=== PATIENT | male | born 1985 | race Caucasian/White ===

== ENCOUNTER 2016-07-10 13:33 | Emergency (ER) | payer MEDICARE, OTHER ==
[2016-07-10 13:33] VITALS: BMI 26.5
[2016-07-10] MEDS ORDERED: Sodium Chloride 0.9% 1,000 ML IV STA (14:10)
--- NOTE | 2016-07-10 14:10 | C.PDOC ---
History Of Present Illness Patient is a 31 y/o male, whose PMHx includes rheumatoid arthritis, psoriasis, HTN, and diabetes, brought to the ED by parents for evaluation of loss of appetite for the last 2 days. As per father, pt has been refusing to eat or drink anything for the last 2-3 days, notes eating less than usual. Father also states he noticed change in pt's urine color. HPI limited due to patient's non- verbal condition. Time Seen by Provider: 07/10/16 13:36 Chief Complaint (Nursing): GI Problem History Per: Family (father) History/Exam Limitations: no limitations Onset/Duration Of Symptoms: Days (3) Current Symptoms Are (Timing): Still Present Recent travel outside of the [place]: No Additional History Per: Family Past Medical History Reviewed: Historical Data, Nursing Documentation, Vital Signs Vital Signs: Last Vital Signs Temp 98.8 F 07/10/16 13:57 Pulse 118 H 07/10/16 13:57 Resp 18 07/10/16 13:57 BP 111/85 07/10/16 13:57 Pulse Ox 97 07/10/16 14:31 - Medical History PMH: Anemia, Anxiety, Arthritis, Asthma, Diabetes, Graves' Disease, HTN, Hypercholesterolemia, Kidney Stones, Chronic Kidney Disease, Rheumatoid Arthritis - [facility] Procedures CIRCUMCISION (04/23/14) DX ULTRASOUND-HEART (03/25/14) INFLUENZA VACCINATION (02/12/14) VACCINATION NEC (02/12/14) VENOUS CATHETERIZATION NEC (04/23/14) Family History: States: No Known Family Hx - Social History Hx Tobacco Use: No Hx Alcohol Use: No Hx Substance Use: No - Immunization History Hx Tetanus Toxoid Vaccination: Yes Hx Influenza Vaccination: Yes Hx Pneumococcal Vaccination: (unk) Review Of Systems Review Of Systems: ROS cannot be obtained secondary to pt's inabilty to answer questions. Physical Exam - Physical Exam Additional Physical Exam Comments: Constitutional: No acute distress. Head: Atraumatic. Eyes: PERRL. ENT: Moist mucous membranes. No pharyngeal erythema. Neck: Supple. Cardiovascular: Regular rate. Radial pulse 2+ bilaterally. Chest: No tenderness. Respiratory: Clear to auscultation bilaterally. GI: Soft. Nontender. Nondistended. Back: No CVA tenderness. Musculoskeletal: No tenderness or swelling of extremities. Skin: Scattered erythematous plaques with dry flaky skin in the torso and extremities. Neurologic: Alert, no focal deficit. ED Course And Treatment - Laboratory Results Result Diagrams: 07/10/16 14:36 07/10/16 14:36 O2 Sat by Pulse Oximetry: 97 Medical Decision Making Medical Decision Making: Progress note: Labs, CXR ordered and reviewed. Patient was given IV fluids. CXR: no acute changes compared to previous. UA shows UTI. Culture sent. Labs and HR at baseline, no evidence of dehydration. Will prescribe Macrobid for UTI with tapering steroid dose as parents states patient always has reaction to any antibiotic given. Instructed to f/u with PMD, continue PO hydration, and to return to ER for lethargy, vomiting, fever, or any worsening problem. Disposition - Disposition Disposition: HOME/ ROUTINE Disposition Time: 15:22 Condition: STABLE Prescriptions: Nitrofurantoin Macrocrystals [Macrobid] 100 mg PO BID #20 cap predniSONE [Prednisone] 4 tab PO DAILY #28 tab Instructions: Urinary Tract Infection in Men (ED) - Clinical Impression Clinical Impression: Urinary tract infection - Scribe Statement The provider has reviewed the documentation as recorded by the Kyleibaminah Landis Provider Attestation: All medical record entries made by the Chelsea were at my direction and personally dictated by me. I have reviewed the chart and agree that the record accurately reflects my personal performance of the history, physical exam, medical decision making, and the department course for this patient. I have also personally directed, reviewed, and agree with the discharge instructions and disposition.
[2016-07-10] MEDS ORDERED: Sodium Chloride 0.9% 1,000 ML ONE (14:25)
[2016-07-10 14:39] LABS: BASO # 0.2 K/uL (0.0-0.2); EOS # 0.2 K/uL (0.0-0.7); MONO # 1.3 K/uL (0.0-0.8); NRBC % 0.1 % (0.0-2.0)
[2016-07-10 14:45] LABS: RBC URINE 2 /hpf (0-3); URINE BILIRUBIN NEGATIVE (NEGATIVE); URINE BLOOD NEGATIVE (NEGATIVE); URINE COLOR Yellow (YELLOW); URINE GLUCOSE (UA) NORMAL (Normal); URINE KETONE NEGATIVE (NEGATIVE); URINE LEUKOCYTE ESTERASE 1+ Leu/uL (Negative); URINE PROTEIN 1+ mg/dL (NEGATIVE); URINE UROBILINOGEN NORMAL mg/dL (0.2-1.0); WBC URINE 27 /hpf (0-5)
[2016-07-10 14:52] LABS: BASO % 0.9 % (0.0-2.0); EOS % 0.9 % (0.0-4.0); HEMATOCRIT 37.4 % (35.0-51.0); LYMPH # 2.5 K/uL (1.0-4.3); LYMPH % 12.3 % (20.0-40.0); MEAN CELL VOLUME 72.7 fL (80.0-94.0); MEAN CORPUSCULAR HEMOGLOBIN 21.9 pg (27.0-31.0); MEAN CORPUSCULAR HGB CONC 30.1 g/dL (33.0-37.0); MEAN PLATELET VOLUME 6.4 fL (7.2-11.7); MONO % 6.5 % (0.0-10.0); RED CELL DISTRIBUTION WIDTH 19.4 % (11.5-14.5)
[2016-07-10 14:55] LABS: CHLORIDE 94 mmol/L (98-107); SODIUM 136 mmol/L (132-148)
[2016-07-10 14:57] LABS: GFR AFRICAN-AMERICAN > 60
[2016-07-10 14:58] LABS: ALB/GLOB RATIO 0.8 (1.0-2.1); ALKALINE PHOSPHATASE 136 U/L (38-126); ALT/SGPT 9 U/L (21-72); AST/SGOT 12 U/L (17-59); BILIRUBIN,TOTAL 0.5 mg/dL (0.2-1.3); BLOOD UREA NITROGEN 7 mg/dL (9-20); CALCIUM 9.4 mg/dl (8.6-10.4); CARBON DIOXIDE 27 mmol/L (22-30); GLUCOSE,RANDOM 128 mg/dL (75-110); TOTAL PROTEIN 8.6 g/dL (6.3-8.3)
--- NOTE | 2016-07-10 16:03 | RAD ---
HISTORY: decreased appetite COMPARISON: No prior. FINDINGS: LUNGS: Diffuse increased interstitial lung markings which may represent mild venous congestion. Upper lobe granulomatous changes. Upper lobe atelectatic changes. PLEURA: As above. CARDIOVASCULAR: Cardiomegaly which may be exaggerated by portable technique. Correlation with dedicated PA and lateral view may be helpful. Right paratracheal prominence may represent prominent vasculature. OSSEOUS STRUCTURES: No significant abnormalities. VISUALIZED UPPER ABDOMEN: Normal. OTHER FINDINGS: None. IMPRESSION: Diffuse increased interstitial lung markings which may represent mild venous congestion. Upper lobe granulomatous changes. Upper lobe atelectatic changes. Cardiomegaly which may be exaggerated by portable technique. Correlation with dedicated PA and lateral view may be helpful. Right paratracheal prominence may represent prominent vasculature.
[2016-07-10 16:18] VITALS: BP 121/78; PULSE 120; RESP 20; TEMP 99.8; O2SAT 98
== END 2016-07-10 16:19 | disposition home or self-care (01) ==
LOC: C.ER 13:33
DX: N39.0 Urinary tract infection, site not specified (principal)
CPT/HCPCS: 71010; 80053; 81001; 83690; 83735; 84100; 85025; 87040; 87086; 96360; 99285; J7040

== ENCOUNTER 2017-02-20 11:09 | Inpatient (IN) | payer MEDICARE, OTHER ==
[2017-02-20 11:25] VITALS: BMI 25.7
[2017-02-20] MEDS ORDERED: Lactated Ringer's 1,000 ML IV ONE (11:58)
--- NOTE | 2017-02-20 12:18 | C.PDOC ---
History Of Present Illness 32 y/o male with PMH of Autism, HTN, recurrent UTI, psoriasis and Rheumatoid Arthritis brought to ED by parents with complaints of worsening redness and swelling to left leg for 2 weeks and Dark yellow urine. Patient was seen by PMD 2 weeks ago and given steroids with no relief as per parents. Patient is non verbal and history obtained from parents. Parents deny patient having fever, chills, nausea, vomiting or any other complaints at this time. Time Seen by Provider: 02/20/17 11:42 Chief Complaint (Nursing): Lower Extremity Problem/Injury History Per: Family History/Exam Limitations: physical impairment (Non verbal) Onset/Duration Of Symptoms: Days Current Symptoms Are (Timing): Still Present Past Medical History Reviewed: Historical Data, Nursing Documentation, Vital Signs Vital Signs: Last Vital Signs Temp 98.4 F 02/20/17 11:25 Pulse 100 H 02/20/17 14:00 Resp 18 02/20/17 14:00 BP 126/78 02/20/17 14:00 Pulse Ox 98 02/20/17 15:54 - Medical History PMH: Anemia, Anxiety, Arthritis, Asthma, Diabetes, Graves' Disease, HTN, Hypercholesterolemia, Kidney Stones, Chronic Kidney Disease, Rheumatoid Arthritis Surgical History: No Surg Hx - [facility] Procedures CIRCUMCISION (04/23/14) DX ULTRASOUND-HEART (03/25/14) INFLUENZA VACCINATION (02/12/14) VACCINATION NEC (02/12/14) VENOUS CATHETERIZATION NEC (04/23/14) Family History: States: No Known Family Hx - Social History Hx Tobacco Use: No Hx Alcohol Use: No Hx Substance Use: No - Immunization History Hx Tetanus Toxoid Vaccination: Yes Hx Influenza Vaccination: Yes Hx Pneumococcal Vaccination: Yes Review Of Systems Review Of Systems: ROS cannot be obtained secondary to pt's inabilty to answer questions. (Patient is non verbal) Physical Exam - Physical Exam Appears: Chronically Ill, Other (muscle atrophy, non verbal) Skin: Warm, Dry, Rash (Diffuse plaque psoriasis to scalp, torso and extremities) Head: Atraumatic, Normacephalic Eye(s): bilateral: Normal Inspection Oral Mucosa: Moist Neck: Normal ROM Chest: Symmetrical Cardiovascular: Rhythm Regular Respiratory: Normal Breath Sounds, No Rales, No Rhonchi, No Wheezing Gastrointestinal/Abdominal: Soft, No Tenderness, No Guarding, No Rebound Extremity: No Normal ROM (Left leg is in flexed position, unable to extend and is baseline), No Calf Tenderness, Other (swelling and tenderness to left foot with bright erthema, pulse is weak but palpable. ) Pulses: Left Dorsalis Pedis: Decreased (+1 palpable pulse), Right Dorsalis Pedis : Decreased (+1 palpable pulse) Pain Response: Withdraws With Pain Disoriented To: Place, Time, Situation Gait: Unable To Assess ED Course And Treatment - Laboratory Results Result Diagrams: 02/20/17 12:41 02/20/17 12:41 O2 Sat by Pulse Oximetry: 98 (RA) Pulse Ox Interpretation: Normal Medical Decision Making Medical Decision Making: Case was discussed with attending Dr Soto, who also examined patient at bedside, recommends Xray of foot All labs reviewed, leukocytosis without bands. Glucose 134. Lactate 1.4. Urine shows UTI. Patient has multiple sensitivities of antibiotics. During last admission patient treated with Tigecycline and will place order. 1354 Discussed case with hospitalist who admits for Dr Hsu. Patient accepted to hospitalist service. Parents are requesting to stay with patient on floor as he is Autistic with special needs. 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 - Scribe Statement The provider has reviewed the documentation as recorded by the Kyleibaminah Field All medical record entries made by the Kyleibaminah were at my direction and personally dictated by me. I have reviewed the chart and agree that the record accurately reflects my personal performance of the history, physical exam, medical decision making, and the department course for this patient. I have also personally directed, reviewed, and agree with the discharge instructions and disposition. Decision To Admit - Pt Status Changed To: Hospital Disposition Of: Inpatient - Admit Certification Admit to Inpatient:: After my assessment, the patient will require hospitalization for at least two midnights. This is because of the severity of symptoms shown, intensity of services needed, and/or the medical risk in this patient being treated as an outpatient. - InPatient: Physician Admission Certification: I certify that this patient requires 2 or more midnights of care for the following reason:: Patient with PMH Autism has acute UTI, which are recurrent. Patient has multiple sensitivities of antibiotics, will need ID consult. Patient with special needs and will benefit from inpatient treatment of UTI with IV antibiotics. - . Bed Request Type: Regular Admitting Physician: Doc Springer Patient Diagnosis: Urinary tract infection, Foot swelling, Rheumatoid arthritis
[2017-02-20 12:37] LABS: RBC URINE 128 /hpf (0-3); URINE BILIRUBIN NEGATIVE (NEGATIVE); URINE BLOOD 3+ (NEGATIVE); URINE COLOR Yellow (YELLOW); URINE GLUCOSE (UA) NORMAL (Normal); URINE KETONE NEGATIVE (NEGATIVE); URINE LEUKOCYTE ESTERASE 2+ Leu/uL (Negative); URINE PROTEIN 2+ mg/dL (NEGATIVE); WBC URINE 24 /hpf (0-5)
[2017-02-20 12:46] LABS: BASO # 0.1 K/uL (0.0-0.2); BASO % 0.7 % (0.0-2.0); EOS # 0.1 K/uL (0.0-0.7); EOS % 0.5 % (0.0-4.0); HEMATOCRIT 35.9 % (35.0-51.0); LYMPH # 2.7 K/uL (1.0-4.3); LYMPH % 13.5 % (20.0-40.0); MEAN CORPUSCULAR HEMOGLOBIN 24.1 pg (27.0-31.0); MEAN CORPUSCULAR HGB CONC 31.2 g/dL (33.0-37.0); MEAN PLATELET VOLUME 6.5 fL (7.2-11.7); MONO # 1.5 K/uL (0.0-0.8); MONO % 7.4 % (0.0-10.0); WHITE BLOOD COUNT 20.2 K/uL (4.8-10.8)
[2017-02-20 12:50] LABS: MEAN CELL VOLUME 77.1 fL (80.0-94.0)
[2017-02-20 13:00] LABS: ALKALINE PHOSPHATASE 133 U/L (38-126); ALT/SGPT 31 U/L (21-72); AST/SGOT 14 U/L (17-59); BILIRUBIN,TOTAL 0.6 mg/dL (0.2-1.3); BLOOD UREA NITROGEN 9 mg/dL (9-20); CALCIUM 8.6 mg/dl (8.6-10.4); CARBON DIOXIDE 27 mmol/L (22-30); CHLORIDE 98 mmol/L (98-107); GFR AFRICAN-AMERICAN > 60; GLUCOSE,RANDOM 134 mg/dL (75-110); POTASSIUM 3.5 mmol/L (3.6-5.2); SODIUM 134 mmol/L (132-148); TOTAL PROTEIN 7.4 g/dL (6.3-8.3)
--- NOTE | 2017-02-20 13:27 | RAD ---
PROCEDURE: Left Foot Radiographs. HISTORY: swelling to foot, h.o RA COMPARISON: None. FINDINGS: BONES: Normal. No fracture. JOINTS: There is joint space narrowing of the MTP and PIP joints. There is no obvious bony erosive change. There is osteopenia SOFT TISSUES: Normal. OTHER FINDINGS: None. IMPRESSION: There is joint space narrowing of the MTP and PIP joints. There is no obvious bony erosive change. There is osteopenia
--- NOTE | 2017-02-20 16:18 | CP.PCM.HP ---
<ToniEphraim bañuelosri NenoJames - Last Filed: 02/20/17 16:20> History of Present Illness - History of Present Illness History of Present Illness: CC: UTI, lower extremity edema HPI: Patient is a 32 year old male who is nonverbal with a history of autism, asthma, HTN, DM, chronic UTI, nephrolithiasis, psoriasis, and RA, presents to the ED with his parents (Darrell- Mother, Gerardo- Father) with the complaint of worsening redness and swelling of his left leg as well as dark yellow urine. The leg swelling began three weeks ago and has been intermittent, but has recently gotten worse. Patient saw PMD, Dr. Verdin) who prescribed 20 mg for five days (stopped two weeks ago) with no relief. Patient has been bed bound for the past two years due to worsening RA and psoriasis. As per the parents, the patient keeps his left leg bent at 90 degrees and cannot extend due to the pain. The patient also becomes very upset if the leg lower extremity is touched. As per the parents, the patient has also had 2-3 days of uncontrolled bowel movements, described as green and foul smelling; Patient's parents denies diarrhea, vomiting, and fevers. PMD: Dr. Verdin PMHx: autism, asthma, HTN, DM, chronic UTI, nephrolithiasis, psoriasis, and RA SurgHx: circumcision 2014 (for chronic UTI) FamHx: Aunt- breast cancer; grandparents- DM, HTN, [place] SocHx: denies tobacco, alcohol, and drug use; Lives with parents at home (Kristahia - Mother, Gerardo- Father) Allergies: multiple, please see EMR Medications: multiple, please see EMR Present on Admission - Present on Admission Any Indicators Present on Admission: No Review of Systems - Review of Systems Systems not reviewed;Unavailable: Other (Patient is nonverbal.) Past Patient History - Infectious Disease Hx of Infectious Diseases: None - Past Medical History & Family History Past Medical History?: Yes - Past Social History Smoking Status: Never Smoked - CARDIAC Hx Hypercholesterolemia: Yes Hx Hypertension: Yes - PULMONARY Hx Asthma: Yes - NEUROLOGICAL Hx Neurological Disorder: Yes Other/Comment: autism - HEENT Hx HEENT Problems: No - RENAL Hx Chronic Kidney Disease: Yes Hx Kidney Stones: Yes - ENDOCRINE/METABOLIC Hx Endocrine Disorders: Yes Hx Diabetes Mellitus Type 1: Yes Hx Diabetes Mellitus Type 2: Yes - HEMATOLOGICAL/ONCOLOGICAL Hx Anemia: Yes - INTEGUMENTARY Hx Dermatological Problems: Yes Hx Psoriasis: Yes - MUSCULOSKELETAL/RHEUMATOLOGICAL Hx Arthritis: Yes Hx Rheumatoid Arthritis: Yes - GASTROINTESTINAL Hx Gastrointestinal Disorders: Yes Hx Gastroesophageal Reflux: Yes - GENITOURINARY/GYNECOLOGICAL Hx Genitourinary Disorders: Yes Hx Urinary Tract Infection: Yes - PSYCHIATRIC Hx Anxiety: Yes Hx Substance Use: No - SURGICAL HISTORY Hx Surgeries: Yes Other/Comment: H/O Venous catheterization,Circumcision last Apr 2014 - ANESTHESIA Hx Anesthesia: Yes Hx Anesthesia Reactions: No Hx Malignant Hyperthermia: No Meds Allergies/Adverse Reactions: Allergies Allergy/AdvReac Type Severity Reaction Status Date / Time ciprofloxacin [From Cipro] Allergy Severe URTICARIA Verified 07/10/16 13:53 ciprofloxacin HCl Allergy Severe URTICARIA Verified 07/10/16 13:53 [From Cipro] piperacillin sodium Allergy Severe URTICARIA Verified 07/10/16 13:53 [From Zosyn] sulfamethoxazole Allergy Severe URTICARIA Verified 07/10/16 13:53 [From Bactrim] tazobactam sodium Allergy Severe URTICARIA Verified 07/10/16 13:53 [From Zosyn] tetracycline Allergy Severe URTICARIA Verified 07/10/16 13:53 trimethoprim [From Bactrim] Allergy Severe URTICARIA Verified 07/10/16 13:53 Penicillins Allergy URTICARIA Verified 07/10/16 13:53 Physical Exam - Head Exam Head Exam: NORMOCEPHALIC Additional comments: Psoriatic lesions/plaques on scalp - Eye Exam Eye Exam: EOMI, Normal appearance - ENT Exam ENT Exam: Mucous Membranes Moist - Respiratory Exam Respiratory Exam: Decreased Breath Sounds (patient not cooperative with exam), Clear to Auscultation Bilateral, NORMAL BREATHING PATTERN. absent: Rhonchi, Wheezes, Respiratory Distress - Cardiovascular Exam Cardiovascular Exam: REGULAR RHYTHM, +S1, +S2 - GI/Abdominal Exam GI & Abdominal Exam: Normal Bowel Sounds, Soft. absent: Distended, Firm, Guarding, Mass - Extremities Exam Extremities exam: Positive for: joint swelling (Left knee, ankle foot- swelling , erythematous, tender to palpation, decreased ROM (pt keeps leg flexed at 90deg and cannot extend 2/2 pain)), pedal edema. Negative for: normal inspection - Neurological Exam Neurological exam: Alert, Altered - Psychiatric Exam Additional comments: Patient has history of autism. - Skin Additional comments: Psoriatic lesions/plaques throughout entire body. Results - Vital Signs Recent Vital Signs: Last Vital Signs Temp 98.4 F 02/20/17 11:25 Pulse 100 H 02/20/17 14:00 Resp 18 02/20/17 14:00 BP 126/78 02/20/17 14:00 Pulse Ox 98 02/20/17 15:56 - Labs Result Diagrams: 02/20/17 12:41 02/20/17 12:41 Labs: Laboratory Results - last 24 hr 02/20/17 02/20/17 02/20/17 12:12 12:41 12:41 WBC 20.2 H RBC 4.66 Hgb 11.2 L Hct 35.9 MCV 77.1 L D MCH 24.1 L MCHC 31.2 L RDW 20.0 H Plt Count 662 H D MPV 6.5 L Neut % (Auto) 77.9 H Lymph % (Auto) 13.5 L [place] % (Auto) 7.4 Eos % (Auto) 0.5 Baso % (Auto) 0.7 Neut # 15.8 H Lymph # 2.7 [place] # 1.5 H Eos # 0.1 Baso # 0.1 Sodium 134 Potassium 3.5 L Chloride 98 Carbon Dioxide 27 Anion Gap 13 BUN 9 Creatinine 0.3 L Est GFR ( Amer) > 60 Est GFR (Non-Af Amer) > 60 Random Glucose 134 H Lactic Acid Calcium 8.6 Total Bilirubin 0.6 AST 14 L ALT 31 Alkaline Phosphatase 133 H Total Protein 7.4 Albumin 3.8 Globulin 3.6 Albumin/Globulin Ratio 1.0 Urine Color Yellow Urine Clarity Hazy Urine pH 6.0 Ur Specific Randall 1.016 Urine Protein 2+ H Urine Glucose (UA) Normal Urine Ketones Negative Urine Blood 3+ H Urine Nitrate Negative Urine Bilirubin Negative Urine Urobilinogen 2.0 Ur Leukocyte Esterase 2+ H Urine WBC (Auto) 24 H Urine RBC (Auto) 128 H Ur Squamous Epith Cells 1 Hyaline Casts 3-5 H 02/20/17 12:41 WBC RBC Hgb Hct MCV MCH MCHC RDW Plt Count MPV Neut % (Auto) Lymph % (Auto) [place] % (Auto) Eos % (Auto) Baso % (Auto) Neut # Lymph # [place] # Eos # Baso # Sodium Potassium Chloride Carbon Dioxide Anion Gap BUN Creatinine Est GFR ( Amer) Est GFR (Non-Af Amer) Random Glucose Lactic Acid 1.5 Calcium Total Bilirubin AST ALT Alkaline Phosphatase Total Protein Albumin Globulin Albumin/Globulin Ratio Urine Color Urine Clarity Urine pH Ur Specific Randall Urine Protein Urine Glucose (UA) Urine Ketones Urine Blood Urine Nitrate Urine Bilirubin Urine Urobilinogen Ur Leukocyte Esterase Urine WBC (Auto) Urine RBC (Auto) Ur Squamous Epith Cells Hyaline Casts Assessment & Plan (1) Swelling of left lower extremity Assessment and Plan: Foot xray: joint space narrowing of MTP & PIP joints; no bony or erosive changes ; there is osteopenia. Possibly secondary to infection, psoriasis, or RA. ID consulted, Dr. Cazares, help appreciated. Status: Acute (2) Urinary tract infection Assessment and Plan: Patient has a history of chronic UTIs; Patient has a circumcision in 2014 for chronic UTIs. Leukocytosis likely secondary to UTI. UA: 2+ protein, 3+ blood, 2+ LE, 24WBC, 128 RBCs, 3-5 hyaline casts. Urine cx: f/u results In ED, patient was given one dose of Tigecycline. Patient has multiple drug allergies, and a history of multiresistant UTIs. ID consulted, Dr. Cazares, help appreciated. Antibiotics will be started as per ID. Status: Acute (3) Leukocytosis Assessment and Plan: Likely secondary to UTI WBC 20.2 at admission Afebrile Patient received one dose of Tigecycline in ED. ID consulted, Dr. Cazares, help appreciated Antibiotics will be started as per ID. Blood cx: f/u results Urine cx: f/u results Status: Acute (4) HTN (hypertension) Assessment and Plan: Continue home medications. Monitor vitals. Status: Acute (5) Abnormal bowel movement Assessment and Plan: C.Diff: f/u results Stool cx: f/u results Ova&parasites: f/u results Stool leukocytes: f/u results Status: Acute (6) Rheumatoid arthritis Assessment and Plan: Left LE swelling and erythema, possibly secondary to rheumatoid arthritis Status: Chronic (7) Autism disorder Assessment and Plan: Parents, Darrell and Gerardo, have requested patient has private room. Parents report they will be with patient 24/10, as patient needs constant assistance. Status: Chronic Priority: Low (8) Psoriasis Assessment and Plan: Left LE swelling and erythema, possibly secondary to psorasis vs infection secondary to psoriatic lesions Status: Chronic (9) Diabetes mellitus Assessment and Plan: Home medication, Metformin, held. ISS Accuchecks Monitor daily blood glucose A1c: f/u results Status: Chronic Priority: Medium (10) Prophylactic measure Assessment and Plan: C/I SCDs 2/2 LE swelling and pain Pepcid 20mg PO BID Heparin 5,000 SC Q8h Consistent low carb heart healthy diet Status: Acute <Doc Springer - Last Filed: 02/20/17 19:10> Results - Vital Signs Recent Vital Signs: Last Vital Signs Temp 98.4 F 02/20/17 11:25 Pulse 100 H 02/20/17 14:00 Resp 18 02/20/17 14:00 BP 126/78 02/20/17 14:00 Pulse Ox 98 02/20/17 15:56 - Labs Result Diagrams: 02/20/17 12:41 02/20/17 12:41 Labs: Laboratory Results - last 24 hr 02/20/17 02/20/17 02/20/17 12:12 12:41 12:41 WBC 20.2 H RBC 4.66 Hgb 11.2 L Hct 35.9 MCV 77.1 L D MCH 24.1 L MCHC 31.2 L RDW 20.0 H Plt Count 662 H D MPV 6.5 L Neut % (Auto) 77.9 H Lymph % (Auto) 13.5 L [place] % (Auto) 7.4 Eos % (Auto) 0.5 Baso % (Auto) 0.7 Neut # 15.8 H Lymph # 2.7 [place] # 1.5 H Eos # 0.1 Baso # 0.1 Sodium 134 Potassium 3.5 L Chloride 98 Carbon Dioxide 27 Anion Gap 13 BUN 9 Creatinine 0.3 L Est GFR ( Amer) > 60 Est GFR (Non-Af Amer) > 60 POC Glucose (mg/dL) Random Glucose 134 H Lactic Acid Calcium 8.6 Total Bilirubin 0.6 AST 14 L ALT 31 Alkaline Phosphatase 133 H Total Protein 7.4 Albumin 3.8 Globulin 3.6 Albumin/Globulin Ratio 1.0 Urine Color Yellow Urine Clarity Hazy Urine pH 6.0 Ur Specific Randall 1.016 Urine Protein 2+ H Urine Glucose (UA) Normal Urine Ketones Negative Urine Blood 3+ H Urine Nitrate Negative Urine Bilirubin Negative Urine Urobilinogen 2.0 Ur Leukocyte Esterase 2+ H Urine WBC (Auto) 24 H Urine RBC (Auto) 128 H Ur Squamous Epith Cells 1 Hyaline Casts 3-5 H 02/20/17 02/20/17 12:41 17:18 WBC RBC Hgb Hct MCV MCH MCHC RDW Plt Count MPV Neut % (Auto) Lymph % (Auto) [place] % (Auto) Eos % (Auto) Baso % (Auto) Neut # Lymph # [place] # Eos # Baso # Sodium Potassium Chloride Carbon Dioxide Anion Gap BUN Creatinine Est GFR ( Amer) Est GFR (Non-Af Amer) POC Glucose (mg/dL) 187 H Random Glucose Lactic Acid 1.5 Calcium Total Bilirubin AST ALT Alkaline Phosphatase Total Protein Albumin Globulin Albumin/Globulin Ratio Urine Color Urine Clarity Urine pH Ur Specific Randall Urine Protein Urine Glucose (UA) Urine Ketones Urine Blood Urine Nitrate Urine Bilirubin Urine Urobilinogen Ur Leukocyte Esterase Urine WBC (Auto) Urine RBC (Auto) Ur Squamous Epith Cells Hyaline Casts Attending/Attestation - Attestation I have personally seen and examined this patient.: Yes I have fully participated in the care of the patient.: Yes I have reviewed all pertinent clinical information: Yes Notes (Text): Patient is a 32 year old male who is nonverbal with a history of autism, asthma , HTN, DM, chronic UTI, nephrolithiasis, psoriasis, and RA, presents to the ED with his parents (Darrell- Mother, Gerardo- Father) with the complaint of worsening redness and swelling of his left leg as well as dark yellow urine. Patient was seen and examined.Discussed with his parents at bedside.Patient has psoriasis rash,severe on his scalp and extremities.Has feet edema with cellulites. Has leukocytosis with UA positive for UTI.No fever,no cough,no abdominal pain. He has multiple drug allergy.He was on levaquin at home for UTI.He is bed bound He was given Tigecycline at ER Discussed with the resident I agree with the documentation of the assessment and the plan
[2017-02-20] MEDS: (Novolin R) Insulin Human Regular 100 units/ml vial SC SCH ×2 (16:30→22:09)
[2017-02-20] MEDS ORDERED: LEVOFLOXACIN 500 MG PO SCH (17:30)
[2017-02-20] MEDS: Sodium Chloride 0.9% 1,000 ML IV SCH (18:02)
[2017-02-20] MEDS ORDERED: Meropenem 1 GM in Sodium Chloride 0.9% 100 ML IVPB SCH (22:00)
[2017-02-21] MEDS: Sodium Chloride 0.9% 1,000 ML IV SCH ×2 (02:15→05:32)
[2017-02-21 07:43] LABS: BASO % 0.1 % (0.0-2.0); HEMATOCRIT 37.2 % (35.0-51.0); LYMPH # 0.4 K/uL (1.0-4.3); LYMPH % 2.5 % (20.0-40.0); MEAN CELL VOLUME 78.4 fL (80.0-94.0); MEAN CORPUSCULAR HEMOGLOBIN 24.7 pg (27.0-31.0); MEAN CORPUSCULAR HGB CONC 31.5 g/dL (33.0-37.0); MEAN PLATELET VOLUME 7.3 fL (7.2-11.7); MONO # 0.1 K/uL (0.0-0.8); MONO % 0.6 % (0.0-10.0); PLATELET COUNT 623 K/uL (130-400); RED CELL DISTRIBUTION WIDTH 20.1 % (11.5-14.5); WHITE BLOOD COUNT 17.7 K/uL (4.8-10.8)
[2017-02-21] MEDS: Albuterol HFA 90 mcg/actuation (8 g) IH SCH (07:48)
[2017-02-21] MEDS: (Novolin R) Insulin Human Regular 100 units/ml vial SC SCH ×4 (08:22→22:50)
[2017-02-21 08:23] LABS: ALB/GLOB RATIO 1.1 (1.0-2.1); ALKALINE PHOSPHATASE 147 U/L (38-126); ALT/SGPT 26 U/L (21-72); AST/SGOT 18 U/L (17-59); BILIRUBIN,TOTAL 0.6 mg/dL (0.2-1.3); BLOOD UREA NITROGEN 9 mg/dL (9-20); CALCIUM 8.5 mg/dl (8.6-10.4); CARBON DIOXIDE 23 mmol/L (22-30); CHLORIDE 98 mmol/L (98-107); GFR AFRICAN-AMERICAN > 60; GLUCOSE,RANDOM 249 mg/dL (75-110); POTASSIUM 3.7 mmol/L (3.6-5.2); SODIUM 134 mmol/L (132-148); TOTAL PROTEIN 7.2 g/dL (6.3-8.3)
[2017-02-21 08:50] LABS: TOTAL CELLS COUNTED 100
[2017-02-21 08:51] LABS: LARGE PLATELETS PRESENT; NEUTROPHIL 98 % (50-75)
--- NOTE | 2017-02-21 10:04 | CP.PCM.PN ---
<Stephani Alcaraz - Last Filed: 02/21/17 15:53> Subjective - Date & Time of Evaluation Date of Evaluation: 02/21/17 Time of Evaluation: 10:01 - Subjective Subjective: Patient was seen and examined at bedside with mother in room. As per the mother , patient was itchy yesterday afternoon, but that resolved overnight and patient had no other events. Mother reports the patient has developed a cough this morning, but is unsure if its productive as the patient cannot bring up any mucus. ROS not obtained as patient is nonverbal. Objective - Vital Signs/Intake and Output Vital Signs (last 24 hours): Temp Pulse Resp BP Pulse Ox 97.9 F 123 H 20 153/85 H 98 02/21/17 09:00 02/21/17 09:00 02/21/17 09:00 02/21/17 09:00 02/21/17 09:00 Intake and Output: 02/21/17 02/21/17 06:59 18:59 Intake Total 850 1320 Output Total 650 Balance 850 670 - Medications Medications: Current Medications Albuterol (Ventolin Hfa 90 Mcg/Actuation (8 G)) 1 puff IH RBID [facility] Last Admin: 02/21/17 07:48 Dose: Not Given Amlodipine Besylate (Norvasc) 5 mg PO BID [facility] Last Admin: 02/20/17 18:05 Dose: 5 mg Dicyclomine HCl (Bentyl) 20 mg PO BID [facility] Last Admin: 02/20/17 22:08 Dose: 20 mg Diphenhydramine HCl (Benadryl) 25 mg PO Q8 PRN PRN Reason: Itching,IF NO RELIEF W/ CREAM Last Admin: 02/21/17 05:18 Dose: 25 mg Famotidine (Pepcid) 20 mg PO BID [facility] Last Admin: 02/20/17 18:05 Dose: 20 mg Ferrous Sulfate (Feosol) 325 mg PO BID [facility] Last Admin: 02/20/17 19:29 Dose: 325 mg Heparin Sodium (Porcine) (Heparin) 5,000 units SC Q8 [facility] Last Admin: 02/21/17 05:19 Dose: 5,000 units Hydrocortisone (Cortizone 1% Cream) 1 gm TOP BID PRN PRN Reason: Itching / Pruritus Sodium Chloride (Sodium Chloride 0.9%) 1,000 mls @ 100 mls/hr IV .Q10H [facility] Last Admin: 02/21/17 05:32 Dose: 100 mls/hr Meropenem 1 gm/ Sodium (Chloride) 50 mls @ 100 mls/hr IVPB Q8 [facility] Last Admin: 02/21/17 05:19 Dose: 100 mls/hr Insulin Human Regular (Novolin R) 0 unit SC ACHS [facility] PRN Reason: Protocol Last Admin: 02/21/17 08:22 Dose: 3 unit Losartan Potassium (Cozaar) 100 mg PO DAILY [facility] Montelukast Sodium (Singulair) 10 mg PO HS [facility] Last Admin: 02/20/17 22:23 Dose: 10 mg - Labs Labs: 02/21/17 07:29 02/21/17 07:29 - Additional Findings Additional findings: - Head Exam Head Exam: NORMOCEPHALIC Additional comments: Psoriatic lesions/plaques on scalp - Eye Exam Eye Exam: EOMI, Normal appearance - ENT Exam ENT Exam: Mucous Membranes Moist - Respiratory Exam Respiratory Exam: Decreased Breath Sounds (patient not cooperative with exam), Clear to Auscultation Bilateral, NORMAL BREATHING PATTERN. absent: Rhonchi, Wheezes, Respiratory Distress - Cardiovascular Exam Cardiovascular Exam: REGULAR RHYTHM, +S1, +S2 - GI/Abdominal Exam GI & Abdominal Exam: Normal Bowel Sounds, Soft. absent: Distended, Firm, Guarding, Mass - Extremities Exam Extremities exam: Positive for: joint swelling (Left knee, ankle foot- swelling , erythematous, tender to palpation, decreased ROM (pt keeps leg flexed at 90deg and cannot extend 2/2 pain)), pedal edema. Negative for: normal inspection - Neurological Exam Neurological exam: Alert, Altered - Psychiatric Exam Additional comments: Patient has history of autism. - Skin Additional comments: Left foot/ankle- erythematous, swelling noted; tender to palpation Psoriatic lesions/plaques throughout entire body. Assessment and Plan (1) Cellulitis of left leg Status: Acute (2) Urinary tract infection Status: Acute (3) Leukocytosis Status: Acute (4) HTN (hypertension) Status: Acute (5) Abnormal bowel movement Status: Acute (6) Rheumatoid arthritis Status: Chronic (7) Autism disorder Status: Chronic (8) Psoriasis Status: Chronic (9) Diabetes mellitus Status: Chronic (10) Prophylactic measure Status: Acute - Assessment and Plan (Free Text) Plan: Assessment & Plan (1) Cellulitis of left leg Assessment and Plan: Foot xray: joint space narrowing of MTP & PIP joints; no bony or erosive changes ; there is osteopenia. Possibly secondary to infection, psoriasis, or RA. ID consulted, Dr. Cazares, help appreciated. Podiatry consulted for nail clipping Status: Acute (2) Urinary tract infection Assessment and Plan: Patient has a history of chronic UTIs; Patient has a circumcision in 2014 for chronic UTIs. Leukocytosis likely secondary to UTI. UA: 2+ protein, 3+ blood, 2+ LE, 24WBC, 128 RBCs, 3-5 hyaline casts. Urine cx: no growth In ED, patient was given one dose of Tigecycline. Patient has multiple drug allergies, and a history of multiresistant UTIs. ID consulted, Dr. Cazares, help appreciated. Antibiotics will be started as per ID. * Started Meropenem 1gm IVPB Q8h 02/20 Status: Acute (3) Leukocytosis Assessment and Plan: Likely secondary to UTI WBC 20.2 at admission Improving, trending down 02/21: 17.7 Afebrile Patient received one dose of Tigecycline in ED. ID consulted, Dr. Cazares, help appreciated Antibiotics will be started as per ID. * Started Meropenem 1gm IVPB Q8h 02/20 Blood cx: f/u results Urine cx: no growth Status: Acute (4) HTN (hypertension) Assessment and Plan: Continue home medications. Monitor vitals. Status: Acute (5) Abnormal bowel movement Assessment and Plan: C.Diff: f/u results Stool cx: f/u results Ova&parasites: f/u results Stool leukocytes: f/u results Status: Acute (6) Rheumatoid arthritis Assessment and Plan: Left LE swelling and erythema, possibly secondary to rheumatoid arthritis Status: Chronic (7) Autism disorder Assessment and Plan: Parents, Darrell and Gerardo, have requested patient has private room. Parents report they will be with patient 24/10, as patient needs constant assistance. Status: Chronic (8) Psoriasis Assessment and Plan: Left LE swelling and erythema, likley secondary to cellulitis, but may be secondary to psorasis Hydrocortisone 1% topically as needed Status: Chronic (9) Diabetes mellitus Assessment and Plan: Home medication, Metformin, held. ISS Accuchecks Monitor daily blood glucose A1c: 6.9 Status: Chronic (10) Cough Assessment and Plan: Chest xray: mild venous congestion; right hilar prominence; biapical thickening with upper lobe granulomatous changes; cardiomegaly. (11) Prophylactic measure Assessment and Plan: C/I SCDs 2/2 LE swelling and pain Pepcid 20mg PO BID Heparin 5,000 SC Q8h Consistent low carb heart healthy diet Status: Acute <Doc Springer - Last Filed: 02/24/17 18:02> Objective - Vital Signs/Intake and Output Vital Signs (last 24 hours): Temp Pulse Resp BP Pulse Ox 97.3 F L 117 H 19 127/78 97 02/24/17 16:29 02/24/17 16:29 02/24/17 16:29 02/24/17 16:29 02/24/17 16:29 Intake and Output: 02/24/17 02/24/17 06:59 18:59 Intake Total 980 Balance 980 - Medications Medications: Current Medications Albuterol (Ventolin Hfa 90 Mcg/Actuation (8 G)) 1 puff IH RBID [facility] Last Admin: 02/24/17 07:51 Dose: Not Given Amlodipine Besylate (Norvasc) 5 mg PO BID [facility] Last Admin: 02/24/17 17:23 Dose: 5 mg Clobetasol Propionate (Temovate 0.05% Ointment) 1 applic TOP BID [facility] Last Admin: 02/24/17 17:25 Dose: 1 applic Clotrimazole (Lotrimin 1%) 0 gm TOP BID [facility] Last Admin: 02/24/17 17:24 Dose: 1 applic Dicyclomine HCl (Bentyl) 20 mg PO BID [facility] Last Admin: 02/24/17 17:23 Dose: 20 mg Diphenhydramine HCl (Benadryl) 25 mg PO Q6H PRN PRN Reason: Itching,IF NO RELIEF W/ CREAM Last Admin: 02/23/17 10:04 Dose: 25 mg Famotidine (Pepcid) 20 mg PO BID [facility] Last Admin: 02/24/17 17:23 Dose: 20 mg Ferrous Sulfate (Feosol) 325 mg PO BID [facility] Last Admin: 02/24/17 17:23 Dose: 325 mg Heparin Sodium (Porcine) (Heparin) 5,000 units SC Q8 [facility] Last Admin: 02/24/17 13:09 Dose: 5,000 units Hydrocortisone (Cortizone 1% Cream) 1 gm TOP BID PRN PRN Reason: Itching / Pruritus Last Admin: 02/24/17 17:24 Dose: 1 applic Sodium Chloride (Sodium Chloride 0.45%) 1,000 mls @ 100 mls/hr IV .Q10H [facility] Last Admin: 02/24/17 14:24 Dose: 100 mls/hr Insulin Human Regular (Novolin R) 0 unit SC ACHS [facility] PRN Reason: Protocol Last Admin: 02/24/17 16:44 Dose: Not Given Losartan Potassium (Cozaar) 100 mg PO DAILY [facility] Last Admin: 02/24/17 09:53 Dose: 100 mg Montelukast Sodium (Singulair) 10 mg PO HS [facility] Last Admin: 02/23/17 22:08 Dose: 10 mg Saccharomyces Boulardii (Florastor) 250 mg PO DAILY [facility] Last Admin: 02/24/17 09:52 Dose: 250 mg - Labs Labs: 02/24/17 07:59 02/24/17 07:59 Attending/Attestation - Attestation I have personally seen and examined this patient.: Yes I have fully participated in the care of the patient.: Yes I have reviewed all pertinent clinical information, including history, physical exam and plan: Yes Notes (Text): patient was seen and examined d/w parent and the resident I agree with the residents documentation,assessment and the plan
--- NOTE | 2017-02-21 11:02 | RAD ---
Chest x-ray single frontal view History: Chest infection. Comparison: 07/10/2016 Findings: Mild diffuse increased interstitial lung markings suggestive for mild venous congestion. Right hilar prominence. Biapical pleural thickening with upper lobe granulomatous changes. Cardiomegaly. Degenerative changes in the spine and shoulders. Impression: Mild diffuse increased interstitial lung markings suggestive for mild venous congestion. Right hilar prominence. Biapical pleural thickening with upper lobe granulomatous changes. Cardiomegaly.
[2017-02-21] MEDS: Hydrocortisone 1% Cream (30 GM) TOP PRN (13:19)
--- NOTE | 2017-02-21 14:24 | CP.PCM.CON ---
History of Present Illness - History of Present Illness History of Present Illness: dictated Past Patient History - Infectious Disease Hx of Infectious Diseases: None - Past Medical History & Family History Past Medical History?: Yes - Past Social History Smoking Status: Never Smoked - CARDIAC Hx Hypercholesterolemia: Yes Hx Hypertension: Yes - PULMONARY Hx Asthma: Yes - NEUROLOGICAL Hx Neurological Disorder: Yes Other/Comment: autism - HEENT Hx HEENT Problems: No - RENAL Hx Chronic Kidney Disease: Yes Hx Kidney Stones: Yes - ENDOCRINE/METABOLIC Hx Endocrine Disorders: Yes Hx Diabetes Mellitus Type 1: Yes Hx Diabetes Mellitus Type 2: Yes - HEMATOLOGICAL/ONCOLOGICAL Hx Anemia: Yes - INTEGUMENTARY Hx Dermatological Problems: Yes Hx Psoriasis: Yes - MUSCULOSKELETAL/RHEUMATOLOGICAL Hx Arthritis: Yes Hx Falls: No Hx Rheumatoid Arthritis: Yes - GASTROINTESTINAL Hx Gastrointestinal Disorders: Yes Hx Gastroesophageal Reflux: Yes - GENITOURINARY/GYNECOLOGICAL Hx Genitourinary Disorders: Yes Hx Urinary Tract Infection: Yes - PSYCHIATRIC Hx Anxiety: Yes Hx Substance Use: No - SURGICAL HISTORY Hx Surgeries: Yes Other/Comment: H/O Venous catheterization,Circumcision last Apr 2014 - ANESTHESIA Hx Anesthesia: Yes Hx Anesthesia Reactions: No Hx Malignant Hyperthermia: No Meds Allergies/Adverse Reactions: Allergies Allergy/AdvReac Type Severity Reaction Status Date / Time ciprofloxacin [From Cipro] Allergy Severe URTICARIA Verified 07/10/16 13:53 ciprofloxacin HCl Allergy Severe URTICARIA Verified 07/10/16 13:53 [From Cipro] piperacillin sodium Allergy Severe URTICARIA Verified 07/10/16 13:53 [From Zosyn] sulfamethoxazole Allergy Severe URTICARIA Verified 07/10/16 13:53 [From Bactrim] tazobactam sodium Allergy Severe URTICARIA Verified 07/10/16 13:53 [From Zosyn] tetracycline Allergy Severe URTICARIA Verified 07/10/16 13:53 trimethoprim [From Bactrim] Allergy Severe URTICARIA Verified 07/10/16 13:53 Penicillins Allergy URTICARIA Verified 07/10/16 13:53 - Medications Medications: Current Medications Albuterol (Ventolin Hfa 90 Mcg/Actuation (8 G)) 1 puff IH RBID [facility] Last Admin: 02/21/17 07:48 Dose: Not Given Amlodipine Besylate (Norvasc) 5 mg PO BID [facility] Last Admin: 02/21/17 11:38 Dose: 5 mg Dicyclomine HCl (Bentyl) 20 mg PO BID [facility] Last Admin: 02/21/17 11:38 Dose: 20 mg Diphenhydramine HCl (Benadryl) 25 mg PO Q8 PRN PRN Reason: Itching,IF NO RELIEF W/ CREAM Last Admin: 02/21/17 13:19 Dose: 25 mg Famotidine (Pepcid) 20 mg PO BID [facility] Last Admin: 02/21/17 11:38 Dose: 20 mg Ferrous Sulfate (Feosol) 325 mg PO BID [facility] Last Admin: 02/21/17 11:38 Dose: 325 mg Heparin Sodium (Porcine) (Heparin) 5,000 units SC Q8 [facility] Last Admin: 02/21/17 13:20 Dose: 5,000 units Hydrocortisone (Cortizone 1% Cream) 1 gm TOP BID PRN PRN Reason: Itching / Pruritus Last Admin: 02/21/17 13:19 Dose: 1 applic Sodium Chloride (Sodium Chloride 0.9%) 1,000 mls @ 100 mls/hr IV .Q10H [facility] Last Admin: 02/21/17 05:32 Dose: 100 mls/hr Meropenem 1 gm/ Sodium (Chloride) 50 mls @ 100 mls/hr IVPB Q8 [facility] Last Admin: 02/21/17 13:21 Dose: 100 mls/hr Insulin Human Regular (Novolin R) 0 unit SC ACHS [facility] PRN Reason: Protocol Last Admin: 02/21/17 12:35 Dose: 3 unit Losartan Potassium (Cozaar) 100 mg PO DAILY [facility] Last Admin: 02/21/17 11:38 Dose: 100 mg Montelukast Sodium (Singulair) 10 mg PO HS [facility] Last Admin: 02/20/17 22:23 Dose: 10 mg Results - Vital Signs Recent Vital Signs: Last Vital Signs Temp 97.9 F 02/21/17 09:00 Pulse 123 H 02/21/17 09:00 Resp 20 02/21/17 09:00 BP 153/85 H 02/21/17 09:00 Pulse Ox 98 02/21/17 09:00 - Labs Result Diagrams: 02/21/17 07:29 02/21/17 07:29 Labs: Laboratory Results - last 24 hr 02/20/17 02/20/17 02/21/17 17:18 21:34 07:29 WBC 17.7 H RBC 4.75 Hgb 11.7 L Hct 37.2 MCV 78.4 L MCH 24.7 L MCHC 31.5 L RDW 20.1 H Plt Count 623 H MPV 7.3 Neut % (Auto) 96.8 H Lymph % (Auto) 2.5 L Gaston % (Auto) 0.6 Eos % (Auto) 0.0 Baso % (Auto) 0.1 Neut # 17.2 H Lymph # 0.4 L Gaston # 0.1 Eos # 0.0 Baso # 0.0 Neutrophils % (Manual) 98 H Lymphocytes % (Manual) 2 L Monocytes % (Manual) TEST NOT PERFORMED Platelet Estimate Increased H Large Platelets Present Sodium Potassium Chloride Carbon Dioxide Anion Gap BUN Creatinine Est GFR ( Amer) Est GFR (Non-Af Amer) POC Glucose (mg/dL) 187 H 93 Random Glucose Hemoglobin A1c Calcium Total Bilirubin AST ALT Alkaline Phosphatase Total Protein Albumin Globulin Albumin/Globulin Ratio 02/21/17 02/21/17 02/21/17 07:29 07:29 08:19 WBC RBC Hgb Hct MCV MCH MCHC RDW Plt Count MPV Neut % (Auto) Lymph % (Auto) Gaston % (Auto) Eos % (Auto) Baso % (Auto) Neut # Lymph # Gaston # Eos # Baso # Neutrophils % (Manual) Lymphocytes % (Manual) Monocytes % (Manual) Platelet Estimate Large Platelets Sodium 134 Potassium 3.7 Chloride 98 Carbon Dioxide 23 Anion Gap 16 BUN 9 Creatinine 0.3 L Est GFR ( Amer) > 60 Est GFR (Non-Af Amer) > 60 POC Glucose (mg/dL) 297 H Random Glucose 249 H Hemoglobin A1c 6.9 H Calcium 8.5 L Total Bilirubin 0.6 AST 18 ALT 26 Alkaline Phosphatase 147 H Total Protein 7.2 Albumin 3.7 Globulin 3.5 Albumin/Globulin Ratio 1.1 02/21/17 11:16 WBC RBC Hgb Hct MCV MCH MCHC RDW Plt Count MPV Neut % (Auto) Lymph % (Auto) Gaston % (Auto) Eos % (Auto) Baso % (Auto) Neut # Lymph # Gaston # Eos # Baso # Neutrophils % (Manual) Lymphocytes % (Manual) Monocytes % (Manual) Platelet Estimate Large Platelets Sodium Potassium Chloride Carbon Dioxide Anion Gap BUN Creatinine Est GFR ( Amer) Est GFR (Non-Af Amer) POC Glucose (mg/dL) 284 H Random Glucose Hemoglobin A1c Calcium Total Bilirubin AST ALT Alkaline Phosphatase Total Protein Albumin Globulin Albumin/Globulin Ratio
[2017-02-21] MEDS: Clotrimazole 1% Cream(30 gm) TOP SCH (17:20)
--- NOTE | 2017-02-21 23:15 | CON ---
INFECTIOUS DISEASE CONSULTATION REQUESTED BY: Campbell Springer MD HISTORY OF PRESENT ILLNESS: This patient was admitted for UTI and lower extremity edema. The patient is a 32-year-old male who has history of autism and severe psoriasis, asthma, hypertension, diabetes mellitus, chronic UTI, nephrolithiasis, and rheumatoid arthritis. He is taking care of by his mom and dad and was brought in here with increasing redness and swelling of the left leg and also with a dark urine. The patient has not been ambulatory and they said the swelling started 3 weeks ago and is getting worse. He is seen by the primary and he prescribed some steroids and also patient has been bed bound. Initially, he used to take Enbrel, but Enbrel used to bring in infections because of the urine and the stones and so, the patient has been off it and now he keeps it bent at 90 degrees and cannot extend it due to pain. The patient also has difficult to examine. There is no history of any fever or vomiting or diarrhea. They were giving Levaquin as outpatient and the mother said sometimes he takes it and has no problem, sometimes he develop rash, so I am not sure if he is allergic to other medications as written. HE IS ALLERGIC TO CIPRO, ZOSYN AND HE HAD A RASH TO TYGACIL YESTERDAY. I took the liberty to start him on Merrem, meropenem, and he tolerated it well and he is getting it at this time. PAST MEDICAL HISTORY: Significant for autism, asthma, nephrolithiasis, hypertension, diabetes mellitus, chronic UTI, psoriasis, and rheumatoid arthritis. PAST SURGICAL HISTORY: Circumcision in 2014 for chronic UTI. He also runs like high white count last time and his white count went up to 38,000. FAMILY HISTORY: Significant for aunt having breast cancer and a grandpa has diabetes, hypertension, and [place]. SOCIAL HISTORY: Negative for smoking or drinking or drug abuse. He lives with his parents. ALLERGIES: He is allergic to many drugs as reported here as above. REVIEW OF SYSTEMS: He is nonverbal, but he is not in any respiratory distress at this time. Past medical history is significant as above and has a history of asthma, high cholesterol, and he has autism from and chronic kidney disease, kidney stones, diabetes type 1, psoriasis, rheumatoid arthritis, gastroesophageal reflux disease, UTIs, and had circumcision in 04/2014. ALLERGIES ARE REPORTED TO CIPRO SEVERE URTICARIA AND TO ZOSYN, TRIMETHOPRIM, AND PENICILLIN. So, it becomes very difficult to give him medication, but I am not sure if these are true allergies as the patient already suffers from rash and psoriatic plaques all over. PHYSICAL EXAMINATION: VITAL SIGNS: I find his temperature when he came in the ER. HEENT: He is opening his eyes, eye movements are unremarkable. He has plaques on his scalp. Tongue is moist. NECK: Supple. JVP is flat. LUNGS: Clear. No crackles or rales heard at this time, but breath sounds are decreased. HEART: S1 and S2 is regular. No murmurs appreciated. ABDOMEN: Soft. Nontender. No guarding. No rigidity present. EXTREMITIES: The left leg is totally contracted at 90 degrees at the left knee and the foot is swollen and he has looks like fungal infection and distended to tight and decreased range of movement because of contractures. The right leg is also contracted at 45 degrees from the knee. He has psoriatic scars, more on the legs than hands. Left foot appears red with redness and swelling, but warmth has decreased now and has psoriatic plaques all over his body. MEDICATIONS: He is on Ventolin, Norvasc, Bentyl, Benadryl, Pepcid, Feosol, heparin subcu, on hydrocortisone cream, Novolin R, Cozaar, Vistaril, meropenem. He is on Singulair and he is also getting some IV fluids. LABORATORY AND DIAGNOSTIC DATA: He came with a white count of 20.2, hemoglobin 11.2, hematocrit 35.9, platelet count is 662. Sodium 134, potassium 3.5, chloride 98, CO2 is 27, BUN is 9, creatinine 0.3, and glucose was 134. Labs today was 17.7, hemoglobin 11.7, hematocrit 37.2. Micro haynes, urine culture is negative. Sodium is 134, potassium 3.7, chloride is 98, CO2 is 23, anion gap is 16, BUN is 9, creatinine 0.3. UA shows wbc is 24, rbc 128 and micro haynes, the urine culture remains negative at this time. He had a chest x-ray and the chest x-ray shows mild diffuse increase interstitial lung markings suggestive of mild venous congestion, right hilar prominence, biapical pleural thickening with upper lobe granulomatous changes, which also nothing acute going on and afoot x-ray was done, which shows there is joint space narrowing of MTP and PIP. There is no obvious erosive changes. There is osteopenia. ASSESSMENT AND PLAN: The patient is bed bound and has psoriasis and psoriatic scabs, may probably a psoriatic arthritis. He has developed contractures slightly worse in the left leg than the right and has now dependent edema and cellulitis and his white count was elevated. We started Merrem at this time. We will try to give him for few days and see how he responds to it. Urine culture is already negative in spite of having pyuria and he is on a cream for the psoriasis. We will order some Lotrimin cream between the interdigital clefts and to repeat the CBC tomorrow. We will follow. Awilda Cazares MD
[2017-02-22] MEDS: Sodium Chloride 0.9% 1,000 ML IV SCH (03:45)
[2017-02-22] MEDS: Albuterol HFA 90 mcg/actuation (8 g) IH SCH ×2 (07:41→20:14)
[2017-02-22] MEDS: (Novolin R) Insulin Human Regular 100 units/ml vial SC SCH ×4 (07:43→21:54)
[2017-02-22 07:49] LABS: BASO # 0.1 K/uL (0.0-0.2); BASO % 0.3 % (0.0-2.0); EOS % 0.1 % (0.0-4.0); HEMATOCRIT 35.9 % (35.0-51.0); LYMPH # 2.2 K/uL (1.0-4.3); LYMPH % 11.6 % (20.0-40.0); MEAN CELL VOLUME 77.7 fL (80.0-94.0); MONO # 1.3 K/uL (0.0-0.8); MONO % 6.7 % (0.0-10.0); RED CELL DISTRIBUTION WIDTH 19.7 % (11.5-14.5); WHITE BLOOD COUNT 19.1 K/uL (4.8-10.8)
[2017-02-22 08:23] LABS: ALB/GLOB RATIO 0.8 (1.0-2.1); ALKALINE PHOSPHATASE 120 U/L (38-126); ALT/SGPT 34 U/L (21-72); AST/SGOT 19 U/L (17-59); BILIRUBIN,TOTAL 0.3 mg/dL (0.2-1.3); BLOOD UREA NITROGEN 7 mg/dL (9-20); CALCIUM 8.1 mg/dl (8.6-10.4); CARBON DIOXIDE 25 mmol/L (22-30); CHLORIDE 101 mmol/L (98-107); GFR AFRICAN-AMERICAN > 60; GLUCOSE,RANDOM 99 mg/dL (75-110); POTASSIUM 3.3 mmol/L (3.6-5.2); SODIUM 136 mmol/L (132-148); TOTAL PROTEIN 7.5 g/dL (6.3-8.3)
--- NOTE | 2017-02-22 09:23 | CP.PCM.PN ---
<Stephani Alcaraz - Last Filed: 02/22/17 12:09> Subjective - Date & Time of Evaluation Date of Evaluation: 02/22/17 Time of Evaluation: 09:23 - Subjective Subjective: Patient was seen and examined at bedside with mother in room. As per the father , patient was itchy overnight and needed more frequent dosing of Benadryl. Otherwise, Patient had no other events overnight. Mother reports the patient still has a cough. ROS not obtained as patient is nonverbal. Objective - Vital Signs/Intake and Output Vital Signs (last 24 hours): Temp Pulse Resp BP Pulse Ox 97.8 F 97 H 20 129/81 96 02/22/17 07:44 02/22/17 07:44 02/22/17 07:44 02/22/17 07:44 02/22/17 07:44 - Medications Medications: Current Medications Albuterol (Ventolin Hfa 90 Mcg/Actuation (8 G)) 1 puff IH RBID [facility] Last Admin: 02/22/17 07:41 Dose: Not Given Amlodipine Besylate (Norvasc) 5 mg PO BID [facility] Last Admin: 02/21/17 17:18 Dose: 5 mg Clotrimazole (Lotrimin 1%) 0 gm TOP BID [facility] Last Admin: 02/21/17 17:20 Dose: 1 applic Dicyclomine HCl (Bentyl) 20 mg PO BID [facility] Last Admin: 02/21/17 17:18 Dose: 20 mg Diphenhydramine HCl (Benadryl) 25 mg PO Q6H PRN PRN Reason: Itching,IF NO RELIEF W/ CREAM Last Admin: 02/22/17 05:07 Dose: 25 mg Famotidine (Pepcid) 20 mg PO BID [facility] Last Admin: 02/21/17 17:18 Dose: 20 mg Ferrous Sulfate (Feosol) 325 mg PO BID [facility] Last Admin: 02/21/17 17:18 Dose: 325 mg Heparin Sodium (Porcine) (Heparin) 5,000 units SC Q8 [facility] Last Admin: 02/22/17 05:07 Dose: 5,000 units Hydrocortisone (Cortizone 1% Cream) 1 gm TOP BID PRN PRN Reason: Itching / Pruritus Last Admin: 02/21/17 13:19 Dose: 1 applic Sodium Chloride (Sodium Chloride 0.9%) 1,000 mls @ 100 mls/hr IV .Q10H [facility] Last Admin: 02/22/17 03:45 Dose: 100 mls/hr Meropenem 1 gm/ Sodium (Chloride) 50 mls @ 100 mls/hr IVPB Q8 [facility] Last Admin: 02/22/17 05:07 Dose: 100 mls/hr Insulin Human Regular (Novolin R) 0 unit SC ACHS [facility] PRN Reason: Protocol Last Admin: 02/22/17 07:43 Dose: Not Given Losartan Potassium (Cozaar) 100 mg PO DAILY [facility] Last Admin: 02/21/17 11:38 Dose: 100 mg Montelukast Sodium (Singulair) 10 mg PO HS [facility] Last Admin: 02/21/17 21:24 Dose: 10 mg - Labs Labs: 02/22/17 07:17 02/22/17 07:17 - Additional Findings Additional findings: - Head Exam Head Exam: NORMOCEPHALIC Additional comments: Psoriatic lesions/plaques on scalp - Eye Exam Eye Exam: EOMI, Normal appearance - ENT Exam ENT Exam: Mucous Membranes Moist - Respiratory Exam Respiratory Exam: Decreased Breath Sounds (patient not cooperative with exam), Clear to Auscultation Bilateral, NORMAL BREATHING PATTERN. absent: Rhonchi, Wheezes, Respiratory Distress - Cardiovascular Exam Cardiovascular Exam: REGULAR RHYTHM, +S1, +S2 - GI/Abdominal Exam GI & Abdominal Exam: Normal Bowel Sounds, Soft. absent: Distended, Firm, Guarding, Mass - Extremities Exam Extremities exam: Positive for: joint swelling (Left knee, ankle foot- swelling , erythematous, tender to palpation, decreased ROM (pt keeps leg flexed at 90deg and cannot extend 2/2 pain), pedal edema. Negative for: normal inspection - Neurological Exam Neurological exam: Alert, Altered - Psychiatric Exam Additional comments: Patient has history of autism. - Skin Additional comments: Left foot/ankle- erythematous, swelling noted; tender to palpation Psoriatic lesions/plaques throughout entire body. Assessment and Plan (1) Cellulitis of left leg Status: Acute (2) Urinary tract infection Status: Acute (3) Leukocytosis Status: Acute (4) HTN (hypertension) Status: Acute (5) Abnormal bowel movement Status: Acute (6) Rheumatoid arthritis Status: Chronic (7) Autism disorder Status: Chronic (8) Psoriasis Status: Chronic (9) Diabetes mellitus Status: Chronic (10) Prophylactic measure Status: Acute - Assessment and Plan (Free Text) Plan: Assessment & Plan (1) Cellulitis of left leg Assessment and Plan: Foot xray: joint space narrowing of MTP & PIP joints; no bony or erosive changes ; there is osteopenia. Possibly secondary to infection, psoriasis, or RA. Blood cx: no growth after 24hours ID consulted, Dr. Cazares, help appreciated. Podiatry consulted for nail clipping Wound care consulted Status: Acute (2) Urinary tract infection Assessment and Plan: Patient has a history of chronic UTIs; Patient has a circumcision in 2014 for chronic UTIs. Leukocytosis likely secondary to UTI. UA: 2+ protein, 3+ blood, 2+ LE, 24WBC, 128 RBCs, 3-5 hyaline casts. Urine cx: no growth Blood cx: no growth after 24hours In ED, patient was given one dose of Tigecycline. Patient has multiple drug allergies, and a history of multiresistant UTIs. ID consulted, Dr. Cazares, help appreciated. Antibiotics will be started as per ID. * Started Meropenem 1gm IVPB Q8h 02/20 Status: Acute (3) Leukocytosis Assessment and Plan: Likely secondary to UTI WBC 20.2 at admission 02/22: 19.1 02/21: 17.7, Improving, trending down Afebrile Patient received one dose of Tigecycline in ED. ID consulted, Dr. Cazares, help appreciated Antibiotics will be started as per ID. * Started Meropenem 1gm IVPB Q8h 02/20 Blood cx: no growth after 24hours Urine cx: no growth Status: Acute (4) HTN (hypertension) Assessment and Plan: Continue home medications. Monitor vitals. Status: Acute (5) Abnormal bowel movement Assessment and Plan: C.Diff: f/u results Stool cx: f/u results Ova&parasites: f/u results Stool leukocytes: f/u results Status: Acute (6) Rheumatoid arthritis Assessment and Plan: Left LE swelling and erythema, possibly secondary to rheumatoid arthritis Status: Chronic (7) Autism disorder Assessment and Plan: Parents, Darrell and Gerardo, have requested patient has private room. Parents report they will be with patient 24/10, as patient needs constant assistance. Status: Chronic (8) Psoriasis Assessment and Plan: Left LE swelling and erythema, likely secondary to cellulitis, but may be secondary to psorasis Hydrocortisone 1% topically as needed Wound care consulted Status: Chronic (9) Diabetes mellitus Assessment and Plan: Home medication, Metformin, held. ISS Accuchecks Monitor daily blood glucose A1c: 6.9 Status: Chronic (10) Cough Assessment and Plan: Chest xray: mild venous congestion; right hilar prominence; biapical thickening with upper lobe granulomatous changes; cardiomegaly. (11) Prophylactic measure Assessment and Plan: C/I SCDs 2/2 LE swelling and pain Pepcid 20mg PO BID Heparin 5,000 SC Q8h Consistent low carb heart healthy diet PT/OT Case discussed with Mother and Case management: no gear and spline grinder available at [facility]; was advised to seek outpatient gear and spline grinder care. Also discussed transferring patient to rehabilitation for rheumatoid arthritis and psoriasis as patient is bed bound and requires PT/OT. Will follow up. <Doc Springer - Last Filed: 02/24/17 18:03> Objective - Vital Signs/Intake and Output Vital Signs (last 24 hours): Temp Pulse Resp BP Pulse Ox 97.3 F L 117 H 19 127/78 97 02/24/17 16:29 02/24/17 16:29 02/24/17 16:29 02/24/17 16:29 02/24/17 16:29 Intake and Output: 02/24/17 02/24/17 06:59 18:59 Intake Total 980 Balance 980 - Medications Medications: Current Medications Albuterol (Ventolin Hfa 90 Mcg/Actuation (8 G)) 1 puff IH RBID [facility] Last Admin: 02/24/17 07:51 Dose: Not Given Amlodipine Besylate (Norvasc) 5 mg PO BID [facility] Last Admin: 02/24/17 17:23 Dose: 5 mg Clobetasol Propionate (Temovate 0.05% Ointment) 1 applic TOP BID [facility] Last Admin: 02/24/17 17:25 Dose: 1 applic Clotrimazole (Lotrimin 1%) 0 gm TOP BID [facility] Last Admin: 02/24/17 17:24 Dose: 1 applic Dicyclomine HCl (Bentyl) 20 mg PO BID [facility] Last Admin: 02/24/17 17:23 Dose: 20 mg Diphenhydramine HCl (Benadryl) 25 mg PO Q6H PRN PRN Reason: Itching,IF NO RELIEF W/ CREAM Last Admin: 02/23/17 10:04 Dose: 25 mg Famotidine (Pepcid) 20 mg PO BID [facility] Last Admin: 02/24/17 17:23 Dose: 20 mg Ferrous Sulfate (Feosol) 325 mg PO BID [facility] Last Admin: 02/24/17 17:23 Dose: 325 mg Heparin Sodium (Porcine) (Heparin) 5,000 units SC Q8 [facility] Last Admin: 02/24/17 13:09 Dose: 5,000 units Hydrocortisone (Cortizone 1% Cream) 1 gm TOP BID PRN PRN Reason: Itching / Pruritus Last Admin: 02/24/17 17:24 Dose: 1 applic Sodium Chloride (Sodium Chloride 0.45%) 1,000 mls @ 100 mls/hr IV .Q10H [facility] Last Admin: 02/24/17 14:24 Dose: 100 mls/hr Insulin Human Regular (Novolin R) 0 unit SC ACHS [facility] PRN Reason: Protocol Last Admin: 02/24/17 16:44 Dose: Not Given Losartan Potassium (Cozaar) 100 mg PO DAILY [facility] Last Admin: 02/24/17 09:53 Dose: 100 mg Montelukast Sodium (Singulair) 10 mg PO HS [facility] Last Admin: 02/23/17 22:08 Dose: 10 mg Saccharomyces Boulardii (Florastor) 250 mg PO DAILY [facility] Last Admin: 02/24/17 09:52 Dose: 250 mg - Labs Labs: 02/24/17 07:59 02/24/17 07:59 Attending/Attestation - Attestation I have personally seen and examined this patient.: Yes I have fully participated in the care of the patient.: Yes I have reviewed all pertinent clinical information, including history, physical exam and plan: Yes Notes (Text): patient was seen and examined' d/w the residnet and I agree with the resident's documentation
[2017-02-22] MEDS: Clotrimazole 1% Cream(30 gm) TOP SCH ×2 (10:40→18:00)
--- NOTE | 2017-02-22 13:36 | CP.PCM.CON ---
History of Present Illness - History of Present Illness History of Present Illness: Podiatry Consult Note- Dr. Taylor This is a 32 yo male patient seen at bedside this morning for request from primary team for nail consult. Pt recently admitted for UTI and b/l lower extremity pain/swelling. Mother present at bedside. She says that patients left leg is quite tender to touch. Says that he uses a cream for the psoriasis. Pt is awake and alert but is non-verbal. Mother denies any other problems today. PMH: psoriasis, austism, HTN, UTI's, rheumatoid arthritis Review of Systems - Review of Systems Review of Systems: all systems reviewed and negative outside HPI Past Patient History - Infectious Disease Hx of Infectious Diseases: None - Past Medical History & Family History Past Medical History?: Yes - Past Social History Smoking Status: Never Smoked - CARDIAC Hx Hypercholesterolemia: Yes Hx Hypertension: Yes - PULMONARY Hx Asthma: Yes - NEUROLOGICAL Hx Neurological Disorder: Yes Other/Comment: autism - HEENT Hx HEENT Problems: No - RENAL Hx Chronic Kidney Disease: Yes Hx Kidney Stones: Yes - ENDOCRINE/METABOLIC Hx Endocrine Disorders: Yes Hx Diabetes Mellitus Type 1: Yes Hx Diabetes Mellitus Type 2: Yes - HEMATOLOGICAL/ONCOLOGICAL Hx Anemia: Yes - INTEGUMENTARY Hx Dermatological Problems: Yes Hx Psoriasis: Yes - MUSCULOSKELETAL/RHEUMATOLOGICAL Hx Arthritis: Yes Hx Falls: No Hx Rheumatoid Arthritis: Yes - GASTROINTESTINAL Hx Gastrointestinal Disorders: Yes Hx Gastroesophageal Reflux: Yes - GENITOURINARY/GYNECOLOGICAL Hx Genitourinary Disorders: Yes Hx Urinary Tract Infection: Yes - PSYCHIATRIC Hx Anxiety: Yes Hx Substance Use: No - SURGICAL HISTORY Hx Surgeries: Yes Other/Comment: H/O Venous catheterization,Circumcision last Apr 2014 - ANESTHESIA Hx Anesthesia: Yes Hx Anesthesia Reactions: No Hx Malignant Hyperthermia: No Meds Allergies/Adverse Reactions: Allergies Allergy/AdvReac Type Severity Reaction Status Date / Time ciprofloxacin [From Cipro] Allergy Severe URTICARIA Verified 07/10/16 13:53 ciprofloxacin HCl Allergy Severe URTICARIA Verified 07/10/16 13:53 [From Cipro] piperacillin sodium Allergy Severe URTICARIA Verified 07/10/16 13:53 [From Zosyn] sulfamethoxazole Allergy Severe URTICARIA Verified 07/10/16 13:53 [From Bactrim] tazobactam sodium Allergy Severe URTICARIA Verified 07/10/16 13:53 [From Zosyn] tetracycline Allergy Severe URTICARIA Verified 07/10/16 13:53 trimethoprim [From Bactrim] Allergy Severe URTICARIA Verified 07/10/16 13:53 Penicillins Allergy URTICARIA Verified 07/10/16 13:53 - Medications Medications: Current Medications Albuterol (Ventolin Hfa 90 Mcg/Actuation (8 G)) 1 puff IH RBID [facility] Last Admin: 02/22/17 07:41 Dose: Not Given Amlodipine Besylate (Norvasc) 5 mg PO BID [facility] Last Admin: 02/22/17 10:40 Dose: 5 mg Clotrimazole (Lotrimin 1%) 0 gm TOP BID [facility] Last Admin: 02/21/17 17:20 Dose: 1 applic Dicyclomine HCl (Bentyl) 20 mg PO BID [facility] Last Admin: 02/22/17 10:40 Dose: 20 mg Diphenhydramine HCl (Benadryl) 25 mg PO Q6H PRN PRN Reason: Itching,IF NO RELIEF W/ CREAM Last Admin: 02/22/17 11:23 Dose: 25 mg Famotidine (Pepcid) 20 mg PO BID [facility] Last Admin: 02/22/17 10:40 Dose: 20 mg Ferrous Sulfate (Feosol) 325 mg PO BID [facility] Last Admin: 02/22/17 10:40 Dose: 325 mg Heparin Sodium (Porcine) (Heparin) 5,000 units SC Q8 [facility] Last Admin: 02/22/17 05:07 Dose: 5,000 units Hydrocortisone (Cortizone 1% Cream) 1 gm TOP BID PRN PRN Reason: Itching / Pruritus Last Admin: 02/21/17 13:19 Dose: 1 applic Meropenem 1 gm/ Sodium (Chloride) 50 mls @ 100 mls/hr IVPB Q8 [facility] Last Admin: 02/22/17 05:07 Dose: 100 mls/hr Potassium Chloride (Potassium Chloride 20 Meq/100 Ml) 20 meq in 100 mls @ 50 mls/hr IVPB ONCE ONE Stop: 02/22/17 14:28 Last Admin: 02/22/17 12:42 Dose: 50 mls/hr Insulin Human Regular (Novolin R) 0 unit SC ACHS [facility] PRN Reason: Protocol Last Admin: 02/22/17 12:40 Dose: 1 unit Losartan Potassium (Cozaar) 100 mg PO DAILY [facility] Last Admin: 02/22/17 10:40 Dose: 100 mg Montelukast Sodium (Singulair) 10 mg PO HS [facility] Last Admin: 02/21/17 21:24 Dose: 10 mg Physical Exam - Constitutional Appears: Non-toxic, No Acute Distress - Extremities Exam Additional comments: BL lower ext exam: VASC- DP/PT pulses palpable bl, skin temp runs warm to warm bl, cft<3 sec to all digits, no pedal edema NEURO- protective pedal sensation is intact bl DERM- erythema noted circumferentially to b/l legs and dorsum of feet, neg calor , scaling of plantar feet and toes noted bl, no open wounds, toenails dystrophic and elongated x 10 with lysis of left 5th toenail noted ORTHO- diffuse tenderness to palp of left leg circumferentially, neg tenderness on palp of bl feet, pt is noted to be contracted of bl lower extremities with decreased muscle tone noted - Psychiatric Exam Additional comments: unable to assess Results - Vital Signs Recent Vital Signs: Last Vital Signs Temp 97.8 F 02/22/17 07:44 Pulse 97 H 02/22/17 07:44 Resp 20 02/22/17 07:44 BP 129/81 02/22/17 07:44 Pulse Ox 96 02/22/17 07:44 - Labs Result Diagrams: 02/22/17 07:17 02/22/17 07:17 Labs: Laboratory Results - last 24 hr 02/21/17 02/21/17 02/22/17 17:16 20:59 06:43 WBC RBC Hgb Hct MCV MCH MCHC RDW Plt Count MPV Neut % (Auto) Lymph % (Auto) [place] % (Auto) Eos % (Auto) Baso % (Auto) Neut # Lymph # [place] # Eos # Baso # Sodium Potassium Chloride Carbon Dioxide Anion Gap BUN Creatinine Est GFR ( Amer) Est GFR (Non-Af Amer) POC Glucose (mg/dL) 184 H 173 H 111 H Random Glucose Calcium Total Bilirubin AST ALT Alkaline Phosphatase Total Protein Albumin Globulin Albumin/Globulin Ratio 02/22/17 02/22/17 02/22/17 07:17 07:17 11:06 WBC 19.1 H RBC 4.62 Hgb 11.1 L Hct 35.9 MCV 77.7 L MCH 24.0 L MCHC 31.0 L RDW 19.7 H Plt Count 689 H MPV 7.0 L Neut % (Auto) 81.3 H Lymph % (Auto) 11.6 L [place] % (Auto) 6.7 Eos % (Auto) 0.1 Baso % (Auto) 0.3 Neut # 15.5 H Lymph # 2.2 [place] # 1.3 H Eos # 0.0 Baso # 0.1 Sodium 136 Potassium 3.3 L Chloride 101 Carbon Dioxide 25 Anion Gap 14 BUN 7 L Creatinine 0.3 L Est GFR ( Amer) > 60 Est GFR (Non-Af Amer) > 60 POC Glucose (mg/dL) 190 H Random Glucose 99 Calcium 8.1 L Total Bilirubin 0.3 AST 19 ALT 34 Alkaline Phosphatase 120 Total Protein 7.5 Albumin 3.3 L Globulin 4.1 H Albumin/Globulin Ratio 0.8 L Assessment & Plan - Assessment and Plan (Free Text) Assessment: 32 yo male patient admitted for UTI and B/L lower ext cellultis seen for elongated toenails Plan: Pt S&E at bedside Plan discussed with attending Dr. Taylor Chart and vitals reviewed Toenails aseptically debrided x 10. Pt tolerated procedure well without incident. May follow up as outpatient with Dr. Taylor for foot care ID on case for lower extremity cellulitis Podiatry to sign off at this time, please re-consult as needed thank you for this consult.
[2017-02-22] MEDS ORDERED: Potassium Chloride 20 mEq ER Tab PO ONE (14:30)
[2017-02-22] MEDS: Hydrocortisone 1% Cream (30 GM) TOP PRN (17:36)
[2017-02-22] MEDS ORDERED: Aluminum Hydroxide/Magnesium Hydroxide Susp (30 mL) PO ONE (19:20)
[2017-02-22] MEDS: Linezolid 600 mg in D5W 300 ml 600 MG/300 ML BAG IVPB SCH (21:40)
--- NOTE | 2017-02-22 21:40 | CP.PCM.PN ---
Subjective - Date & Time of Evaluation Date of Evaluation: 02/22/17 Time of Evaluation: 02:40 - Subjective Subjective: dictated Objective - Vital Signs/Intake and Output Vital Signs (last 24 hours): Temp Pulse Resp BP Pulse Ox 97.9 F 124 H 20 150/90 99 02/22/17 16:22 02/22/17 16:22 02/22/17 16:22 02/22/17 16:22 02/22/17 16:22 Intake and Output: 02/22/17 02/23/17 18:59 06:59 Intake Total 600 240 Balance 600 240 - Medications Medications: Current Medications Albuterol (Ventolin Hfa 90 Mcg/Actuation (8 G)) 1 puff IH RBID [facility] Last Admin: 02/22/17 20:14 Dose: Not Given Amlodipine Besylate (Norvasc) 5 mg PO BID [facility] Last Admin: 02/22/17 17:36 Dose: 5 mg Clotrimazole (Lotrimin 1%) 0 gm TOP BID [facility] Last Admin: 02/22/17 18:00 Dose: 1 applic Dicyclomine HCl (Bentyl) 20 mg PO BID [facility] Last Admin: 02/22/17 17:37 Dose: 20 mg Diphenhydramine HCl (Benadryl) 25 mg PO Q6H PRN PRN Reason: Itching,IF NO RELIEF W/ CREAM Last Admin: 02/22/17 17:35 Dose: 25 mg Famotidine (Pepcid) 20 mg PO BID [facility] Last Admin: 02/22/17 17:35 Dose: 20 mg Ferrous Sulfate (Feosol) 325 mg PO BID [facility] Last Admin: 02/22/17 17:36 Dose: 325 mg Heparin Sodium (Porcine) (Heparin) 5,000 units SC Q8 [facility] Last Admin: 02/22/17 14:59 Dose: 5,000 units Hydrocortisone (Cortizone 1% Cream) 1 gm TOP BID PRN PRN Reason: Itching / Pruritus Last Admin: 02/22/17 17:36 Dose: 1 applic Linezolid (Zyvox 600mg/300ml D5w) 600 mg in 300 mls @ 200 mls/hr IVPB Q12 [facility] Insulin Human Regular (Novolin R) 0 unit SC ACHS [facility] PRN Reason: Protocol Last Admin: 02/22/17 16:59 Dose: 1 unit Losartan Potassium (Cozaar) 100 mg PO DAILY [facility] Last Admin: 02/22/17 10:40 Dose: 100 mg Montelukast Sodium (Singulair) 10 mg PO [facility] Last Admin: 02/21/17 21:24 Dose: 10 mg - Labs Labs: 02/22/17 07:17 02/22/17 07:17
--- NOTE | 2017-02-23 00:41 | PN ---
DATE: SUBJECTIVE: Tatiana was seen around 2:40 today. He is with autism and does not communicate; however, he was being cleaned by his parents and was found to have localized lot of redness allover his body, and the mother said that it was related to the antibiotic meropenem; hence, he was not having any shortness of breath, but father said he was coughing, so I decided to give a steroid shot at that time, and I discontinued meropenem. PHYSICAL EXAMINATION: GENERAL: He looked red allover, beefy red. HEENT: Head is atraumatic. NECK: Supple. SKIN: He does also have psoriasis, and with warm water which they were cleaning with, his skin almost looked red allover. LUNGS: Clear however. HEART: S1 and S2 is regular. ABDOMEN: Soft, nontender. EXTREMITIES: Both lower extremities are contracted, left more than right. Also, he has psoriatic patches on foot. LABORATORY DATA: His white count remains elevated. White count is 19.1, hemoglobin 11.7, hematocrit 35.9, and platelet count is 689. His potassium is 3.3, BUN is 7, and creatinine 0.3. MEDICATIONS: I switched him over to Zyvox, and the nurse was kind enough to take a verbal order, and I need to sign it now. So he is on Zyvox now, and we will follow. ASSESSMENT AND PLAN: He remains with his contractures and in poor shape. We will repeat the labs in a day or so, and we will continue the treatment. Awilda Cazares MD
[2017-02-23] MEDS: (Novolin R) Insulin Human Regular 100 units/ml vial SC SCH ×4 (07:22→21:52)
[2017-02-23 07:33] LABS: BASO # 0.1 K/uL (0.0-0.2); BASO % 0.6 % (0.0-2.0); EOS # 0.1 K/uL (0.0-0.7); EOS % 0.2 % (0.0-4.0); HEMATOCRIT 37.7 % (35.0-51.0); LYMPH # 2.2 K/uL (1.0-4.3); LYMPH % 9.8 % (20.0-40.0); MEAN CELL VOLUME 77.8 fL (80.0-94.0); MEAN CORPUSCULAR HEMOGLOBIN 24.8 pg (27.0-31.0); MEAN CORPUSCULAR HGB CONC 31.9 g/dL (33.0-37.0); MONO # 1.7 K/uL (0.0-0.8); MONO % 7.8 % (0.0-10.0); NRBC % 0.1 % (0.0-2.0); PLATELET COUNT 731 K/uL (130-400); RED CELL DISTRIBUTION WIDTH 19.6 % (11.5-14.5); WHITE BLOOD COUNT 22.2 K/uL (4.8-10.8)
[2017-02-23 08:17] LABS: ALB/GLOB RATIO 1.1 (1.0-2.1); ALKALINE PHOSPHATASE 166 U/L (38-126); ALT/SGPT 32 U/L (21-72); AST/SGOT 19 U/L (17-59); BILIRUBIN,TOTAL 0.6 mg/dL (0.2-1.3); BLOOD UREA NITROGEN 6 mg/dL (9-20); CALCIUM 8.7 mg/dl (8.6-10.4); CARBON DIOXIDE 29 mmol/L (22-30); CHLORIDE 97 mmol/L (98-107); GFR AFRICAN-AMERICAN > 60; GLUCOSE,RANDOM 93 mg/dL (75-110); SODIUM 133 mmol/L (132-148); TOTAL PROTEIN 7.1 g/dL (6.3-8.3)
[2017-02-23] MEDS: Clotrimazole 1% Cream(30 gm) TOP SCH ×2 (10:10→17:30)
[2017-02-23] MEDS: Linezolid 600 mg in D5W 300 ml 600 MG/300 ML BAG IVPB SCH ×2 (10:40→22:08)
[2017-02-23 11:12] LABS: MYELOCYTE 1 % (0-0); NEUTROPHIL 84 % (50-75); TOTAL CELLS COUNTED 100
[2017-02-23] MEDS: Hydrocortisone 1% Cream (30 GM) TOP PRN (17:29)
--- NOTE | 2017-02-23 19:58 | CP.PCM.PN ---
Subjective - Date & Time of Evaluation Date of Evaluation: 02/23/17 Time of Evaluation: 15:00 - Subjective Subjective: Seen and examined, d/w with his parents at bedside.He is eating pizza.Parents feed him. Has severe arthritis .Contracted knees for months,has arthric hands for years.Skin is thick leg cellulitis with little improvement Parents agreed for rehab. He was not able to follow [facility] due to transportation issues.He is bed bound and unable to bring him two floor down to get transport. [facility] visits him. Objective - Vital Signs/Intake and Output Vital Signs (last 24 hours): Temp Pulse Resp BP Pulse Ox 97.4 F L 111 H 20 138/86 96 02/23/17 15:16 02/23/17 15:16 02/23/17 15:16 02/23/17 15:16 02/23/17 15:16 Intake and Output: 02/23/17 02/24/17 18:59 06:59 Intake Total 820 Output Total 300 Balance 520 - Medications Medications: Current Medications Albuterol (Ventolin Hfa 90 Mcg/Actuation (8 G)) 1 puff IH RBID [facility] Last Admin: 02/22/17 20:14 Dose: Not Given Amlodipine Besylate (Norvasc) 5 mg PO BID [facility] Last Admin: 02/23/17 17:28 Dose: 5 mg Clotrimazole (Lotrimin 1%) 0 gm TOP BID [facility] Last Admin: 02/23/17 17:30 Dose: 1 applic Dicyclomine HCl (Bentyl) 20 mg PO BID [facility] Last Admin: 02/23/17 17:27 Dose: 20 mg Diphenhydramine HCl (Benadryl) 25 mg PO Q6H PRN PRN Reason: Itching,IF NO RELIEF W/ CREAM Last Admin: 02/23/17 10:04 Dose: 25 mg Famotidine (Pepcid) 20 mg PO BID [facility] Last Admin: 02/23/17 17:28 Dose: 20 mg Ferrous Sulfate (Feosol) 325 mg PO BID [facility] Last Admin: 02/23/17 17:28 Dose: 325 mg Heparin Sodium (Porcine) (Heparin) 5,000 units SC Q8 [facility] Last Admin: 02/23/17 13:39 Dose: 5,000 units Hydrocortisone (Cortizone 1% Cream) 1 gm TOP BID PRN PRN Reason: Itching / Pruritus Last Admin: 02/23/17 17:29 Dose: 1 applic Linezolid (Zyvox 600mg/300ml D5w) 600 mg in 300 mls @ 200 mls/hr IVPB Q12 [facility] Last Admin: 02/23/17 10:40 Dose: 200 mls/hr Insulin Human Regular (Novolin R) 0 unit SC ACHS [facility] PRN Reason: Protocol Last Admin: 02/23/17 16:32 Dose: 1 unit Losartan Potassium (Cozaar) 100 mg PO DAILY [facility] Last Admin: 02/23/17 10:04 Dose: 100 mg Montelukast Sodium (Singulair) 10 mg PO HS [facility] Last Admin: 02/22/17 21:55 Dose: Not Given Saccharomyces Boulardii (Florastor) 250 mg PO DAILY [facility] - Labs Labs: 02/23/17 07:25 02/23/17 07:25 - Constitutional Appears: Chronically Ill - Head Exam Head Exam: absent: NORMAL INSPECTION (scalp rash) - Eye Exam Eye Exam: Normal appearance - ENT Exam ENT Exam: Mucous Membranes Moist - Neck Exam Neck Exam: Full ROM - Respiratory Exam Respiratory Exam: Clear to Ausculation Bilateral, NORMAL BREATHING PATTERN - Cardiovascular Exam Cardiovascular Exam: REGULAR RHYTHM - GI/Abdominal Exam GI & Abdominal Exam: Soft, Normal Bowel Sounds - Extremities Exam Extremities Exam: Joint Swelling, Pedal Edema (cellulitis). absent: Full ROM, Tenderness - Back Exam Back Exam: absent: NORMAL INSPECTION (rash) - Neurological Exam Neurological Exam: Awake. absent: Oriented x3 - Psychiatric Exam Psychiatric exam: Flat Affect - Skin Skin Exam: Dry Assessment and Plan - Assessment and Plan (Free Text) Assessment: 1.Cellulitis and leukocytosis continue IV Zyvox and follow cbc topical steroid for rash d/w ID,We will change to oral if wbc improves 2.Contracted extremities PT and OT Rehab 3.Psoriatis arthritis Rheumatology follow up as an out pt 4.Diabetes mellitus d/w mother about his diet 5.HTN 6. C/I SCDs 2/2 LE swelling and pain Pepcid 20mg PO BID Heparin 5,000 SC Q8h Case discussed with Mother and Case management: no wellness ambassador available at [facility]; was advised to seek outpatient wellness ambassador care. Also discussed transferring patient to rehabilitation patient is bed bound and requires PT/OT to avoid further contraction
[2017-02-23] MEDS: Saccharomyces Boulardi 250 mg Cap PO SCH (22:15)
--- NOTE | 2017-02-24 07:19 | CP.PCM.PN ---
<Stephani Alcaraz - Last Filed: 02/24/17 13:26> Subjective - Date & Time of Evaluation Date of Evaluation: 02/24/17 Time of Evaluation: 07:18 - Subjective Subjective: Medicine progress note for Dr. Springer Patient was seen and examined at bedside with mother in room. As per mother and night float resident, patient had 3 episodes of diarrhea but has not had any episodes today. Otherwise, Patient had no other events overnight. ROS not obtained as patient is nonverbal. Objective - Vital Signs/Intake and Output Vital Signs (last 24 hours): Temp Pulse Resp BP Pulse Ox 97.5 F L 118 H 20 143/76 97 02/24/17 00:18 02/24/17 00:18 02/24/17 00:18 02/24/17 00:18 02/24/17 00:18 - Medications Medications: Current Medications Albuterol (Ventolin Hfa 90 Mcg/Actuation (8 G)) 1 puff IH RBID [facility] Last Admin: 02/22/17 20:14 Dose: Not Given Amlodipine Besylate (Norvasc) 5 mg PO BID [facility] Last Admin: 02/23/17 17:28 Dose: 5 mg Clotrimazole (Lotrimin 1%) 0 gm TOP BID [facility] Last Admin: 02/23/17 17:30 Dose: 1 applic Dicyclomine HCl (Bentyl) 20 mg PO BID [facility] Last Admin: 02/23/17 17:27 Dose: 20 mg Diphenhydramine HCl (Benadryl) 25 mg PO Q6H PRN PRN Reason: Itching,IF NO RELIEF W/ CREAM Last Admin: 02/23/17 10:04 Dose: 25 mg Famotidine (Pepcid) 20 mg PO BID [facility] Last Admin: 02/23/17 17:28 Dose: 20 mg Ferrous Sulfate (Feosol) 325 mg PO BID [facility] Last Admin: 02/23/17 17:28 Dose: 325 mg Heparin Sodium (Porcine) (Heparin) 5,000 units SC Q8 [facility] Last Admin: 02/24/17 06:02 Dose: 5,000 units Hydrocortisone (Cortizone 1% Cream) 1 gm TOP BID PRN PRN Reason: Itching / Pruritus Last Admin: 02/23/17 17:29 Dose: 1 applic Linezolid (Zyvox 600mg/300ml D5w) 600 mg in 300 mls @ 200 mls/hr IVPB Q12 [facility] Last Admin: 02/23/17 22:08 Dose: 200 mls/hr Insulin Human Regular (Novolin R) 0 unit SC ACHS [facility] PRN Reason: Protocol Last Admin: 02/23/17 21:52 Dose: Not Given Losartan Potassium (Cozaar) 100 mg PO DAILY [facility] Last Admin: 02/23/17 10:04 Dose: 100 mg Montelukast Sodium (Singulair) 10 mg PO HS [facility] Last Admin: 02/23/17 22:08 Dose: 10 mg Saccharomyces Boulardii (Florastor) 250 mg PO DAILY [facility] Last Admin: 02/23/17 22:15 Dose: 250 mg - Labs Labs: 02/23/17 07:25 02/23/17 07:25 - Additional Findings Additional findings: - Head Exam Head Exam: NORMOCEPHALIC Additional comments: Psoriatic lesions/plaques on scalp - Eye Exam Eye Exam: EOMI, Normal appearance - ENT Exam ENT Exam: Mucous Membranes Moist - Respiratory Exam Respiratory Exam: Decreased Breath Sounds (patient not cooperative with exam), Clear to Auscultation Bilateral, NORMAL BREATHING PATTERN. absent: Rhonchi, Wheezes, Respiratory Distress - Cardiovascular Exam Cardiovascular Exam: REGULAR RHYTHM, +S1, +S2 - GI/Abdominal Exam GI & Abdominal Exam: Normal Bowel Sounds, Soft. absent: Distended, Firm, Guarding, Mass - Extremities Exam Extremities exam: Positive for: joint swelling (Left knee, ankle foot- swelling , erythematous, tender to palpation, decreased ROM (pt keeps leg flexed at 90deg and cannot extend 2/2 pain), pedal edema. Negative for: normal inspection - Neurological Exam Neurological exam: Alert, Altered - Psychiatric Exam Additional comments: Patient has history of autism. - Skin Additional comments: Left foot/ankle- erythematous, swelling noted; tender to palpation Psoriatic lesions/plaques throughout entire body. Assessment and Plan (1) Cellulitis of left leg Status: Acute (2) Urinary tract infection Status: Acute (3) Leukocytosis Status: Acute (4) HTN (hypertension) Status: Acute (5) Abnormal bowel movement Status: Acute (6) Rheumatoid arthritis Status: Chronic (7) Autism disorder Status: Chronic (8) Psoriasis Status: Chronic (9) Diabetes mellitus Status: Chronic (10) Prophylactic measure Status: Acute - Assessment and Plan (Free Text) Plan: (1) Cellulitis of left leg Assessment and Plan: Foot xray: joint space narrowing of MTP & PIP joints; no bony or erosive changes ; there is osteopenia. Possibly secondary to infection, psoriasis, or RA. Blood cx: no growth after 24hours ID consulted, Dr. Cazares, help appreciated. Podiatry consulted for nail clipping Wound care consulted Status: Acute (2) Urinary tract infection Assessment and Plan: Patient has a history of chronic UTIs; Patient has a circumcision in 2014 for chronic UTIs. Leukocytosis likely secondary to UTI. UA: 2+ protein, 3+ blood, 2+ LE, 24WBC, 128 RBCs, 3-5 hyaline casts. Urine cx: no growth Blood cx: no growth after 24hours In ED, patient was given one dose of Tigecycline. Patient has multiple drug allergies, and a history of multiresistant UTIs. ID consulted, Dr. Cazares, help appreciated. Antibiotics will be started as per ID. * Started Meropenem 1gm IVPB Q8h 02/20- discontinued * Started Linezolid 600mg IV Q12 on 02/22/17 Status: Acute (3) Leukocytosis Assessment and Plan: Likely secondary to UTI WBC 20.2 at admission 02/22: 19.1 02/21: 17.7, Improving, trending down Afebrile Patient received one dose of Tigecycline in ED. ID consulted, Dr. Cazares, help appreciated Antibiotics will be started as per ID. * Started Meropenem 1gm IVPB Q8h 02/20-discontinued * Started Linezolid 600mg IV Q12 on 02/22/17 Blood cx: no growth after 24hours Urine cx: no growth Status: Acute (4) HTN (hypertension) Assessment and Plan: Continue home medications. Monitor vitals. Status: Acute (5) Diarrhea Assessment and Plan: C.Diff: f/u results Stool cx: f/u results Stool leukocytes: negative Status: Acute (6) Rheumatoid arthritis Assessment and Plan: Left LE swelling and erythema, possibly secondary to rheumatoid arthritis Status: Chronic (7) Autism disorder Assessment and Plan: Parents, Bruce, have requested patient has private room. Parents report they will be with patient 24/7, as patient needs constant assistance. Status: Chronic (8) Psoriasis Assessment and Plan: Left LE swelling and erythema, likely secondary to cellulitis, but may be secondary to psorasis Hydrocortisone 1% topically as needed Wound care consulted Status: Chronic (9) Diabetes mellitus Assessment and Plan: Home medication, Metformin, held. ISS Accuchecks Monitor daily blood glucose A1c: 6.9 Status: Chronic (10) Cough Assessment and Plan: Chest xray: mild venous congestion; right hilar prominence; biapical thickening with upper lobe granulomatous changes; cardiomegaly. (11) Prophylactic measure Assessment and Plan: C/I SCDs 2/2 LE swelling and pain Pepcid 20mg PO BID Heparin 5,000 SC Q8h Consistent low carb heart healthy diet PT/OT Case discussed with Mother and Case management: no pipe fitter supervisor maintenance available at [facility]; was advised to seek outpatient pipe fitter supervisor maintenance care. Also discussed transferring patient to rehabilitation for rheumatoid arthritis and psoriasis as patient is bed bound and requires PT/OT. Patient accepted to rehabilitation. Will follow up stool studies before discharging to rehab. <Doc Springer - Last Filed: 02/24/17 18:00> Objective - Vital Signs/Intake and Output Vital Signs (last 24 hours): Temp Pulse Resp BP Pulse Ox 97.3 F L 117 H 19 127/78 97 02/24/17 16:29 02/24/17 16:29 02/24/17 16:29 02/24/17 16:29 02/24/17 16:29 Intake and Output: 02/24/17 02/24/17 06:59 18:59 Intake Total 980 Balance 980 - Medications Medications: Current Medications Albuterol (Ventolin Hfa 90 Mcg/Actuation (8 G)) 1 puff IH RBID [facility] Last Admin: 02/24/17 07:51 Dose: Not Given Amlodipine Besylate (Norvasc) 5 mg PO BID [facility] Last Admin: 02/24/17 17:23 Dose: 5 mg Clobetasol Propionate (Temovate 0.05% Ointment) 1 applic TOP BID [facility] Last Admin: 02/24/17 17:25 Dose: 1 applic Clotrimazole (Lotrimin 1%) 0 gm TOP BID [facility] Last Admin: 02/24/17 17:24 Dose: 1 applic Dicyclomine HCl (Bentyl) 20 mg PO BID [facility] Last Admin: 02/24/17 17:23 Dose: 20 mg Diphenhydramine HCl (Benadryl) 25 mg PO Q6H PRN PRN Reason: Itching,IF NO RELIEF W/ CREAM Last Admin: 02/23/17 10:04 Dose: 25 mg Famotidine (Pepcid) 20 mg PO BID [facility] Last Admin: 02/24/17 17:23 Dose: 20 mg Ferrous Sulfate (Feosol) 325 mg PO BID [facility] Last Admin: 02/24/17 17:23 Dose: 325 mg Heparin Sodium (Porcine) (Heparin) 5,000 units SC Q8 [facility] Last Admin: 02/24/17 13:09 Dose: 5,000 units Hydrocortisone (Cortizone 1% Cream) 1 gm TOP BID PRN PRN Reason: Itching / Pruritus Last Admin: 02/24/17 17:24 Dose: 1 applic Sodium Chloride (Sodium Chloride 0.45%) 1,000 mls @ 100 mls/hr IV .Q10H [facility] Last Admin: 02/24/17 14:24 Dose: 100 mls/hr Insulin Human Regular (Novolin R) 0 unit SC ACHS [facility] PRN Reason: Protocol Last Admin: 02/24/17 16:44 Dose: Not Given Losartan Potassium (Cozaar) 100 mg PO DAILY [facility] Last Admin: 02/24/17 09:53 Dose: 100 mg Montelukast Sodium (Singulair) 10 mg PO HS [facility] Last Admin: 02/23/17 22:08 Dose: 10 mg Saccharomyces Boulardii (Florastor) 250 mg PO DAILY [facility] Last Admin: 02/24/17 09:52 Dose: 250 mg - Labs Labs: 02/24/17 07:59 02/24/17 07:59 Attending/Attestation - Attestation I have personally seen and examined this patient.: Yes I have fully participated in the care of the patient.: Yes I have reviewed all pertinent clinical information, including history, physical exam and plan: Yes Notes (Text): Seen and examined.Discussed with his mother.has diarrhea.No fever Has chronic leukocytosis.D/W Dr Cazares. Follow stool test ,d/c to rehab if stool test negative and diarrhea improves I agree with the resident's documentation of the assessment and the plan
[2017-02-24] MEDS: (Novolin R) Insulin Human Regular 100 units/ml vial SC SCH ×4 (07:30→21:50)
[2017-02-24] MEDS: Albuterol HFA 90 mcg/actuation (8 g) IH SCH ×2 (07:51→20:03)
[2017-02-24 08:14] LABS: BASO # 0.1 K/uL (0.0-0.2); BASO % 0.5 % (0.0-2.0); EOS # 0.2 K/uL (0.0-0.7); HEMATOCRIT 42.7 % (35.0-51.0); LYMPH # 3.6 K/uL (1.0-4.3); LYMPH % 15.2 % (20.0-40.0); MEAN CELL VOLUME 78.5 fL (80.0-94.0); MEAN CORPUSCULAR HEMOGLOBIN 24.6 pg (27.0-31.0); MEAN CORPUSCULAR HGB CONC 31.4 g/dL (33.0-37.0); MEAN PLATELET VOLUME 7.1 fL (7.2-11.7); MONO % 8.6 % (0.0-10.0); NRBC % 0.1 % (0.0-2.0); RED CELL DISTRIBUTION WIDTH 20.3 % (11.5-14.5); WHITE BLOOD COUNT 23.7 K/uL (4.8-10.8)
[2017-02-24 08:40] LABS: ALKALINE PHOSPHATASE 194 U/L (38-126); ALT/SGPT 30 U/L (21-72); AST/SGOT 22 U/L (17-59); BILIRUBIN,TOTAL 0.9 mg/dL (0.2-1.3); BLOOD UREA NITROGEN 10 mg/dL (9-20); CALCIUM 8.8 mg/dl (8.6-10.4); CARBON DIOXIDE 25 mmol/L (22-30); CHLORIDE 97 mmol/L (98-107); GFR AFRICAN-AMERICAN > 60; GLUCOSE,RANDOM 110 mg/dL (75-110); POTASSIUM 4.5 mmol/L (3.6-5.2); SODIUM 134 mmol/L (132-148); TOTAL PROTEIN 7.7 g/dL (6.3-8.3)
[2017-02-24] MEDS: Saccharomyces Boulardi 250 mg Cap PO SCH (09:52)
[2017-02-24] MEDS: Clotrimazole 1% Cream(30 gm) TOP SCH ×2 (09:56→17:24)
[2017-02-24] MEDS: Linezolid 600 mg in D5W 300 ml 600 MG/300 ML BAG IVPB SCH (12:28)
[2017-02-24] MEDS: Sodium Chloride 0.45% 1,000 ML IV SCH (14:24)
--- NOTE | 2017-02-24 14:35 | CP.PCM.PN ---
Subjective - Date & Time of Evaluation Date of Evaluation: 02/24/17 Time of Evaluation: 02:45 - Subjective Subjective: dictated Objective - Vital Signs/Intake and Output Vital Signs (last 24 hours): Temp Pulse Resp BP Pulse Ox 97.8 F 104 H 18 137/89 97 02/24/17 07:00 02/24/17 07:00 02/24/17 07:00 02/24/17 07:00 02/24/17 07:00 - Medications Medications: Current Medications Albuterol (Ventolin Hfa 90 Mcg/Actuation (8 G)) 1 puff IH RBID [facility] Last Admin: 02/24/17 07:51 Dose: Not Given Amlodipine Besylate (Norvasc) 5 mg PO BID [facility] Last Admin: 02/24/17 09:53 Dose: 5 mg Clobetasol Propionate (Temovate 0.05% Ointment) 1 applic TOP BID [facility] Last Admin: 02/24/17 09:54 Dose: 1 applic Clotrimazole (Lotrimin 1%) 0 gm TOP BID [facility] Last Admin: 02/24/17 09:56 Dose: 1 applic Dicyclomine HCl (Bentyl) 20 mg PO BID [facility] Last Admin: 02/24/17 09:52 Dose: 20 mg Diphenhydramine HCl (Benadryl) 25 mg PO Q6H PRN PRN Reason: Itching,IF NO RELIEF W/ CREAM Last Admin: 02/23/17 10:04 Dose: 25 mg Famotidine (Pepcid) 20 mg PO BID [facility] Last Admin: 02/24/17 09:52 Dose: 20 mg Ferrous Sulfate (Feosol) 325 mg PO BID [facility] Last Admin: 02/24/17 09:53 Dose: 325 mg Heparin Sodium (Porcine) (Heparin) 5,000 units SC Q8 [facility] Last Admin: 02/24/17 13:09 Dose: 5,000 units Hydrocortisone (Cortizone 1% Cream) 1 gm TOP BID PRN PRN Reason: Itching / Pruritus Last Admin: 02/23/17 17:29 Dose: 1 applic Linezolid (Zyvox 600mg/300ml D5w) 600 mg in 300 mls @ 200 mls/hr IVPB Q12 [facility] Last Admin: 02/24/17 12:28 Dose: 200 mls/hr Sodium Chloride (Sodium Chloride 0.45%) 1,000 mls @ 100 mls/hr IV .Q10H [facility] Last Admin: 02/24/17 14:24 Dose: 100 mls/hr Insulin Human Regular (Novolin R) 0 unit SC ACHS [facility] PRN Reason: Protocol Last Admin: 02/24/17 12:03 Dose: Not Given Losartan Potassium (Cozaar) 100 mg PO DAILY [facility] Last Admin: 02/24/17 09:53 Dose: 100 mg Montelukast Sodium (Singulair) 10 mg PO HS [facility] Last Admin: 02/23/17 22:08 Dose: 10 mg Saccharomyces Boulardii (Florastor) 250 mg PO DAILY [facility] Last Admin: 02/24/17 09:52 Dose: 250 mg - Labs Labs: 02/24/17 07:59 02/24/17 07:59
[2017-02-24] MEDS: Hydrocortisone 1% Cream (30 GM) TOP PRN (17:24)
[2017-02-25 00:03] VITALS: RESP 20
[2017-02-25] MEDS: Sodium Chloride 0.45% 1,000 ML IV SCH ×3 (04:18→15:18)
[2017-02-25] MEDS: (Novolin R) Insulin Human Regular 100 units/ml vial SC SCH ×4 (07:43→21:51)
[2017-02-25 08:55] LABS: BASO # 0.1 K/uL (0.0-0.2); BASO % 0.5 % (0.0-2.0); EOS # 0.3 K/uL (0.0-0.7); EOS % 1.5 % (0.0-4.0); HEMATOCRIT 39.3 % (35.0-51.0); LYMPH # 3.5 K/uL (1.0-4.3); LYMPH % 15.7 % (20.0-40.0); MEAN CELL VOLUME 78.6 fL (80.0-94.0); MEAN CORPUSCULAR HEMOGLOBIN 24.6 pg (27.0-31.0); MEAN CORPUSCULAR HGB CONC 31.3 g/dL (33.0-37.0); MEAN PLATELET VOLUME 6.9 fL (7.2-11.7); MONO # 1.6 K/uL (0.0-0.8); MONO % 7.3 % (0.0-10.0); RED CELL DISTRIBUTION WIDTH 20.2 % (11.5-14.5); WHITE BLOOD COUNT 22.4 K/uL (4.8-10.8)
[2017-02-25 09:04] LABS: ALB/GLOB RATIO 1.1 (1.0-2.1); ALKALINE PHOSPHATASE 184 U/L (38-126); ALT/SGPT 36 U/L (21-72); AST/SGOT 15 U/L (17-59); BILIRUBIN,TOTAL 0.9 mg/dL (0.2-1.3); BLOOD UREA NITROGEN 7 mg/dL (9-20); CALCIUM 8.4 mg/dl (8.6-10.4); CARBON DIOXIDE 26 mmol/L (22-30); CHLORIDE 97 mmol/L (98-107); GFR AFRICAN-AMERICAN > 60; GLUCOSE,RANDOM 109 mg/dL (75-110); POTASSIUM 3.4 mmol/L (3.6-5.2); SODIUM 132 mmol/L (132-148)
[2017-02-25] MEDS ORDERED: Potassium Chloride 20 mEq/15 ml LIQ UD PO ONE (10:00)
[2017-02-25] MEDS: Nystatin 100,000 Units/ml Oral Susp 5 ml UD PO SCH ×4 (10:34→21:58)
[2017-02-25] MEDS: Saccharomyces Boulardi 250 mg Cap PO SCH (10:40)
[2017-02-25] MEDS: Clotrimazole 1% Cream(30 gm) TOP SCH ×2 (10:40→18:05)
--- NOTE | 2017-02-25 12:18 | CP.PCM.PN ---
<Stephani Alcaraz - Last Filed: 02/25/17 14:35> Subjective - Date & Time of Evaluation Date of Evaluation: 02/25/17 Time of Evaluation: 12:18 - Subjective Subjective: Medicine progress notes for Dr. Springer Patient was seen and examined at bedside. Patient was in no acute distress. Mother was at bedside and reports his skin appears to be worsening. She also reports the patient is not eating or drinking well and had a few episodes of diarrhea overnight. ROS not obtained because patient is nonverbal. Objective - Vital Signs/Intake and Output Vital Signs (last 24 hours): Temp Pulse Resp BP Pulse Ox 98 F 111 H 20 129/74 96 02/25/17 07:51 02/25/17 07:51 02/25/17 07:51 02/25/17 07:51 02/25/17 07:51 Intake and Output: 02/25/17 02/25/17 06:59 18:59 Intake Total 1030 Balance 1030 - Medications Medications: Current Medications Albuterol (Ventolin Hfa 90 Mcg/Actuation (8 G)) 1 puff IH RBID [facility] Last Admin: 02/24/17 20:03 Dose: Not Given Amlodipine Besylate (Norvasc) 5 mg PO BID [facility] Last Admin: 02/25/17 10:40 Dose: 5 mg Clobetasol Propionate (Temovate 0.05% Ointment) 1 applic TOP BID [facility] Last Admin: 02/25/17 10:40 Dose: 1 applic Clotrimazole (Lotrimin 1%) 0 gm TOP BID [facility] Last Admin: 02/25/17 10:40 Dose: 1 applic Dicyclomine HCl (Bentyl) 20 mg PO BID [facility] Last Admin: 02/25/17 10:39 Dose: 20 mg Diphenhydramine HCl (Benadryl) 25 mg PO Q6H PRN PRN Reason: Itching,IF NO RELIEF W/ CREAM Last Admin: 02/23/17 10:04 Dose: 25 mg Famotidine (Pepcid) 20 mg PO BID [facility] Last Admin: 02/25/17 10:39 Dose: 20 mg Ferrous Sulfate (Feosol) 325 mg PO BID [facility] Last Admin: 02/25/17 10:39 Dose: 325 mg Heparin Sodium (Porcine) (Heparin) 5,000 units SC Q8 [facility] Last Admin: 02/24/17 22:14 Dose: 5,000 units Hydrocortisone (Cortizone 1% Cream) 1 gm TOP BID PRN PRN Reason: Itching / Pruritus Last Admin: 02/24/17 17:24 Dose: 1 applic Sodium Chloride (Sodium Chloride 0.45%) 1,000 mls @ 100 mls/hr IV .Q10H [facility] Last Admin: 02/25/17 04:18 Dose: 100 mls/hr Insulin Human Regular (Novolin R) 0 unit SC ACHS [facility] PRN Reason: Protocol Last Admin: 02/25/17 11:49 Dose: Not Given Losartan Potassium (Cozaar) 100 mg PO DAILY [facility] Last Admin: 02/25/17 10:40 Dose: 100 mg Montelukast Sodium (Singulair) 10 mg PO HS [facility] Last Admin: 02/24/17 22:14 Dose: 10 mg Nystatin (Nystatin Oral Susp) 5 ml PO QID [facility] Last Admin: 02/25/17 10:34 Dose: 5 ml Prednisone (Prednisone Tab) 20 mg PO DAILY [facility] Stop: 02/27/17 10:01 Saccharomyces Boulardii (Florastor) 250 mg PO DAILY [facility] Last Admin: 02/25/17 10:40 Dose: 250 mg - Labs Labs: 02/25/17 08:34 02/25/17 08:34 - Additional Findings Additional findings: - Head Exam Head Exam: NORMOCEPHALIC Additional comments: Psoriatic lesions/plaques on scalp - Eye Exam Eye Exam: EOMI, Normal appearance - ENT Exam ENT Exam: Mucous Membranes Moist - Respiratory Exam Respiratory Exam: Decreased Breath Sounds (patient not cooperative with exam), Clear to Auscultation Bilateral, NORMAL BREATHING PATTERN. absent: Rhonchi, Wheezes, Respiratory Distress - Cardiovascular Exam Cardiovascular Exam: REGULAR RHYTHM, +S1, +S2 - GI/Abdominal Exam GI & Abdominal Exam: Normal Bowel Sounds, Soft. absent: Distended, Firm, Guarding, Mass - Extremities Exam Extremities exam: Positive for: joint swelling (Left knee, ankle foot- swelling , erythematous, tender to palpation, decreased ROM (pt keeps leg flexed at 90deg and cannot extend 2/2 pain), pedal edema. Negative for: normal inspection - Neurological Exam Neurological exam: Alert, Altered - Psychiatric Exam Additional comments: Patient has history of autism. - Skin Additional comments: Left foot/ankle- erythematous, swelling noted; tender to palpation Psoriatic lesions/plaques throughout entire body. Assessment and Plan (1) Cellulitis of left leg Status: Acute (2) Urinary tract infection Status: Acute (3) Leukocytosis Status: Acute (4) HTN (hypertension) Status: Acute (5) Abnormal bowel movement Status: Acute (6) Rheumatoid arthritis Status: Chronic (7) Autism disorder Status: Chronic (8) Psoriasis Status: Chronic (9) Diabetes mellitus Status: Chronic (10) Prophylactic measure Status: Acute - Assessment and Plan (Free Text) Plan: (1) Cellulitis of left leg Assessment and Plan: Foot xray: joint space narrowing of MTP & PIP joints; no bony or erosive changes ; there is osteopenia. Possibly secondary to infection, psoriasis, or RA. Blood cx: no growth after 4days ID consulted, Dr. Cazares, help appreciated. Antibiotics discontinued on 02/24/17 Podiatry consulted for nail clipping Wound care consulted Status: Acute (2) Urinary tract infection Assessment and Plan: Patient has a history of chronic UTIs; Patient has a circumcision in 2014 for chronic UTIs. Leukocytosis likely secondary to UTI. UA: 2+ protein, 3+ blood, 2+ LE, 24WBC, 128 RBCs, 3-5 hyaline casts. Urine cx: no growth Blood cx: no growth after 4 days In ED, patient was given one dose of Tigecycline. Patient has multiple drug allergies, and a history of multiresistant UTIs. ID consulted, Dr. Cazares, help appreciated. Antibiotics will be started as per ID. * Started Meropenem 1gm IVPB Q8h 02/20- discontinued * Started Linezolid 600mg IV Q12 on 02/22/17- discontinued Antibiotics discontinued on 02/24/17 Status: Acute (3) Leukocytosis Assessment and Plan: Likely secondary to UTI WBC 20.2 at admission 02/22: 19.1 02/21: 17.7, Improving, trending down Afebrile Patient received one dose of Tigecycline in ED. ID consulted, Dr. Cazares, help appreciated Antibiotics will be started as per ID. * Started Meropenem 1gm IVPB Q8h 02/20-discontinued * Started Linezolid 600mg IV Q12 on 11/22/17- discontinued Antibiotics discontinued on 02/24/17 Blood cx: no growth after 4 days Urine cx: no growth Status: Acute (4) HTN (hypertension) Assessment and Plan: Continue home medications. Monitor vitals. Status: Acute (5) Diarrhea Assessment and Plan: C.Diff: negative Stool cx: negative Stool leukocytes: negative Status: Acute (6) Rheumatoid arthritis Assessment and Plan: Left LE swelling and erythema, possibly secondary to rheumatoid arthritis Status: Chronic (7) Autism disorder Assessment and Plan: Parents, Darrell and Jaxonburak, have requested patient has private room. Parents report they will be with patient 24/10, as patient needs constant assistance. Status: Chronic (8) Psoriasis Assessment and Plan: Left LE swelling and erythema, likely secondary to cellulitis, but may be secondary to psorasis Hydrocortisone 1% topically as needed Wound care consulted Status: Chronic (9) Diabetes mellitus Assessment and Plan: Home medication, Metformin, held. ISS Accuchecks Monitor daily blood glucose A1c: 6.9 Status: Chronic (10) Cough Assessment and Plan: Chest xray: mild venous congestion; right hilar prominence; biapical thickening with upper lobe granulomatous changes; cardiomegaly. (11) Oral Thrush Assessment and Plan: Nystatin oral rinse (12) Prophylactic measure Assessment and Plan: C/I SCDs 2/2 LE swelling and pain Pepcid 20mg PO BID Heparin 5,000 SC Q8h Consistent low carb heart healthy diet PT/OT Case discussed with Mother and Case management: no dentistry professor available at [facility]; was advised to seek outpatient dentistry professor care. Also discussed transferring patient to rehabilitation for rheumatoid arthritis and psoriasis as patient is bed bound and requires PT/OT. Patient accepted to rehabilitation, pending transfer. <Doc Springer - Last Filed: 02/25/17 16:17> Objective - Vital Signs/Intake and Output Vital Signs (last 24 hours): Temp Pulse Resp BP Pulse Ox 98.1 F 111 H 20 130/78 97 02/25/17 15:52 02/25/17 15:52 02/25/17 15:52 02/25/17 15:52 02/25/17 15:52 Intake and Output: 02/25/17 02/25/17 06:59 18:59 Intake Total 1030 1100 Balance 1030 1100 - Medications Medications: Current Medications Albuterol (Ventolin Hfa 90 Mcg/Actuation (8 G)) 1 puff IH RBID [facility] Last Admin: 02/24/17 20:03 Dose: Not Given Amlodipine Besylate (Norvasc) 5 mg PO BID [facility] Last Admin: 02/25/17 10:40 Dose: 5 mg Clobetasol Propionate (Temovate 0.05% Ointment) 1 applic TOP BID [facility] Last Admin: 02/25/17 10:40 Dose: 1 applic Clotrimazole (Lotrimin 1%) 0 gm TOP BID [facility] Last Admin: 02/25/17 10:40 Dose: 1 applic Dicyclomine HCl (Bentyl) 20 mg PO BID [facility] Last Admin: 02/25/17 10:39 Dose: 20 mg Diphenhydramine HCl (Benadryl) 25 mg PO Q6H PRN PRN Reason: Itching,IF NO RELIEF W/ CREAM Last Admin: 02/23/17 10:04 Dose: 25 mg Famotidine (Pepcid) 20 mg PO BID [facility] Last Admin: 02/25/17 10:39 Dose: 20 mg Ferrous Sulfate (Feosol) 325 mg PO BID [facility] Last Admin: 02/25/17 10:39 Dose: 325 mg Heparin Sodium (Porcine) (Heparin) 5,000 units SC Q8 [facility] Last Admin: 02/25/17 13:03 Dose: 5,000 units Hydrocortisone (Cortizone 1% Cream) 1 gm TOP BID PRN PRN Reason: Itching / Pruritus Last Admin: 02/24/17 17:24 Dose: 1 applic Sodium Chloride (Sodium Chloride 0.45%) 1,000 mls @ 100 mls/hr IV .Q10H [facility] Last Admin: 02/25/17 15:18 Dose: 100 mls/hr Insulin Human Regular (Novolin R) 0 unit SC ACHS [facility] PRN Reason: Protocol Last Admin: 02/25/17 11:49 Dose: Not Given Losartan Potassium (Cozaar) 100 mg PO DAILY [facility] Last Admin: 02/25/17 10:40 Dose: 100 mg Montelukast Sodium (Singulair) 10 mg PO HS [facility] Last Admin: 02/24/17 22:14 Dose: 10 mg Nystatin (Nystatin Oral Susp) 5 ml PO QID [facility] Last Admin: 02/25/17 13:06 Dose: 5 ml Prednisone (Prednisone Tab) 20 mg PO DAILY [facility] Stop: 02/27/17 10:01 Last Admin: 02/25/17 13:02 Dose: 20 mg Saccharomyces Boulardii (Florastor) 250 mg PO DAILY [facility] Last Admin: 02/25/17 10:40 Dose: 250 mg - Labs Labs: 02/25/17 08:34 02/25/17 08:34 Attending/Attestation - Attestation I have personally seen and examined this patient.: Yes I have fully participated in the care of the patient.: Yes I have reviewed all pertinent clinical information, including history, physical exam and plan: Yes Notes (Text): Patient was seen and examined D/W mother. patient is not eating,spitting food,Likely due to oral thrush.Noted thrush on examination Patient has chronic leukocytosis,off antibiotics Mother is c/o Skin rash got worse due to antibiotics. off antibiotics,encourage oral intake,Nystatin for thrush I agree with the residents documentation 02/25/17 16:14
--- NOTE | 2017-02-25 15:56 | CP.PCM.PN ---
Subjective - Date & Time of Evaluation Date of Evaluation: 02/25/17 Time of Evaluation: 03:40 - Subjective Subjective: dictated Objective - Vital Signs/Intake and Output Vital Signs (last 24 hours): Temp Pulse Resp BP Pulse Ox 98.1 F 111 H 20 130/78 97 02/25/17 15:52 02/25/17 15:52 02/25/17 15:52 02/25/17 15:52 02/25/17 15:52 Intake and Output: 02/25/17 02/25/17 06:59 18:59 Intake Total 1030 1100 Balance 1030 1100 - Medications Medications: Current Medications Albuterol (Ventolin Hfa 90 Mcg/Actuation (8 G)) 1 puff IH RBID [facility] Last Admin: 02/24/17 20:03 Dose: Not Given Amlodipine Besylate (Norvasc) 5 mg PO BID [facility] Last Admin: 02/25/17 10:40 Dose: 5 mg Clobetasol Propionate (Temovate 0.05% Ointment) 1 applic TOP BID [facility] Last Admin: 02/25/17 10:40 Dose: 1 applic Clotrimazole (Lotrimin 1%) 0 gm TOP BID [facility] Last Admin: 02/25/17 10:40 Dose: 1 applic Dicyclomine HCl (Bentyl) 20 mg PO BID [facility] Last Admin: 02/25/17 10:39 Dose: 20 mg Diphenhydramine HCl (Benadryl) 25 mg PO Q6H PRN PRN Reason: Itching,IF NO RELIEF W/ CREAM Last Admin: 02/23/17 10:04 Dose: 25 mg Famotidine (Pepcid) 20 mg PO BID [facility] Last Admin: 02/25/17 10:39 Dose: 20 mg Ferrous Sulfate (Feosol) 325 mg PO BID [facility] Last Admin: 02/25/17 10:39 Dose: 325 mg Heparin Sodium (Porcine) (Heparin) 5,000 units SC Q8 [facility] Last Admin: 02/25/17 13:03 Dose: 5,000 units Hydrocortisone (Cortizone 1% Cream) 1 gm TOP BID PRN PRN Reason: Itching / Pruritus Last Admin: 02/24/17 17:24 Dose: 1 applic Sodium Chloride (Sodium Chloride 0.45%) 1,000 mls @ 100 mls/hr IV .Q10H [facility] Last Admin: 02/25/17 15:18 Dose: 100 mls/hr Insulin Human Regular (Novolin R) 0 unit SC ACHS [facility] PRN Reason: Protocol Last Admin: 02/25/17 11:49 Dose: Not Given Losartan Potassium (Cozaar) 100 mg PO DAILY [facility] Last Admin: 02/25/17 10:40 Dose: 100 mg Montelukast Sodium (Singulair) 10 mg PO HS [facility] Last Admin: 02/24/17 22:14 Dose: 10 mg Nystatin (Nystatin Oral Susp) 5 ml PO QID [facility] Last Admin: 02/25/17 13:06 Dose: 5 ml Prednisone (Prednisone Tab) 20 mg PO DAILY [facility] Stop: 02/27/17 10:01 Last Admin: 02/25/17 13:02 Dose: 20 mg Saccharomyces Boulardii (Florastor) 250 mg PO DAILY [facility] Last Admin: 02/25/17 10:40 Dose: 250 mg - Labs Labs: 02/25/17 08:34 02/25/17 08:34
[2017-02-25] MEDS: Hydrocortisone 1% Cream (30 GM) TOP PRN (18:05)
[2017-02-25] MEDS: Albuterol HFA 90 mcg/actuation (8 g) IH SCH (19:39)
--- NOTE | 2017-02-26 01:29 | PN ---
DATE: 02/25/2017 SUBJECTIVE: The patient was seen today. He was afebrile; however, the mother, all the time whenever I have gone there, they are either applying cream or Vaseline or hydrocortisone cream and he looks red all over, but probably, the redness is secondary to psoriasis which is generalized on this patient and he is incapacitated and has been handled by the parents, though the mother says that he got more red after Zyvox that was given, so I am not very sure about that as he does suffer from psoriasis. He has contractures and he is not having any more diarrhea, but they said it was greenish and she wants me to give another antibiotics to stop it like Flagyl, but I am trying to stay away from antibiotics as they sometimes seem accusatory. This patient has psoriasis with arthritis. PHYSICAL EXAMINATION: VITAL SIGNS: T-max is 98.1, heart rate is 111, blood pressure 130/78, and respirations are 20. HEENT: Head is atraumatic, normocephalic. He has red scalp psoriasis. NECK: Supple. LUNGS: Clear. HEART: S1 and S2, is tachy. ABDOMEN: Unremarkable. EXTREMITIES: Contracted. LABORATORY DATA: Show that white count is 22.4, hemoglobin 12.3, hematocrit 39.3, and platelet count is 643. Potassium is 3.4, and micro haynes, his cultures were all negative. His whole body has redness because of psoriasis I guess and by so much, you know, steroids they applied to the body and Vaseline, you know, I cannot be sure. His serology came out for C. diff negative. ASSESSMENT AND PLAN: We will stay put, and once he improves clinically with his diarrhea and redness, the mild redness decreases, he may possibly go home. Awilda Cazares MD
[2017-02-26] MEDS: Sodium Chloride 0.45% 1,000 ML IV SCH ×2 (02:35→15:35)
[2017-02-26] MEDS: (Novolin R) Insulin Human Regular 100 units/ml vial SC SCH ×4 (07:31→21:13)
[2017-02-26 08:18] LABS: BASO # 0.1 K/uL (0.0-0.2); BASO % 0.6 % (0.0-2.0); EOS # 0.1 K/uL (0.0-0.7); EOS % 0.6 % (0.0-4.0); HEMATOCRIT 37.9 % (35.0-51.0); LYMPH # 3.8 K/uL (1.0-4.3); LYMPH % 21.6 % (20.0-40.0); MEAN CELL VOLUME 77.6 fL (80.0-94.0); MEAN CORPUSCULAR HEMOGLOBIN 24.9 pg (27.0-31.0); MEAN CORPUSCULAR HGB CONC 32.2 g/dL (33.0-37.0); MONO # 1.3 K/uL (0.0-0.8); MONO % 7.2 % (0.0-10.0); NRBC % 0.1 % (0.0-2.0); RED CELL DISTRIBUTION WIDTH 19.9 % (11.5-14.5); WHITE BLOOD COUNT 17.6 K/uL (4.8-10.8)
[2017-02-26 08:52] LABS: ALKALINE PHOSPHATASE 173 U/L (38-126); ALT/SGPT 24 U/L (21-72); AST/SGOT 29 U/L (17-59); BILIRUBIN,TOTAL 0.8 mg/dL (0.2-1.3); BLOOD UREA NITROGEN 4 mg/dL (9-20); CALCIUM 8.5 mg/dl (8.6-10.4); CARBON DIOXIDE 26 mmol/L (22-30); CHLORIDE 97 mmol/L (98-107); GFR AFRICAN-AMERICAN > 60; GLUCOSE,RANDOM 97 mg/dL (75-110); POTASSIUM 3.6 mmol/L (3.6-5.2); SODIUM 131 mmol/L (132-148); TOTAL PROTEIN 6.8 g/dL (6.3-8.3)
[2017-02-26] MEDS: Saccharomyces Boulardi 250 mg Cap PO SCH (11:43)
[2017-02-26] MEDS: Nystatin 100,000 Units/ml Oral Susp 5 ml UD PO SCH ×4 (11:44→22:12)
[2017-02-26] MEDS: DiphenhydrAMINE 50 mg/ml Inj IVP SCH ×3 (11:44→23:54)
[2017-02-26] MEDS: Clotrimazole 1% Cream(30 gm) TOP SCH ×2 (11:50→17:29)
[2017-02-26] MEDS: Oxycodone/Acetaminophen 5/325 mg Tab PO SCH ×2 (12:40→16:46)
--- NOTE | 2017-02-26 15:29 | CP.PCM.PN ---
<Stephani Alcaraz - Last Filed: 02/26/17 15:26> Subjective - Date & Time of Evaluation Date of Evaluation: 02/26/17 Time of Evaluation: 10:00 - Subjective Subjective: Medicine progress notes for Dr. Springer Patient was seen and examined at bedside. Patient was in no acute distress. Mother was at bedside and reports his skin appears to be worsening and patient still has diarrhea that is green. She also reports the patient is not eating or drinking well. ROS not obtained because patient is nonverbal. Objective - Vital Signs/Intake and Output Vital Signs (last 24 hours): Temp Pulse Resp BP Pulse Ox 97.7 F 61 20 157/87 H 99 02/26/17 08:48 02/26/17 08:48 02/26/17 08:48 02/26/17 08:48 02/26/17 08:48 Intake and Output: 02/26/17 02/26/17 06:59 18:59 Intake Total 1840 Balance 1840 - Medications Medications: Current Medications Acetaminophen (Tylenol 325mg Tab) 650 mg PO Q6 PRN PRN Reason: Pain, Mild (1-3) Last Admin: 02/26/17 11:42 Dose: 650 mg Albuterol (Ventolin Hfa 90 Mcg/Actuation (8 G)) 1 puff IH RBID [facility] Last Admin: 02/25/17 19:39 Dose: Not Given Amlodipine Besylate (Norvasc) 5 mg PO BID [facility] Last Admin: 02/26/17 11:43 Dose: 5 mg Clobetasol Propionate (Temovate 0.05% Ointment) 1 applic TOP BID [facility] Last Admin: 02/26/17 11:50 Dose: 1 applic Clotrimazole (Lotrimin 1%) 0 gm TOP BID [facility] Last Admin: 02/26/17 11:50 Dose: 1 applic Dicyclomine HCl (Bentyl) 20 mg PO BID [facility] Last Admin: 02/26/17 11:44 Dose: 20 mg Diphenhydramine HCl (Benadryl) 25 mg IVP Q6H [facility] Last Admin: 02/26/17 11:44 Dose: 25 mg Famotidine (Pepcid) 20 mg PO BID [facility] Last Admin: 02/26/17 11:43 Dose: 20 mg Ferrous Sulfate (Feosol) 325 mg PO BID [facility] Last Admin: 02/26/17 11:44 Dose: 325 mg Heparin Sodium (Porcine) (Heparin) 5,000 units SC Q8 [facility] Last Admin: 02/26/17 13:39 Dose: 5,000 units Hydrocortisone (Cortizone 1% Cream) 1 gm TOP BID PRN PRN Reason: Itching / Pruritus Last Admin: 02/25/17 18:05 Dose: 1 applic Sodium Chloride (Sodium Chloride 0.45%) 1,000 mls @ 100 mls/hr IV .Q10H [facility] Last Admin: 02/26/17 02:35 Dose: 100 mls/hr Insulin Human Regular (Novolin R) 0 unit SC ACHS [facility] PRN Reason: Protocol Last Admin: 02/26/17 13:40 Dose: 1 unit Losartan Potassium (Cozaar) 100 mg PO DAILY [facility] Last Admin: 02/26/17 11:44 Dose: 100 mg Methylprednisolone (Solu-Medrol) 40 mg IVP Q12 [facility] Montelukast Sodium (Singulair) 10 mg PO HS [facility] Last Admin: 02/25/17 21:58 Dose: 10 mg Nystatin (Nystatin Oral Susp) 5 ml PO QID [facility] Last Admin: 02/26/17 13:40 Dose: 5 ml Oxycodone/Acetaminophen (Percocet 5/325 Mg Tab) 1 tab PO Q24H [facility] Stop: 03/01/17 11:46 Saccharomyces Boulardii (Florastor) 250 mg PO DAILY [facility] Last Admin: 02/26/17 11:43 Dose: 250 mg - Labs Labs: 02/26/17 07:54 02/26/17 07:54 - Additional Findings Additional findings: - Head Exam Head Exam: NORMOCEPHALIC Additional comments: Psoriatic lesions/plaques on scalp - Eye Exam Eye Exam: EOMI, Normal appearance - ENT Exam ENT Exam: Mucous Membranes Moist - Respiratory Exam Respiratory Exam: Decreased Breath Sounds (patient not cooperative with exam), Clear to Auscultation Bilateral, NORMAL BREATHING PATTERN. absent: Rhonchi, Wheezes, Respiratory Distress - Cardiovascular Exam Cardiovascular Exam: REGULAR RHYTHM, +S1, +S2 - GI/Abdominal Exam GI & Abdominal Exam: Normal Bowel Sounds, Soft. absent: Distended, Firm, Guarding, Mass - Extremities Exam Extremities exam: Positive for: joint swelling (Left knee, ankle foot- swelling , erythematous, tender to palpation, decreased ROM (pt keeps leg flexed at 90deg and cannot extend 2/2 pain), pedal edema. Negative for: normal inspection - Neurological Exam Neurological exam: Alert, Altered - Psychiatric Exam Additional comments: Patient has history of autism. - Skin Additional comments: Diffuse erythematous pruritic rash covering face, extremities, and trunk, likely secondary to reaction to antibiotics Left foot/ankle- erythematous, swelling noted; tender to palpation Psoriatic lesions/plaques throughout entire body. Assessment and Plan (1) Cellulitis of left leg Status: Acute (2) Urinary tract infection Status: Acute (3) Leukocytosis Status: Acute (4) HTN (hypertension) Status: Acute (5) Abnormal bowel movement Status: Acute (6) Rheumatoid arthritis Status: Chronic (7) Autism disorder Status: Chronic (8) Psoriasis Status: Chronic (9) Diabetes mellitus Status: Chronic (10) Allergic drug rash Status: Acute (11) Prophylactic measure Status: Acute - Assessment and Plan (Free Text) Plan: (1) Cellulitis of left leg Assessment and Plan: Foot xray: joint space narrowing of MTP & PIP joints; no bony or erosive changes ; there is osteopenia. Possibly secondary to infection, psoriasis, or RA. Blood cx: no growth after 5days ID consulted, Dr. Cazares, help appreciated. Antibiotics discontinued on 02/24/17 Podiatry consulted for nail clipping Wound care consulted Status: Acute (2) Urinary tract infection Assessment and Plan: Patient has a history of chronic UTIs; Patient has a circumcision in 2014 for chronic UTIs. Leukocytosis likely secondary to UTI. UA: 2+ protein, 3+ blood, 2+ LE, 24WBC, 128 RBCs, 3-5 hyaline casts. Urine cx: no growth Blood cx: no growth after 5 days In ED, patient was given one dose of Tigecycline. Patient has multiple drug allergies, and a history of multiresistant UTIs. ID consulted, Dr. Cazares, help appreciated. Antibiotics will be started as per ID. * Started Meropenem 1gm IVPB Q8h 02/20- discontinued * Started Linezolid 600mg IV Q12 on 02/22/17- discontinued Antibiotics discontinued on 02/24/17 Status: Acute (3) Leukocytosis Assessment and Plan: Likely secondary to UTI WBC 20.2 at admission 02/22: 19.1 02/21: 17.7, Improving, trending down Afebrile Patient received one dose of Tigecycline in ED. ID consulted, Dr. Cazares, help appreciated Antibiotics will be started as per ID. * Started Meropenem 1gm IVPB Q8h 02/20-discontinued * Started Linezolid 600mg IV Q12 on 02/22/17- discontinued Antibiotics discontinued on 02/24/17 Blood cx: no growth after 5 days Urine cx: no growth Status: Acute (4) HTN (hypertension) Assessment and Plan: Continue home medications. Monitor vitals. Status: Acute (5) Diarrhea Assessment and Plan: C.Diff: negative Stool cx: negative Stool leukocytes: negative Gave one dose of immodium Status: Acute (6) Rheumatoid arthritis Assessment and Plan: Left LE swelling and erythema, possibly secondary to rheumatoid arthritis Status: Chronic (7) Autism disorder Assessment and Plan: Parents, Darrell and Gerardo, have requested patient has private room. Parents report they will be with patient 24/10, as patient needs constant assistance. Status: Chronic (8) Psoriasis Assessment and Plan: Left LE swelling and erythema, likely secondary to cellulitis, but may be secondary to psorasis Hydrocortisone 1% topically as needed Wound care consulted Status: Chronic (9) Diabetes mellitus Assessment and Plan: Home medication, Metformin, held. ISS Accuchecks Monitor daily blood glucose A1c: 6.9 Status: Chronic (10) Cough Assessment and Plan: Chest xray: mild venous congestion; right hilar prominence; biapical thickening with upper lobe granulomatous changes; cardiomegaly. Improved (11) Oral Thrush Assessment and Plan: Nystatin oral rinse (12) Allergic Drug Rash Assessment and Plan: Likely secondary to antibiotics (discontinued on 02/24/17) Started solumedrol and changed Benadryl order to scheduled (previously PRN) (12) Prophylactic measure Assessment and Plan: C/I SCDs 2/2 LE swelling and pain Pepcid 20mg PO BID Heparin 5,000 SC Q8h Consistent low carb heart healthy diet PT/OT Case discussed with Mother and Case management: no elderly sitter available at [facility]; was advised to seek outpatient elderly sitter care. Also discussed transferring patient to rehabilitation for rheumatoid arthritis and psoriasis as patient is bed bound and requires PT/OT. Patient accepted to rehabilitation, pending transfer. <Doc Springer - Last Filed: 02/26/17 16:58> Objective - Vital Signs/Intake and Output Vital Signs (last 24 hours): Temp Pulse Resp BP Pulse Ox 97.8 F 110 H 20 127/69 97 02/26/17 16:25 02/26/17 16:25 02/26/17 16:25 02/26/17 16:25 02/26/17 16:25 Intake and Output: 02/26/17 02/26/17 06:59 18:59 Intake Total 1840 1260 Balance 1840 1260 - Medications Medications: Current Medications Acetaminophen (Tylenol 325mg Tab) 650 mg PO Q6 PRN PRN Reason: Pain, Mild (1-3) Last Admin: 02/26/17 11:42 Dose: 650 mg Albuterol (Ventolin Hfa 90 Mcg/Actuation (8 G)) 1 puff IH RBID [facility] Last Admin: 02/25/17 19:39 Dose: Not Given Amlodipine Besylate (Norvasc) 5 mg PO BID [facility] Last Admin: 02/26/17 11:43 Dose: 5 mg Clobetasol Propionate (Temovate 0.05% Ointment) 1 applic TOP BID [facility] Last Admin: 02/26/17 11:50 Dose: 1 applic Clotrimazole (Lotrimin 1%) 0 gm TOP BID [facility] Last Admin: 02/26/17 11:50 Dose: 1 applic Dicyclomine HCl (Bentyl) 20 mg PO BID [facility] Last Admin: 02/26/17 11:44 Dose: 20 mg Diphenhydramine HCl (Benadryl) 25 mg IVP Q6H [facility] Last Admin: 02/26/17 11:44 Dose: 25 mg Famotidine (Pepcid) 20 mg PO BID [facility] Last Admin: 02/26/17 11:43 Dose: 20 mg Ferrous Sulfate (Feosol) 325 mg PO BID [facility] Last Admin: 02/26/17 11:44 Dose: 325 mg Heparin Sodium (Porcine) (Heparin) 5,000 units SC Q8 [facility] Last Admin: 02/26/17 13:39 Dose: 5,000 units Hydrocortisone (Cortizone 1% Cream) 1 gm TOP BID PRN PRN Reason: Itching / Pruritus Last Admin: 02/25/17 18:05 Dose: 1 applic Sodium Chloride (Sodium Chloride 0.45%) 1,000 mls @ 100 mls/hr IV .Q10H [facility] Last Admin: 02/26/17 15:35 Dose: 100 mls/hr Insulin Human Regular (Novolin R) 0 unit SC ACHS [facility] PRN Reason: Protocol Last Admin: 02/26/17 16:44 Dose: 3 unit Losartan Potassium (Cozaar) 100 mg PO DAILY [facility] Last Admin: 02/26/17 11:44 Dose: 100 mg Methylprednisolone (Solu-Medrol) 40 mg IVP Q12 [facility] Montelukast Sodium (Singulair) 10 mg PO HS [facility] Last Admin: 02/25/17 21:58 Dose: 10 mg Nystatin (Nystatin Oral Susp) 5 ml PO QID [facility] Last Admin: 02/26/17 13:40 Dose: 5 ml Oxycodone/Acetaminophen (Percocet 5/325 Mg Tab) 1 tab PO Q24H [facility] Stop: 03/01/17 11:46 Last Admin: 02/26/17 16:46 Dose: 1 tab Saccharomyces Boulardii (Florastor) 250 mg PO DAILY [facility] Last Admin: 02/26/17 11:43 Dose: 250 mg - Labs Labs: 02/26/17 07:54 02/26/17 07:54 Attending/Attestation - Attestation I have personally seen and examined this patient.: Yes I have fully participated in the care of the patient.: Yes I have reviewed all pertinent clinical information, including history, physical exam and plan: Yes Notes (Text): Patient was seen and examined.d/w mother at bedside Acute exacerbation of rash/Possible late drug reaction Very itchy,pt was c/o abdominal pain as per his mother ,has loose stools ,poor intake Patient irritable and agitated no fever,chronic leukocytosis,off anitbiotics Stool for CD colitis negative ,imodium x1 started on steroid ,pain meds and give benadryl 6h continue fluids Disposition-Rehab out pt rheumatology d/w the resident I agree with the documentation of the assessment and the plan
[2017-02-26] MEDS: Hydrocortisone 1% Cream (30 GM) TOP PRN (17:29)
[2017-02-26] MEDS: Albuterol HFA 90 mcg/actuation (8 g) IH SCH (19:19)
[2017-02-26] MEDS: MethylPREDNISolone 40 mg Vial IVP SCH (22:12)
[2017-02-27] MEDS: Sodium Chloride 0.45% 1,000 ML IV SCH ×3 (02:33→14:12)
[2017-02-27] MEDS: DiphenhydrAMINE 50 mg/ml Inj IVP SCH ×3 (05:46→17:15)
[2017-02-27 07:36] LABS: BASO % 0.1 % (0.0-2.0); HEMATOCRIT 34.6 % (35.0-51.0); LYMPH % 8.9 % (20.0-40.0); MEAN CELL VOLUME 78.3 fL (80.0-94.0); MEAN CORPUSCULAR HEMOGLOBIN 25.3 pg (27.0-31.0); MEAN CORPUSCULAR HGB CONC 32.3 g/dL (33.0-37.0); MEAN PLATELET VOLUME 7.1 fL (7.2-11.7); MONO # 0.2 K/uL (0.0-0.8); MONO % 2.1 % (0.0-10.0); RED CELL DISTRIBUTION WIDTH 19.7 % (11.5-14.5); WHITE BLOOD COUNT 11.7 K/uL (4.8-10.8)
[2017-02-27 07:48] LABS: PLATELET COUNT 561 K/uL (130-400)
--- NOTE | 2017-02-27 08:14 | PN ---
DATE: 02/24/2017 SUBJECTIVE: This is a 32-year-old male. He has been having diarrhea. His skin is looking better. He had 3 BMs. They have collected stool for C. diff. The nurse called me as he is having diarrhea and he is not eating much. It could be related to Zyvox. He has also had Levaquin at home and he has been on antibiotics since his parents are concerned about the cellulitis. PHYSICAL EXAMINATION: VITAL SIGNS: T-max 97.5, heart rate of 118, blood pressure 143/76, and respirations are 20. HEENT: Head is atraumatic and normocephalic. NECK: Supple. LUNGS: Clear. No crackles or rales present. HEART: S1 and S2 is regular. ABDOMEN: Soft. EXTREMITIES: His both legs have contractures, left worse than right. ASSESSMENT AND PLAN: Skin remains with redness. He has psoriasis and we are applying clotrimazole to interdigital clefts and he is in a poor state; however, his white count is 23 and it has been increasing in spite of giving antibiotics and so I am going to hold the Zyvox now and check stool for Clostridium diff. Legs are looking a lot better with the cellulitis, at this point unless he becomes febrile, we are not going to start antibiotics and we will get lactate levels done tomorrow morning just to make sure that his lactate level is normal. Only problem is that he is not eating and parents are concerned and it could be related to the medications he is on and they think when he gets oral steroids, he start to feel hungry, it may be effect of the steroids. We will follow. Awilda Cazares MD
[2017-02-27 08:44] LABS: ALB/GLOB RATIO 0.8 (1.0-2.1); ALKALINE PHOSPHATASE 152 U/L (38-126); ALT/SGPT 22 U/L (21-72); AST/SGOT 17 U/L (17-59); BILIRUBIN,TOTAL 0.2 mg/dL (0.2-1.3); BLOOD UREA NITROGEN 3 mg/dL (9-20); CALCIUM 8.4 mg/dl (8.6-10.4); CARBON DIOXIDE 25 mmol/L (22-30); CHLORIDE 98 mmol/L (98-107); GFR AFRICAN-AMERICAN > 60; GLUCOSE,RANDOM 233 mg/dL (75-110); POTASSIUM 3.6 mmol/L (3.6-5.2); SODIUM 134 mmol/L (132-148)
[2017-02-27 08:51] LABS: MYELOCYTE 1 % (0-0); NEUTROPHIL 86 % (50-75); TOTAL CELLS COUNTED 100
[2017-02-27] MEDS: (Novolin R) Insulin Human Regular 100 units/ml vial SC SCH ×3 (10:00→17:08)
[2017-02-27] MEDS: Clotrimazole 1% Cream(30 gm) TOP SCH ×2 (11:00→17:08)
[2017-02-27] MEDS: Nystatin 100,000 Units/ml Oral Susp 5 ml UD PO SCH ×3 (11:00→17:03)
[2017-02-27] MEDS: MethylPREDNISolone 40 mg Vial IVP SCH (11:00)
[2017-02-27] MEDS: Saccharomyces Boulardi 250 mg Cap PO SCH (14:11)
--- NOTE | 2017-02-27 14:29 | CP.PCM.DIS ---
<Stephani Alcaraz - Last Filed: 02/27/17 14:26> Provider - Provider Date of Admission: 02/20/17 13:59 Attending physician: Doc Springer MD Primary care physician: Dr. Verdin Consults: ID: Dr. [email or web address] Podiatry: Dr. Taylor Time Spent in preparation of Discharge (in minutes): 45 Diagnosis - Discharge Diagnosis (1) Cellulitis of left leg Status: Acute (2) Urinary tract infection Status: Acute (3) Leukocytosis Status: Acute (4) HTN (hypertension) Status: Acute (5) Abnormal bowel movement Status: Acute (6) Rheumatoid arthritis Status: Chronic (7) Autism disorder Status: Chronic Priority: Low (8) Psoriasis Status: Chronic (9) Diabetes mellitus Status: Chronic Priority: Medium (10) Allergic drug rash Status: Acute (11) Prophylactic measure Status: Acute Hospital Course - Lab Results Lab Results: Micro Results 02/20/17 13:38 Blood Blood Culture - Final NO GROWTH AFTER 5 DAYS 02/20/17 13:38 Blood Gram Stain - Final TEST NOT PERFORMED 02/20/17 12:50 Blood Blood Culture - Final NO GROWTH AFTER 5 DAYS 02/20/17 12:50 Blood Gram Stain - Final TEST NOT PERFORMED 02/21/17 Unknown Stool Stool Culture - Final NO SALMONELLA, SHIGELLA OR CAMPYLOBACTER ISOLATED. 02/21/17 Unknown Stool Ova and Parasite Concentrate Exam - Final 02/21/17 00:51 Urine,Clean Catch Urine Culture - Final No Growth (<1,000 CFU/ML) 02/20/17 Unknown Urine Urine Culture - Final No Growth (<1,000 CFU/ML) Most Recent Lab Values WBC 11.7 K/uL (4.8-10.8) H 02/27/17 07:11 RBC 4.42 Mil/uL (4.40-5.90) 02/27/17 07:11 Hgb 11.2 g/dL (12.0-18.0) L 02/27/17 07:11 Hct 34.6 % (35.0-51.0) L 02/27/17 07:11 MCV 78.3 fL (80.0-94.0) L 02/27/17 07:11 MCH 25.3 pg (27.0-31.0) L 02/27/17 07:11 MCHC 32.3 g/dL (33.0-37.0) L 02/27/17 07:11 RDW 19.7 % (11.5-14.5) H 02/27/17 07:11 Plt Count 561 K/uL (130-400) H D 02/27/17 07:11 MPV 7.1 fL (7.2-11.7) L 02/27/17 07:11 Neut % (Auto) 88.9 % (50.0-75.0) H 02/27/17 07:11 Lymph % (Auto) 8.9 % (20.0-40.0) L 02/27/17 07:11 Bland % (Auto) 2.1 % (0.0-10.0) 02/27/17 07:11 Eos % (Auto) 0.0 % (0.0-4.0) 02/27/17 07:11 Baso % (Auto) 0.1 % (0.0-2.0) 02/27/17 07:11 Neut # 10.4 K/uL (1.8-7.0) H 02/27/17 07:11 Lymph # 1.0 K/uL (1.0-4.3) 02/27/17 07:11 Bland # 0.2 K/uL (0.0-0.8) 02/27/17 07:11 Eos # 0.0 K/uL (0.0-0.7) 02/27/17 07:11 Baso # 0.0 K/uL (0.0-0.2) 02/27/17 07:11 Neutrophils % (Manual) 86 % (50-75) H 02/27/17 07:11 Band Neutrophils % 4 % (0-2) H 02/27/17 07:11 Lymphocytes % (Manual) 9 % (20-40) L 02/27/17 07:11 Monocytes % (Manual) TEST NOT PERFORMED 02/27/17 07:11 Myelocytes % 1 % (0-0) H 02/27/17 07:11 Platelet Estimate Increased (NORMAL) H 02/27/17 07:11 Large Platelets Present 02/21/17 07:29 RBC Morphology Normal 02/23/17 07:25 Anisocytosis (manual) Moderate 02/27/17 07:11 Sodium 134 mmol/L (132-148) 02/27/17 07:11 Potassium 3.6 mmol/L (3.6-5.2) 02/27/17 07:11 Chloride 98 mmol/L (98-107) 02/27/17 07:11 Carbon Dioxide 25 mmol/L (22-30) 02/27/17 07:11 Anion Gap 15 (10-20) 02/27/17 07:11 BUN 3 mg/dL (9-20) L 02/27/17 07:11 Creatinine 0.4 mg/dL (0.8-1.5) L 02/27/17 07:11 Est GFR ( Amer) > 60 02/27/17 07:11 Est GFR (Non-Af Amer) > 60 02/27/17 07:11 POC Glucose (mg/dL) 195 mg/dL (65-110) H 02/27/17 11:16 Random Glucose 233 mg/dL (75-110) H 02/27/17 07:11 Hemoglobin A1c 6.9 % (4.2-6.5) H 02/21/17 07:29 Lactic Acid 1.1 mmol/L (0.7-2.1) 02/25/17 08:42 Calcium 8.4 mg/dl (8.6-10.4) L 02/27/17 07:11 Total Bilirubin 0.2 mg/dL (0.2-1.3) 02/27/17 07:11 AST 17 U/L (17-59) D 02/27/17 07:11 ALT 22 U/L (21-72) 02/27/17 07:11 Alkaline Phosphatase 152 U/L (38-126) H 02/27/17 07:11 Total Protein 7.0 g/dL (6.3-8.3) 02/27/17 07:11 Albumin 3.1 g/dL (3.5-5.0) L 02/27/17 07:11 Globulin 4.0 gm/dL (2.2-3.9) H 02/27/17 07:11 Albumin/Globulin Ratio 0.8 (1.0-2.1) L 02/27/17 07:11 Urine Color Yellow (YELLOW) 02/20/17 12:12 Urine Clarity Hazy (Clear) 02/20/17 12:12 Urine pH 6.0 (5.0-8.0) 02/20/17 12:12 Ur Specific [place] 1.016 (1.003-1.030) 02/20/17 12:12 Urine Protein 2+ mg/dL (NEGATIVE) H 02/20/17 12:12 Urine Glucose (UA) Normal mg/dL (Normal) 02/20/17 12:12 Urine Ketones Negative mg/dL (NEGATIVE) 02/20/17 12:12 Urine Blood 3+ (NEGATIVE) H 02/20/17 12:12 Urine Nitrate Negative (NEGATIVE) 02/20/17 12:12 Urine Bilirubin Negative (NEGATIVE) 02/20/17 12:12 Urine Urobilinogen 2.0 mg/dL (0.2-1.0) 02/20/17 12:12 Ur Leukocyte Esterase 2+ Sima/uL (Negative) H 02/20/17 12:12 Urine WBC (Auto) 24 /hpf (0-5) H 02/20/17 12:12 Urine RBC (Auto) 128 /hpf (0-3) H 02/20/17 12:12 Ur Squamous Epith Cells 1 /hpf (0-5) 02/20/17 12:12 Hyaline Casts 3-5 /lpf (0-2) H 02/20/17 12:12 Stool Leukocytes, Qual Negative (NEGATIVE) 02/20/17 Unknown C. difficile Ag & Toxin Negative (NEGATIVE) 02/24/17 22:00 - Hospital Course Hospital Course: CC: UTI, lower extremity edema HPI: Patient is a 32 year old male who is nonverbal with a history of autism, asthma, HTN, DM, chronic UTI, nephrolithiasis, psoriasis, and RA, presents to the ED with his parents (Darrell- Mother, Gerardo- Father) with the complaint of worsening redness and swelling of his left leg as well as dark yellow urine. The leg swelling began three weeks ago and has been intermittent, but has recently gotten worse. Patient saw PMD, Dr. Verdin) who prescribed 20 mg for five days (stopped two weeks ago) with no relief. Patient has been bed bound for the past two years due to worsening RA and psoriasis. As per the parents, the patient keeps his left leg bent at 90 degrees and cannot extend due to the pain. The patient also becomes very upset if the leg lower extremity is touched. As per the parents, the patient has also had 2-3 days of uncontrolled bowel movements, described as green and foul smelling; Patient's parents denies diarrhea, vomiting, and fevers. PMD: Dr. Verdin PMHx: autism, asthma, HTN, DM, chronic UTI, nephrolithiasis, psoriasis, and RA SurgHx: circumcision 2014 (for chronic UTI) FamHx: Aunt- breast cancer; grandparents- DM, HTN, [place] SocHx: denies tobacco, alcohol, and drug use; Lives with parents at home (Fathia - Mother, Osama- Father) Allergies: multiple, please see EMR Medications: multiple, please see EMR Hospital Course: Patient was admitted on 02/20/17 for cellulitis and UTI. In the ED, labs were drawn and a foot xray was performed. Patient was given one dose of Tigecycline in the ED. UA was positive for UTI, labs showed leukocytosis , and foot xray showed joint space narrowing of MTP & PIP joints; no bony or erosive changes; osteopenia. Blood culture, urine culture, and stool studies were ordered and were all negative. ID, Dr. Cazares, was consulted for cellulitis, UTI, multiple drug allergies, and multiple drug resistant UTIs. Patient was started on Meropenem and IV fluids. Patient's home medication for hypertension were continued and vitals were monitored throughout hospital course. Patient's home medication for DM, Metformin, was held and patient was on low dose insulin and blood glucose was monitored throughout hospital course. Patient's psoriasis was managed by parents who were at bedside around the clock with topical medications. Patient developed oral thrush and was prescribed oral nystatin which resolved the thrush. Patient then developed diarrhea and an extensive itchy rash, likely secondary to antibiotics. Antibiotics were stopped , Benadryl and Solu-medrol were administered. C.diff was ordered and negative. Patient was seen and examined today in no acute distress. Patient's leukocytosis has resolved, skin reaction has improved, and diarrhea has resolved. Patient was accepted to [facility] rehabilitation and is stable for discharge and transfer to rehab facility. This is a brief summary of the hospital course. Please see EMR for more details. Discharge Exam - Head Exam Head Exam: absent: NORMAL INSPECTION (psoratic plaques) - Eye Exam Eye Exam: EOMI, Normal appearance - ENT Exam ENT Exam: Mucous Membranes Moist - Respiratory Exam Respiratory Exam: Decreased Breath Sounds (2/2 does not follow commands), Clear to PA & Lateral, NORMAL BREATHING PATTERN. absent: Rales, Rhonchi, Wheezes, Respiratory Distress - Cardiovascular Exam Cardiovascular Exam: REGULAR RHYTHM, +S1, +S2 - GI/Abdominal Exam GI & Abdominal Exam: Normal Bowel Sounds, Soft. absent: Distended, Firm, Guarding - Extremities Exam Extremities exam: tenderness Additional comments: Contracted and stiff left LE due to RA. - Neurological Exam Neurological exam: Alert - Psychiatric Exam Psychiatric exam: Flat Affect Additional comments: Hx of Autism - Skin Skin Exam: Dry, Erythema, Rash Additional comments: Psoriatic lesions/plaques throughout entire body;improving erythematous rash through entire body (likely secondary to sensitivity to antibiotic) Discharge Plan - Discharge Medications Prescriptions: Prednisone [Deltasone] 20 mg PO BID 5 Days #10 tablet predniSONE [predniSONE Tab] 10 mg PO BID 5 Days #10 tab - Follow Up Plan Condition: FAIR Disposition: REHAB FACILITY/REHAB UNIT Instructions: Prednisone (By mouth), Cellulitis (DC), Rheumatoid Arthritis (DC) Additional Instructions: Patient is stable for discharge to [facility]. Patient should continue all medications. Patient will start new medications on 02/28/17: Prednisone 20mg BID for 5 days, followed by Prednisone 10mg PO BID for 5 days. Patient should follow up with PMD within one week of discharge. Patient should follow up outpatient with [facility]. If symptoms reoccur or worsen, patient should return to the ED. Referrals: Kinza Hsu MD [Staff Provider] - <Flynn Smith - Last Filed: 02/27/17 15:58> Provider - Provider Date of Admission: 02/20/17 13:59 Attending physician: Doc Springer MD Hospital Course - Lab Results Lab Results: Micro Results 02/20/17 13:38 Blood Blood Culture - Final NO GROWTH AFTER 5 DAYS 02/20/17 13:38 Blood Gram Stain - Final TEST NOT PERFORMED 02/20/17 12:50 Blood Blood Culture - Final NO GROWTH AFTER 5 DAYS 02/20/17 12:50 Blood Gram Stain - Final TEST NOT PERFORMED 02/21/17 Unknown Stool Stool Culture - Final NO SALMONELLA, SHIGELLA OR CAMPYLOBACTER ISOLATED. 02/21/17 Unknown Stool Ova and Parasite Concentrate Exam - Final 02/21/17 00:51 Urine,Clean Catch Urine Culture - Final No Growth (<1,000 CFU/ML) 02/20/17 Unknown Urine Urine Culture - Final No Growth (<1,000 CFU/ML) Most Recent Lab Values WBC 11.7 K/uL (4.8-10.8) H 02/27/17 07:11 RBC 4.42 Mil/uL (4.40-5.90) 02/27/17 07:11 Hgb 11.2 g/dL (12.0-18.0) L 02/27/17 07:11 Hct 34.6 % (35.0-51.0) L 02/27/17 07:11 MCV 78.3 fL (80.0-94.0) L 02/27/17 07:11 MCH 25.3 pg (27.0-31.0) L 02/27/17 07:11 MCHC 32.3 g/dL (33.0-37.0) L 02/27/17 07:11 RDW 19.7 % (11.5-14.5) H 02/27/17 07:11 Plt Count 561 K/uL (130-400) H D 02/27/17 07:11 MPV 7.1 fL (7.2-11.7) L 02/27/17 07:11 Neut % (Auto) 88.9 % (50.0-75.0) H 02/27/17 07:11 Lymph % (Auto) 8.9 % (20.0-40.0) L 02/27/17 07:11 Bland % (Auto) 2.1 % (0.0-10.0) 02/27/17 07:11 Eos % (Auto) 0.0 % (0.0-4.0) 02/27/17 07:11 Baso % (Auto) 0.1 % (0.0-2.0) 02/27/17 07:11 Neut # 10.4 K/uL (1.8-7.0) H 02/27/17 07:11 Lymph # 1.0 K/uL (1.0-4.3) 02/27/17 07:11 Bland # 0.2 K/uL (0.0-0.8) 02/27/17 07:11 Eos # 0.0 K/uL (0.0-0.7) 02/27/17 07:11 Baso # 0.0 K/uL (0.0-0.2) 02/27/17 07:11 Neutrophils % (Manual) 86 % (50-75) H 02/27/17 07:11 Band Neutrophils % 4 % (0-2) H 02/27/17 07:11 Lymphocytes % (Manual) 9 % (20-40) L 02/27/17 07:11 Monocytes % (Manual) TEST NOT PERFORMED 02/27/17 07:11 Myelocytes % 1 % (0-0) H 02/27/17 07:11 Platelet Estimate Increased (NORMAL) H 02/27/17 07:11 Large Platelets Present 02/21/17 07:29 RBC Morphology Normal 02/23/17 07:25 Anisocytosis (manual) Moderate 02/27/17 07:11 Sodium 134 mmol/L (132-148) 02/27/17 07:11 Potassium 3.6 mmol/L (3.6-5.2) 02/27/17 07:11 Chloride 98 mmol/L (98-107) 02/27/17 07:11 Carbon Dioxide 25 mmol/L (22-30) 02/27/17 07:11 Anion Gap 15 (10-20) 02/27/17 07:11 BUN 3 mg/dL (9-20) L 02/27/17 07:11 Creatinine 0.4 mg/dL (0.8-1.5) L 02/27/17 07:11 Est GFR ( Amer) > 60 02/27/17 07:11 Est GFR (Non-Af Amer) > 60 02/27/17 07:11 POC Glucose (mg/dL) 195 mg/dL (65-110) H 02/27/17 11:16 Random Glucose 233 mg/dL (75-110) H 02/27/17 07:11 Hemoglobin A1c 6.9 % (4.2-6.5) H 02/21/17 07:29 Lactic Acid 1.1 mmol/L (0.7-2.1) 02/25/17 08:42 Calcium 8.4 mg/dl (8.6-10.4) L 02/27/17 07:11 Total Bilirubin 0.2 mg/dL (0.2-1.3) 02/27/17 07:11 AST 17 U/L (17-59) D 02/27/17 07:11 ALT 22 U/L (21-72) 02/27/17 07:11 Alkaline Phosphatase 152 U/L (38-126) H 02/27/17 07:11 Total Protein 7.0 g/dL (6.3-8.3) 02/27/17 07:11 Albumin 3.1 g/dL (3.5-5.0) L 02/27/17 07:11 Globulin 4.0 gm/dL (2.2-3.9) H 02/27/17 07:11 Albumin/Globulin Ratio 0.8 (1.0-2.1) L 02/27/17 07:11 Urine Color Yellow (YELLOW) 02/20/17 12:12 Urine Clarity Hazy (Clear) 02/20/17 12:12 Urine pH 6.0 (5.0-8.0) 02/20/17 12:12 Ur Specific [place] 1.016 (1.003-1.030) 02/20/17 12:12 Urine Protein 2+ mg/dL (NEGATIVE) H 02/20/17 12:12 Urine Glucose (UA) Normal mg/dL (Normal) 02/20/17 12:12 Urine Ketones Negative mg/dL (NEGATIVE) 02/20/17 12:12 Urine Blood 3+ (NEGATIVE) H 02/20/17 12:12 Urine Nitrate Negative (NEGATIVE) 02/20/17 12:12 Urine Bilirubin Negative (NEGATIVE) 02/20/17 12:12 Urine Urobilinogen 2.0 mg/dL (0.2-1.0) 02/20/17 12:12 Ur Leukocyte Esterase 2+ Sima/uL (Negative) H 02/20/17 12:12 Urine WBC (Auto) 24 /hpf (0-5) H 02/20/17 12:12 Urine RBC (Auto) 128 /hpf (0-3) H 02/20/17 12:12 Ur Squamous Epith Cells 1 /hpf (0-5) 02/20/17 12:12 Hyaline Casts 3-5 /lpf (0-2) H 02/20/17 12:12 Stool Leukocytes, Qual Negative (NEGATIVE) 02/20/17 Unknown C. difficile Ag & Toxin Negative (NEGATIVE) 02/24/17 22:00 Attending/Attestation - Attestation I have personally seen and examined this patient.: Yes I have fully participated in the care of the patient.: Yes I have reviewed all pertinent clinical information, including history, physical exam and plan: Yes Notes (Text): 02/27/17 15:58 Medical attending: Patient was seen and examined by me, agrees the above note by phlebotomist medical lab assistant. The patient's family member was at bedside - patient is relatively nonverbal. He requires a lot of help by his parent. This is a young patient who unfortunately has a history of very severe autism. On top of this he also has a history of rheumatoid arthritis as well as psoriasis affecting the his upper body. He was brought here last week by family member due to what appeared to be cellulitis of his large remedies and he's been on IV antibiotics. The cellulitis appears to have been improved according to the staff that have been taking care of him last week as well as with the parents. However sometime over the weekend he developed a very severe erythema and it appears that he had allergic reaction to one of the IV antibiotics. He's been getting IV Solu-Medrol. Today is my first day seeing him in him being told that it looks much better than previously. Because of his history of rheumatoid arthritis we advised the patient's family member that he ought to try to see pole shaver helper available at a larger university setting. So there is a rehabilitation available at [facility]. He should go home with additional tablets of prednisone that she be tapered off over some time. Thank you very much, Flynn Smith
[2017-02-27 16:53] VITALS: BP 134/58; PULSE 100; TEMP 97.4; O2SAT 97
== END 2017-02-27 18:20 | DRG 690 ==
LOC: C.ER 11:09 → C.9E 13:59 → C.3T 15:51 → C.5S 02-21 08:54
PROVIDERS: ADMIT Internal Medicine; ATTEND Internal Medicine
DX: N39.0 Urinary tract infection, site not specified (principal); L03.115 Cellulitis of right lower limb; L03.116 Cellulitis of left lower limb; F84.0 Autistic disorder; B37.0 Candidal stomatitis; E10.22 Type 1 diabetes mellitus with diabetic chronic kidney disease; L40.50 Arthropathic psoriasis, unspecified; E78.00 Pure hypercholesterolemia, unspecified; I12.9 Hypertensive chronic kidney disease with stage 1 through stage 4 chronic kidney disease, or unspecified chronic kidney disease; I51.7 Cardiomegaly; J45.909 Unspecified asthma, uncomplicated; K21.9 Gastro-esophageal reflux disease without esophagitis; N18.9 Chronic kidney disease, unspecified; M19.90 Unspecified osteoarthritis, unspecified site; M06.9 Rheumatoid arthritis, unspecified; Z87.440 Personal history of urinary (tract) infections; Z74.01 Bed confinement status; Z79.4 Long term (current) use of insulin; Z87.442 Personal history of urinary calculi; Z88.1 Allergy status to other antibiotic agents

== ENCOUNTER 2018-05-08 19:59 | Inpatient (IN) | payer OTHER ==
[2018-05-08 19:59] VITALS: BMI 25.7
[2018-05-08 22:20] LABS: BASO # 0.1 K/uL (0.0-0.2); BASO % 0.4 % (0.0-2.0); EOS # 0.2 K/uL (0.0-0.7); EOS % 0.7 % (0.0-4.0); HEMOGLOBIN 12.4 g/dL (12.0-18.0); LYMPH # 2.1 K/uL (1.0-4.3); LYMPH % 8.7 % (20.0-40.0); MEAN CORPUSCULAR HEMOGLOBIN 26.6 pg (27.0-31.0); MEAN CORPUSCULAR HGB CONC 31.5 g/dL (33.0-37.0); MEAN PLATELET VOLUME 6.9 fL (7.2-11.7); MONO # 1.4 K/uL (0.0-0.8); MONO % 5.8 % (0.0-10.0); NEUT # 20.6 K/uL (1.8-7.0); NEUT % 84.4 % (50.0-75.0); PLATELET COUNT 602 K/uL (130-400); RBC 4.67 Mil/uL (4.40-5.90); RED CELL DISTRIBUTION WIDTH 19.2 % (11.5-14.5); WHITE BLOOD COUNT 24.4 K/uL (4.8-10.8)
[2018-05-08 22:24] LABS: URINE BACTERIA RARE (<OCC); URINE BILIRUBIN NEGATIVE (NEGATIVE); URINE BLOOD 3+ (NEGATIVE); URINE CLARITY Hazy (Clear); URINE COLOR Yellow (YELLOW); URINE GLUCOSE (UA) NORMAL (Normal); URINE LEUKOCYTE ESTERASE 2+ Leu/uL (Negative); URINE PROTEIN NEGATIVE (NEGATIVE); URINE UROBILINOGEN NORMAL mg/dL (0.2-1.0)
[2018-05-08 22:34] LABS: ALB/GLOB RATIO 1.1 (1.0-2.1); ALBUMIN 3.7 g/dL (3.5-5.0); AST/SGOT 13 U/L (17-59); BLOOD UREA NITROGEN 6 mg/dL (9-20); CALCIUM 9.2 mg/dl (8.6-10.4); GFR NON-AFRICAN AMERICAN > 60; LIPASE 154 U/L (23-300)
[2018-05-08 22:36] LABS: MEAN CELL VOLUME 84.4 fL (80.0-94.0)
[2018-05-08 22:37] LABS: ALT/SGPT < 6 U/L (21-72)
[2018-05-08] MEDS ORDERED: Iodixanol 320 MG/ML 100 ML BOTTLE IV ONE (23:09)
[2018-05-08 23:31] LABS: BANDS 3 % (0-2); EOSINOPHIL 3 % (0-4); LYMPHOCYTE 9 % (20-40); MONOCYTE 4 % (0-10); NEUTROPHIL 81 % (50-75); PLATELET ESTIMATE MARKEDLY DECREASED (NORMAL); TOTAL CELLS COUNTED 100
--- NOTE | 2018-05-08 23:43 | C.PDOC ---
History Of Present Illness 33 year old male, with history of mental delay (non-verbal), psoriasis, and urinary tract infections (currently undergoing treatment with Macrobid) is brought to the ED by family for evaluation after patient developed increased redness to his skin and was noted to be shaking earlier today. Additional information is limited secondary to patient's non-verbal status. <Pietro Corado - Last Filed: 05/09/18 00:16> History Per: Family History/Exam Limitations: other (mental delay, non-verbal ) Onset/Duration Of Symptoms: Hrs Current Symptoms Are (Timing): Still Present Possible Cause: Unknown Additional History Per: Family <Pietro Corado - Last Filed: 05/09/18 00:16> <Daryl Light - Last Filed: 05/09/18 01:13> Time Seen by Provider: 05/08/18 21:21 Chief Complaint (Nursing): Allergic Reaction Past Medical History Reviewed: Historical Data, Nursing Documentation, Vital Signs Vital Signs: Last Vital Signs Temp 98.5 F 05/08/18 20:17 Pulse 92 H 05/08/18 20:17 Resp 20 05/08/18 20:17 BP 135/83 05/08/18 20:17 Pulse Ox 99 05/08/18 20:17 - Medical History PMH: Anemia, Anxiety, Arthritis, Asthma, Diabetes, Graves' Disease, HTN, Hypercholesterolemia, Kidney Stones, Chronic Kidney Disease, Rheumatoid Arthritis Surgical History: No Surg Hx - [facility] Procedures CIRCUMCISION (04/23/14) DX ULTRASOUND-HEART (03/25/14) INFLUENZA VACCINATION (02/12/14) VACCINATION NEC (02/12/14) VENOUS CATHETERIZATION NEC (04/23/14) Family History: States: Unknown Family Hx - Social History Hx Tobacco Use: No Hx Alcohol Use: No Hx Substance Use: No - Immunization History Hx Tetanus Toxoid Vaccination: Yes Hx Influenza Vaccination: Yes Hx Pneumococcal Vaccination: Yes <Pietro Corado - Last Filed: 05/09/18 00:16> Vital Signs: Last Vital Signs Temp 98.5 F 05/08/18 20:17 Pulse 95 H 05/08/18 22:30 Resp 18 05/08/18 22:30 BP 138/80 05/08/18 22:30 Pulse Ox 99 05/09/18 00:17 - [facility] Procedures CIRCUMCISION (04/23/14) DX ULTRASOUND-HEART (03/25/14) INFLUENZA VACCINATION (02/12/14) VACCINATION NEC (02/12/14) VENOUS CATHETERIZATION NEC (04/23/14) <Daryl Light - Last Filed: 05/09/18 01:13> Review Of Systems Review Of Systems: ROS cannot be obtained secondary to pt's inabilty to answer questions. <Pietro Corado - Last Filed: 05/09/18 00:16> Physical Exam - Physical Exam Appears: Non-toxic, No Acute Distress Skin: Warm, Dry, Other (diffuse psoriasis with increased erythema. no sloughing of skin, no gross abscesses, no focal cellulitis ) Head: Atraumatic, Normacephalic Eye(s): bilateral: Normal Inspection Oral Mucosa: Moist Neck: Supple Chest: Symmetrical, No Deformity, No Tenderness Cardiovascular: Rhythm Regular, No Murmur Respiratory: Normal Breath Sounds, No Rales, No Rhonchi, No Wheezing Gastrointestinal/Abdominal: Soft, Tenderness (suprapubic/lower abdominal regions ), No Guarding, No Rebound Extremity: Normal ROM, Capillary Refill (less than 2 seconds ) Neurological/Psych: Other (awake, alert and acting appropriate to baseline (as per family)) <Pietro Corado M - Last Filed: 05/09/18 00:16> ED Course And Treatment - Laboratory Results Result Diagrams: 05/08/18 22:10 05/08/18 22:10 Lab Results: Total Bilirubin 0.2 mg/dL (0.2-1.3) 05/08/18 22:10 AST 13 U/L (17-59) L D 05/08/18 22:10 ALT < 6 U/L (21-72) L D 05/08/18 22:10 Alkaline Phosphatase 162 U/L (38-126) H 05/08/18 22:10 Total Protein 7.1 g/dL (6.3-8.3) 05/08/18 22:10 Albumin 3.7 g/dL (3.5-5.0) 05/08/18 22:10 Globulin 3.4 gm/dL (2.2-3.9) 05/08/18 22:10 Albumin/Globulin Ratio 1.1 (1.0-2.1) 05/08/18 22:10 Lipase 154 U/L (23-300) 05/08/18 22:10 Urine Color Yellow (YELLOW) 05/08/18 22:10 Urine Clarity Hazy (Clear) 05/08/18 22:10 Urine pH 5.0 (5.0-8.0) 05/08/18 22:10 Ur Specific [place] 1.016 (1.003-1.030) 05/08/18 22:10 Urine Protein Negative mg/dL (NEGATIVE) 05/08/18 22:10 Urine Glucose (UA) Normal mg/dL (Normal) 05/08/18 22:10 Urine Ketones Negative mg/dL (NEGATIVE) 05/08/18 22:10 Urine Blood 3+ (NEGATIVE) H 05/08/18 22:10 Urine Nitrate Negative (NEGATIVE) 05/08/18 22:10 Urine Bilirubin Negative (NEGATIVE) 05/08/18 22:10 Urine Urobilinogen Normal mg/dL (0.2-1.0) 05/08/18 22:10 Ur Leukocyte Esterase 2+ Sima/uL (Negative) H 05/08/18 22:10 Urine WBC (Auto) 23 /hpf (0-5) H 05/08/18 22:10 Urine RBC (Auto) 235 /hpf (0-3) H 05/08/18 22:10 Urine Bacteria Rare (<OCC) 05/08/18 22:10 Hyaline Casts 3-5 /lpf (0-2) H 05/08/18 22:10 O2 Sat by Pulse Oximetry: 99 (on RA) Pulse Ox Interpretation: Normal <Pietro Corado M - Last Filed: 05/09/18 00:16> - Laboratory Results Result Diagrams: 05/08/18 22:10 05/08/18 22:10 Lab Results: Total Bilirubin 0.2 mg/dL (0.2-1.3) 05/08/18 22:10 AST 13 U/L (17-59) L D 05/08/18 22:10 ALT < 6 U/L (21-72) L D 05/08/18 22:10 Alkaline Phosphatase 162 U/L (38-126) H 05/08/18 22:10 Total Protein 7.1 g/dL (6.3-8.3) 05/08/18 22:10 Albumin 3.7 g/dL (3.5-5.0) 05/08/18 22:10 Globulin 3.4 gm/dL (2.2-3.9) 05/08/18 22:10 Albumin/Globulin Ratio 1.1 (1.0-2.1) 05/08/18 22:10 Lipase 154 U/L (23-300) 05/08/18 22:10 Urine Color Yellow (YELLOW) 05/08/18 22:10 Urine Clarity Hazy (Clear) 05/08/18 22:10 Urine pH 5.0 (5.0-8.0) 05/08/18 22:10 Ur Specific [place] 1.016 (1.003-1.030) 05/08/18 22:10 Urine Protein Negative mg/dL (NEGATIVE) 05/08/18 22:10 Urine Glucose (UA) Normal mg/dL (Normal) 05/08/18 22:10 Urine Ketones Negative mg/dL (NEGATIVE) 05/08/18 22:10 Urine Blood 3+ (NEGATIVE) H 05/08/18 22:10 Urine Nitrate Negative (NEGATIVE) 05/08/18 22:10 Urine Bilirubin Negative (NEGATIVE) 05/08/18 22:10 Urine Urobilinogen Normal mg/dL (0.2-1.0) 05/08/18 22:10 Ur Leukocyte Esterase 2+ Sima/uL (Negative) H 05/08/18 22:10 Urine WBC (Auto) 23 /hpf (0-5) H 05/08/18 22:10 Urine RBC (Auto) 235 /hpf (0-3) H 05/08/18 22:10 Urine Bacteria Rare (<OCC) 05/08/18 22:10 Hyaline Casts 3-5 /lpf (0-2) H 05/08/18 22:10 - CT Scan/US CT A/P Other Rad Studies (CT/US): Read By Radiologist, Radiology Report Reviewed CT/US Interpretation: EXAM: CT Abdomen and Pelvis with IV contrast. CLINICAL HISTORY: Difused abd pain. TECHNIQUE: Axial computed tomography images of the abdomen and pelvis with intravenous contrast. CONTRAST: With intravenous contrast. COMPARISON: None provided. FINDINGS: LUNG BASES: The visualized heart is mildly enlarged. Minimal atelectasis the lung bases. LIVER: Unremarkable. GALLBLADDER AND BILE DUCTS: The gallbladder appears within normal limits. No radioopaque gallstones are seen. No biliary ductal dilatation is evident. PANCREAS: Unremarkable. SPLEEN: Unremarkable. ADRENAL GLANDS: Unremarkable. KIDNEYS, URETERS, AND BLADDER: There is a right pelvic kidney. This demonstrates a staghorn type calculus in the collecting system. Additionally there are a few subcentimeter hypodensities in the right pelvic kidney which are too small to adequately characterize. No convincing evidence for jorge alberto hydronephrosis or obstructive uropathy. Left kidney appears essentially unremarkable. Bladder is decompressed. STOMACH AND BOWEL: Stomach is decompressed. No evidence for bowel obstruction. APPENDIX: There is a normal appendix in the right lower quadrant. PERITONEUM: No pneumoperitoneum. No ascites. LYMPH NODES: No lymphadenopathy. REPRODUCTIVE: Unremarkable as visualized. VASCULATURE: No evidence of abdominal aortic aneurysm. BONES: There are moderate multilevel degenerative spine changes. There is diffuse osteopenia. IMPRESSION: 1. The visualized heart is mildly enlarged. 2. Minimal atelectasis the lung bases. 3. There is a right pelvic kidney. This demonstrates a staghorn type calculus in the collecting system. Additionally there are a few subcentimeter hypodensities in the right pelvic kidney which are too small to adequately characterize. No convincing evidence for jorge alberto hydronephrosis or obstructive uropathy. 4. Additional and incidental findings as described, please see comments. <Daryl Light - Last Filed: 05/09/18 01:13> Medical Decision Making Medical Decision Making: Assessment: UTI, leukocytosis, rash Plan: * bloodwork * urinalysis * CT A/P * Solu-Medrol IV * reassess and disposition Progress: Bloodwork, urinalysis, CT A/P ordered and reviewed. Solu-Medrol IV given. Consult placed to Dr. Placido Cazares (Infectious Disease bond writer). Pending CT scan results and hospital admission. <Pietro Corado - Last Filed: 05/09/18 00:16> Disposition Discussed With : Olman Bermudez Doctor Will See Patient In The: Hospital Counseled Patient/Family Regarding: Studies Performed, Diagnosis - Disposition Disposition Time: 00:17 <Pietro Corado - Last Filed: 05/09/18 00:16> <Daryl Light Last Filed: 05/09/18 01:13> - Disposition Disposition: HOSPITALIZED Condition: FAIR - Clinical Impression Clinical Impression: Allergic reaction, Leukocytosis, UTI (urinary tract infection) - Scribe Statement The provider has reviewed the documentation as recorded by the Scribe (Yolie Landis) Provider Attestation: All medical record entries made by the Scribe were at my direction and personally dictated by me. I have reviewed the chart and agree that the record accurately reflects my personal performance of the history, physical exam, medical decision making, and the department course for this patient. I have also personally directed, reviewed, and agree with the discharge instructions and disposition. <Pietro Corado M - Last Filed: 05/09/18 00:16>
--- NOTE | 2018-05-09 01:40 | CP.PCM.HP ---
<Jhonny Rai - Last Filed: 05/09/18 05:58> History of Present Illness - History of Present Illness History of Present Illness: PGY1 H&P for medicine Hospitalist CC: redness to the entire body This is Patient is a 33 year old male who is nonverbal with a history of autism, asthma, HTN, NIDDM2, chronic UTIs, chronic nephrolithiasis, psoriasis, and rheumatoid arthritis, presents to the ED with his parents (Gerardo- Father, poor historian) with the complaint of worsening redness to the entire body after starting Bactrim for a UTI. father reports that the patient had a UA positive for UTI at home administered by PMD's GUT SNATCHER (he has regular UAs due to chronic UTIs and nonverbal status) and Bactrim was started because he was told that "this is the only medication that helps this bacteria." Bactrim was started on approximately 05/03/18, and the redness to the body developed 2-3 days after taking the medication. Father contacted the PMD, who prescribed Prednisone 10 mg PO BID, which he has been taking for the past 3 days. father reports that he stopped giving the Bactrim yesterday, 05/07/18. Father endorses 1 episode of dark, "brown" urine 2 days ago. Father denies fever, complaints of pain, diarrhea, vomiting. Pt has no urinary or bowel incontinence, and can relay a need to use the bathroom as per father. PMD: Dr. Hsu Service Department Manager: Dr. Roger EMR reviewed: PMH: autism, asthma, HTN, NIDDM2, chronic UTI, chronic nephrolithiasis, psoriasis, and RA PSH: circumcision 2014 (for chronic UTI) FHx: Aunt- breast cancer; grandparents- DM, HTN, [place] SHx: denies tobacco, alcohol, and drug use; Lives with parents at home (Darrell- Mother, Gerardo- Father) Patient has been bed bound for the past three years due to worsening RA and psoriasis. As per the father, the patient keeps his left leg bent at 90 degrees and cannot extend due to pain, however the right lower extremity has more mobility. Allergies: ciprofloxacin, pipercillin, tetracyclines, tazobactam, PCN, trimethoprim, sulfamethoxazole Medications: multiple, please see EMR Present on Admission - Present on Admission Any Indicators Present on Admission: No Review of Systems - Review of Systems Systems not reviewed;Unavailable: Other (autism, history obtained from father) All systems: reviewed and no additional remarkable complaints except (as per HPI) Past Patient History - Infectious Disease Hx of Infectious Diseases: None - Past Medical History & Family History Past Medical History?: Yes - Past Social History Smoking Status: Never Smoked - CARDIAC Hx Hypercholesterolemia: Yes Hx Hypertension: Yes - PULMONARY Hx Asthma: Yes - NEUROLOGICAL Hx Neurological Disorder: Yes Other/Comment: autism - HEENT Hx HEENT Problems: No - RENAL Hx Chronic Kidney Disease: Yes Hx Kidney Stones: Yes - ENDOCRINE/METABOLIC Hx Diabetes Mellitus Type 1: Yes Hx Diabetes Mellitus Type 2: Yes - HEMATOLOGICAL/ONCOLOGICAL Hx Anemia: Yes - INTEGUMENTARY Hx Dermatological Problems: Yes Hx Psoriasis: Yes - MUSCULOSKELETAL/RHEUMATOLOGICAL Hx Arthritis: Yes Hx Rheumatoid Arthritis: Yes - GASTROINTESTINAL Hx Gastrointestinal Disorders: Yes Hx Gastroesophageal Reflux: Yes - GENITOURINARY/GYNECOLOGICAL Hx Genitourinary Disorders: Yes Hx Urinary Tract Infection: Yes - PSYCHIATRIC Hx Anxiety: Yes Hx Substance Use: No - SURGICAL HISTORY Hx Surgeries: Yes Other/Comment: H/O Venous catheterization,Circumcision last Apr 2014 - ANESTHESIA Hx Anesthesia: Yes Hx Anesthesia Reactions: No Hx Malignant Hyperthermia: No Meds Allergies/Adverse Reactions: Allergies Allergy/AdvReac Type Severity Reaction Status Date / Time ciprofloxacin [From Cipro] Allergy Severe URTICARIA Verified 05/08/18 20:22 ciprofloxacin HCl Allergy Severe URTICARIA Verified 05/08/18 20:22 [From Cipro] piperacillin sodium Allergy Severe URTICARIA Verified 05/08/18 20:22 [From Zosyn] sulfamethoxazole Allergy Severe URTICARIA Verified 05/08/18 20:22 [From Bactrim] tazobactam sodium Allergy Severe URTICARIA Verified 05/08/18 20:22 [From Zosyn] tetracycline Allergy Severe URTICARIA Verified 05/08/18 20:22 trimethoprim [From Bactrim] Allergy Severe URTICARIA Verified 05/08/18 20:22 Penicillins Allergy URTICARIA Verified 05/08/18 20:22 Physical Exam - Constitutional Appears: Non-toxic, No Acute Distress - Back Exam Back exam: absent: CVA tenderness (L), CVA tenderness (R) - Additional Findings Additional findings: - Head Exam Head Exam: NORMOCEPHALIC, atraumatic Additional comments: Psoriatic plaques with nontender erythema to the scalp and face - Eye Exam Eye Exam: EOMI, Normal appearance - ENT Exam ENT Exam: Mucous Membranes Moist, no mucous membrane involvement of sloughing. - Respiratory Exam Respiratory Exam: Decreased Breath Sounds bilateral bases, Clear to Auscultation Bilateral, NORMAL BREATHING PATTERN. absent: Rhonchi, Wheezes, Respiratory Distress, stridor - Cardiovascular Exam Cardiovascular Exam: REGULAR RHYTHM, +S1, +S2. tachycardia at approximately 90. No murmurs. 2+ pulses in bilateral upper and lower distal extremities. <2 second capillary refill. - GI/Abdominal Exam GI & Abdominal Exam: Normal Bowel Sounds, Soft. No suprapubic tenderness. absent: Distended, Firm, Guarding, Mass, Tenderness - Extremities Exam Extremities exam: Positive for: joint swelling (Left knee is flexed to 90 degrees, and painful on manipulation. Decreased extension secondary to presumed pain. Pedal edema (left greater than right). Excoriations to the lower extremities in scratching pattern. - Neurological Exam Neurological exam: Alert, Altered - Psychiatric Exam Additional comments: Pt nonverbal secondary to autism - Skin Additional comments: Psoriatic scales diffusely, with tender areas of diffuse blanching erythema and healing skin sloughing. No active skin sloughing on traction. Results - Vital Signs Recent Vital Signs: Last Vital Signs Temp 98.5 F 05/08/18 20:17 Pulse 95 H 05/08/18 22:30 Resp 18 05/08/18 22:30 BP 138/80 05/08/18 22:30 Pulse Ox 99 05/09/18 00:17 - Labs Result Diagrams: 05/08/18 22:10 05/08/18 22:10 Labs: Laboratory Results - last 24 hr 05/08/18 05/08/18 05/08/18 20:30 22:10 22:10 WBC 24.4 H D RBC 4.67 Hgb 12.4 Hct 39.4 MCV 84.4 D MCH 26.6 L MCHC 31.5 L RDW 19.2 H Plt Count 602 H MPV 6.9 L Neut % (Auto) 84.4 H Lymph % (Auto) 8.7 L Ross % (Auto) 5.8 Eos % (Auto) 0.7 Baso % (Auto) 0.4 Neut # (Auto) 20.6 H Lymph # (Auto) 2.1 Ross # (Auto) 1.4 H Eos # (Auto) 0.2 Baso # (Auto) 0.1 Neutrophils % (Manual) 81 H Band Neutrophils % 3 H Lymphocytes % (Manual) 9 L Monocytes % (Manual) 4 Eosinophils % (Manual) 3 Platelet Estimate Markedly decreased L Sodium Potassium Chloride Carbon Dioxide Anion Gap BUN Creatinine Est GFR ( Amer) Est GFR (Non-Af Amer) POC Glucose (mg/dL) 166 H Random Glucose Calcium Total Bilirubin AST ALT Alkaline Phosphatase Total Protein Albumin Globulin Albumin/Globulin Ratio Lipase Urine Color Yellow Urine Clarity Hazy Urine pH 5.0 Ur Specific [place] 1.016 Urine Protein Negative Urine Glucose (UA) Normal Urine Ketones Negative Urine Blood 3+ H Urine Nitrate Negative Urine Bilirubin Negative Urine Urobilinogen Normal Ur Leukocyte Esterase 2+ H Urine WBC (Auto) 23 H Urine RBC (Auto) 235 H Urine Bacteria Rare Hyaline Casts 3-5 H 05/08/18 22:10 WBC RBC Hgb Hct MCV MCH MCHC RDW Plt Count MPV Neut % (Auto) Lymph % (Auto) Ross % (Auto) Eos % (Auto) Baso % (Auto) Neut # (Auto) Lymph # (Auto) Ross # (Auto) Eos # (Auto) Baso # (Auto) Neutrophils % (Manual) Band Neutrophils % Lymphocytes % (Manual) Monocytes % (Manual) Eosinophils % (Manual) Platelet Estimate Sodium 137 Potassium 3.8 Chloride 102 Carbon Dioxide 25 Anion Gap 14 BUN 6 L Creatinine 0.5 L Est GFR ( Amer) > 60 Est GFR (Non-Af Amer) > 60 POC Glucose (mg/dL) Random Glucose 110 D Calcium 9.2 Total Bilirubin 0.2 AST 13 L D ALT < 6 L D Alkaline Phosphatase 162 H Total Protein 7.1 Albumin 3.7 Globulin 3.4 Albumin/Globulin Ratio 1.1 Lipase 154 Urine Color Urine Clarity Urine pH Ur Specific [place] Urine Protein Urine Glucose (UA) Urine Ketones Urine Blood Urine Nitrate Urine Bilirubin Urine Urobilinogen Ur Leukocyte Esterase Urine WBC (Auto) Urine RBC (Auto) Urine Bacteria Hyaline Casts Assessment & Plan - Assessment and Plan (Free Text) Assessment: This is Patient is a 33 year old male who is nonverbal with a history of autism, asthma, HTN, NIDDM2, chronic UTIs, chronic nephrolithiasis, psoriasis, and rhe umatoid arthritis, presents to the ED with his parents (Jaxonma- Father, poor historian) with the complaint of worsening redness to the entire body after starting Bactrim for a UTI. Plan: Erythematous rash; differential includes drug reaction, infection, worsening of psoriasis Pt received Solumedrol 125 mg IVP in the ED Pt afebrile, hemodynamically stable and without respiratory distress Continue to monitor F/u procalcitonin, blood cultures F/u with Dr. Cazares's recommendations. (consulted by ED physician) Leukocytosis, likely secondary to outpatient steroid treatment Pt is afebrile, no eosinophilia Continue to monitor Abnormal UTI, possible secondary to longstanding staghorn calculus Patient has history of kidney stones and recurrent UTIs. UA shows luekocytes esterase 2+, 23 WBCs, pt may be colonized as father denies any symptoms currently Abdominal/Pelvic CT with IV contrast shows Right pelvic kidney, staghorn type calculus. No obstructive uropathy, or hydronephrosis. Prior Abd/Pelv CT scan from 2014 reviewed, which shows similar right kidney stone. F/u urine culture Hx of Psoriasis Suspected psoriatic arthritis or anklyosing spondylitis Bedbound for the past 3 years Abd/Pelv Ct shows calcification of lumbar membranes Continue home meds, hold topical steroids until case discussed with pt's journalists and other writers: Dr. Roger VTE ppx with heparin Hx Autism disorder Continue home meds Father is at bedside and able to communicate well with the pt Pt is not aggressive during admission Hx of HTN Continue home Losartan 100 mg PO daily, Norvasc 5 mg PO daily Continue to monitor BP Hx of NIDDM2 Continue metformin 500 mg PO BID Accucheck ACHS F/u HgbA1c Prophylaxis: VTE with Heparin 5000 units q8h GI ppx with pepcid 20 mg PO BID PT/OT eval Case was discussed with attending physician, Dr. Aidan Rai PGY1 <Olman Bermudez P - Last Filed: 05/09/18 08:20> Results - Vital Signs Recent Vital Signs: Last Vital Signs Temp 98.4 F 05/09/18 01:41 Pulse 88 05/09/18 02:43 Resp 20 05/09/18 01:41 BP 126/78 05/09/18 01:41 Pulse Ox 100 05/09/18 02:43 - Labs Result Diagrams: 05/08/18 22:10 05/08/18 22:10 Labs: Laboratory Results - last 24 hr 05/08/18 05/08/18 05/08/18 20:30 22:10 22:10 WBC 24.4 H D RBC 4.67 Hgb 12.4 Hct 39.4 MCV 84.4 D MCH 26.6 L MCHC 31.5 L RDW 19.2 H Plt Count 602 H MPV 6.9 L Neut % (Auto) 84.4 H Lymph % (Auto) 8.7 L Ross % (Auto) 5.8 Eos % (Auto) 0.7 Baso % (Auto) 0.4 Neut # (Auto) 20.6 H Lymph # (Auto) 2.1 Ross # (Auto) 1.4 H Eos # (Auto) 0.2 Baso # (Auto) 0.1 Neutrophils % (Manual) 81 H Band Neutrophils % 3 H Lymphocytes % (Manual) 9 L Monocytes % (Manual) 4 Eosinophils % (Manual) 3 Platelet Estimate Markedly decreased L Sodium Potassium Chloride Carbon Dioxide Anion Gap BUN Creatinine Est GFR ( Amer) Est GFR (Non-Af Amer) POC Glucose (mg/dL) 166 H Random Glucose Calcium Total Bilirubin AST ALT Alkaline Phosphatase Total Protein Albumin Globulin Albumin/Globulin Ratio Lipase Urine Color Yellow Urine Clarity Hazy Urine pH 5.0 Ur Specific [place] 1.016 Urine Protein Negative Urine Glucose (UA) Normal Urine Ketones Negative Urine Blood 3+ H Urine Nitrate Negative Urine Bilirubin Negative Urine Urobilinogen Normal Ur Leukocyte Esterase 2+ H Urine WBC (Auto) 23 H Urine RBC (Auto) 235 H Urine Bacteria Rare Hyaline Casts 3-5 H 05/08/18 05/09/18 22:10 07:19 WBC RBC Hgb Hct MCV MCH MCHC RDW Plt Count MPV Neut % (Auto) Lymph % (Auto) Ross % (Auto) Eos % (Auto) Baso % (Auto) Neut # (Auto) Lymph # (Auto) Ross # (Auto) Eos # (Auto) Baso # (Auto) Neutrophils % (Manual) Band Neutrophils % Lymphocytes % (Manual) Monocytes % (Manual) Eosinophils % (Manual) Platelet Estimate Sodium 137 Potassium 3.8 Chloride 102 Carbon Dioxide 25 Anion Gap 14 BUN 6 L Creatinine 0.5 L Est GFR ( Amer) > 60 Est GFR (Non-Af Amer) > 60 POC Glucose (mg/dL) 261 H Random Glucose 110 D Calcium 9.2 Total Bilirubin 0.2 AST 13 L D ALT < 6 L D Alkaline Phosphatase 162 H Total Protein 7.1 Albumin 3.7 Globulin 3.4 Albumin/Globulin Ratio 1.1 Lipase 154 Urine Color Urine Clarity Urine pH Ur Specific [place] Urine Protein Urine Glucose (UA) Urine Ketones Urine Blood Urine Nitrate Urine Bilirubin Urine Urobilinogen Ur Leukocyte Esterase Urine WBC (Auto) Urine RBC (Auto) Urine Bacteria Hyaline Casts Attending/Attestation - Attestation I have personally seen and examined this patient.: Yes I have fully participated in the care of the patient.: Yes I have reviewed all pertinent clinical information: Yes Notes (Text): 05/09/18 08:16 Worsening skin rash with DD of worsening psoriatic rash/erythroderma, secondary infection, skin reaction due to abx, H/o autism, bed bound Staghorn calculus, hence chronic ureteric inflammation suspected Leucocytosis due to 1 vs recent steroid use Plan Procalcitonin Watch for fever Contact pts rhematologist Will discuss the primary pt's physician if antibiotic coverage needed. See orders for detail.
[2018-05-09 01:41] VITALS: RESP 20
[2018-05-09] MEDS ORDERED: Hydrocortisone 1% Cream (30 GM) TOP PRN (02:18)
--- NOTE | 2018-05-09 09:26 | RAD ---
Date of service: 05/08/2018 HISTORY: chills COMPARISON: Portable chest 02/20/2017. FINDINGS: LUNGS: No active pulmonary disease. PLEURA: No significant pleural effusion identified, no pneumothorax apparent. CARDIOVASCULAR: No aortic atherosclerotic calcification present. Stable mild cardiomegaly. No pulmonary vascular congestion. OSSEOUS STRUCTURES: No significant abnormalities. VISUALIZED UPPER ABDOMEN: Normal. OTHER FINDINGS: None. IMPRESSION: Stable cardiomegaly. No interval cardiopulmonary disease appreciable.
[2018-05-09] MEDS ORDERED: DiphenhydrAMINE 50 mg/ml Inj IVP PRN (10:43)
--- NOTE | 2018-05-09 11:05 | CT ---
Date of service: 05/08/2018 PROCEDURE: CT Abdomen and Pelvis with contrast HISTORY: abd pain COMPARISON: CT abdomen and pelvis with IV contrast performed 04/26/14 TECHNIQUE: Contrast dose: 100 mL Visipaque 320 IV Radiation dose: Total exam DLP = 992.38 mGy-cm. This CT exam was performed using one or more of the following dose reduction techniques: Automated exposure control, adjustment of the mA and/or kV according to patient size, and/or use of iterative reconstruction technique. FINDINGS: LOWER THORAX: Minimal basilar atelectasis. No visible consolidation, pleural effusion, or pneumothorax. LIVER: Hepatomegaly. GALLBLADDER AND BILE DUCTS: Small 6 mm hyperdense rounded focus within the gallbladder presumably gallstone. PANCREAS: Unremarkable. SPLEEN: 10 mm probable splenule. Otherwise unremarkable. ADRENALS: The right adrenal gland is not seen. The left adrenal gland appears unremarkable. KIDNEYS AND URETERS: Right pelvic kidney. Staghorn type calculus exam the collecting system. Sub cm too small to characterize right renal hypodensities; statistically likely cysts. Punctate nonobstructing left renal calculi. Too small to characterize left renal hypodensity; statistically likely cysts. No hydronephrosis evident bilaterally. VASCULATURE: No aortic aneurysm. No significant atherosclerotic calcification identified. BOWEL: Stomach is nondistended. Lack of oral contrast limits evaluation for bowel pathology. Bowel loops appear within normal limits of caliber without evidence of obstruction. APPENDIX: No secondary signs of acute appendicitis. PERITONEUM: No significant free fluid. No definite free air. LYMPH NODES: No bulky adenopathy identified. BLADDER: Under distension of the urinary bladder limits evaluation. REPRODUCTIVE: Unremarkable. BONES: Osseous demineralization. Degenerative changes. T12 and L1 mild loss of vertebral body heights consistent with compression fracture deformities. Anterior bridging osteophyte L5-S1. OTHER FINDINGS: None. IMPRESSION: Small 6 mm hyperdense rounded focus within the gallbladder presumably gallstone. Right upper quadrant ultrasound suggested for further evaluation if indicated. Right pelvic kidney. Staghorn type calculus exam the collecting system. Sub cm too small to characterize right renal hypodensities; statistically likely cysts. Punctate nonobstructing left renal calculi. Too small to characterize left renal hypodensity; statistically likely cysts. No hydronephrosis evident bilaterally. Hepatomegaly. Additional findings as above. Preliminary impression was provided by [employer]. Study marked for PA review.
[2018-05-09] MEDS: (Novolin R) Insulin Human Regular 100 units/ml vial SC SCH ×3 (11:38→22:00)
[2018-05-09 14:20] LABS: HDL CHOLESTEROL 49 mg/dL (30-70)
[2018-05-09 14:30] LABS: LDL CHOLESTEROL 132 mg/dL (0-129)
[2018-05-09] MEDS ORDERED: Moxifloxacin IV 400mg/250ml NS 400 MG/250 ML BAG IVPB SCH (16:00)
[2018-05-10] MEDS: (Novolin R) Insulin Human Regular 100 units/ml vial SC SCH ×4 (08:36→21:22)
[2018-05-10 11:25] LABS: BASO # 0.1 K/uL (0.0-0.2); BASO % 0.4 % (0.0-2.0); EOS # 0.2 K/uL (0.0-0.7); EOS % 0.8 % (0.0-4.0); HEMOGLOBIN 12.6 g/dL (12.0-18.0); LYMPH # 3.5 K/uL (1.0-4.3); LYMPH % 14.9 % (20.0-40.0); MEAN CELL VOLUME 84.1 fL (80.0-94.0); MEAN CORPUSCULAR HEMOGLOBIN 26.7 pg (27.0-31.0); MEAN CORPUSCULAR HGB CONC 31.8 g/dL (33.0-37.0); MEAN PLATELET VOLUME 6.9 fL (7.2-11.7); MONO # 1.5 K/uL (0.0-0.8); MONO % 6.4 % (0.0-10.0); NEUT # 18.3 K/uL (1.8-7.0); NEUT % 77.5 % (50.0-75.0); RBC 4.71 Mil/uL (4.40-5.90); RED CELL DISTRIBUTION WIDTH 18.9 % (11.5-14.5); WHITE BLOOD COUNT 23.6 K/uL (4.8-10.8)
[2018-05-10 12:08] LABS: ALBUMIN 3.1 g/dL (3.5-5.0); ALT/SGPT 15 U/L (21-72); AST/SGOT 63 U/L (17-59); BLOOD UREA NITROGEN 16 mg/dL (9-20); CALCIUM 8.5 mg/dl (8.6-10.4); GFR NON-AFRICAN AMERICAN > 60
[2018-05-10 12:15] LABS: ALB/GLOB RATIO 1.1 (1.0-2.1)
--- NOTE | 2018-05-10 21:40 | CP.PCM.PN ---
Subjective - Date & Time of Evaluation Date of Evaluation: 05/10/18 Time of Evaluation: 10:40 - Subjective Subjective: dictated Objective - Vital Signs/Intake and Output Vital Signs (last 24 hours): Temp Pulse Resp BP Pulse Ox 97.8 F 87 20 128/75 98 05/10/18 16:00 05/10/18 16:00 05/10/18 16:00 05/10/18 17:49 05/10/18 16:00 Intake and Output: 05/10/18 05/11/18 18:59 06:59 Intake Total 780 Balance 780 - Medications Medications: Current Medications Acetaminophen (Tylenol 325mg Tab) 650 mg PO Q6 PRN PRN Reason: Fever >100.4 F Last Admin: 05/09/18 14:47 Dose: 650 mg Amlodipine Besylate (Norvasc) 5 mg PO DAILY [facility] Last Admin: 05/10/18 11:21 Dose: 5 mg Clobetasol Propionate (Temovate 0.05% Ointment) 1 applic TOP BID [facility] Last Admin: 05/10/18 17:53 Dose: 1 applic Dicyclomine HCl (Bentyl) 10 mg PO BID [facility] Last Admin: 05/10/18 17:49 Dose: 10 mg Diphenhydramine HCl (Benadryl) 25 mg PO Q6 PRN PRN Reason: Itching / Pruritus Last Admin: 05/09/18 19:10 Dose: 25 mg Docusate Sodium (Colace) 100 mg PO BID [facility] Last Admin: 05/10/18 17:48 Dose: 100 mg Famotidine (Pepcid) 20 mg PO BID [facility] Last Admin: 05/10/18 17:48 Dose: 20 mg Glimepiride (Amaryl) 1 mg PO DAILY [facility] Last Admin: 05/10/18 10:58 Dose: 1 mg Heparin Sodium (Porcine) (Heparin) 5,000 units SC Q12 [facility] Last Admin: 05/10/18 21:37 Dose: 5,000 units Influenza Virus Vaccine (Flucelvax Quad 2400-5986 Syr) 60 mcg IM .ONCE ONE Stop: 05/11/18 10:01 Insulin Human Regular (Novolin R) 0 unit SC [facility]; Protocol Last Admin: 05/10/18 21:22 Dose: Not Given Lisinopril (Zestril) 20 mg PO DAILY [facility] Last Admin: 05/10/18 10:58 Dose: 20 mg Metformin HCl (Glucophage) 500 mg PO BID [facility] Last Admin: 05/10/18 17:51 Dose: Not Given Metoprolol Tartrate (Lopressor) 25 mg PO BID [facility] Last Admin: 05/10/18 17:49 Dose: 25 mg Montelukast Sodium (Singulair) 10 mg PO DAILY [facility] Last Admin: 05/10/18 10:58 Dose: 10 mg Prednisone (Prednisone Tab) 10 mg PO DAILY [facility] Last Admin: 05/10/18 10:58 Dose: 10 mg - Labs Labs: 05/10/18 11:15 05/10/18 11:42
--- NOTE | 2018-05-11 03:23 | PN ---
DATE: 05/10/2018 SUBJECTIVE: The patient has extensive erythematous rash all over the body with desquamation. The patient's urine cultures are negative, although UA is positive for wbc. His leukocytosis is steroid induced. His high sugar is steroid induced. The patient has baseline mental status. No acute distress. No extra itching. No fever. No chills. PHYSICAL EXAMINATION: VITAL SIGNS: Blood pressure 128/75, pulse 87, respiratory rate 20, and temperature 97.8. LUNGS: Clear. CARDIOVASCULAR: S1, S2, and regular. ABDOMEN: Soft. SKIN: The patient has extensive erythema all over the skin with desquamation. ASSESSMENT: 1. Questionable urinary tract infection. The patient's high urine wbc could be from the skin as it looks like. It may not be a true infection; however, leukocyte esterase is positive, so we will consider giving antibiotics. 2. Allergic skin reaction to the drugs. 3. Dehydration. 4. Steroid-induced diabetes. PLAN: Continue current medication. Monitor the patient. John Brunson MD
[2018-05-11 07:16] LABS: BASO # 0.1 K/uL (0.0-0.2); BASO % 0.5 % (0.0-2.0); EOS # 0.2 K/uL (0.0-0.7); EOS % 0.8 % (0.0-4.0); HEMOGLOBIN 13.1 g/dL (12.0-18.0); LYMPH # 4.5 K/uL (1.0-4.3); MEAN CELL VOLUME 84.5 fL (80.0-94.0); MEAN CORPUSCULAR HEMOGLOBIN 26.6 pg (27.0-31.0); MEAN CORPUSCULAR HGB CONC 31.5 g/dL (33.0-37.0); MEAN PLATELET VOLUME 6.9 fL (7.2-11.7); MONO # 1.5 K/uL (0.0-0.8); MONO % 5.6 % (0.0-10.0); NEUT # 20.1 K/uL (1.8-7.0); NEUT % 76.1 % (50.0-75.0); NRBC % 0.1 % (0.0-2.0); RBC 4.91 Mil/uL (4.40-5.90); RED CELL DISTRIBUTION WIDTH 19.2 % (11.5-14.5); WHITE BLOOD COUNT 26.3 K/uL (4.8-10.8)
[2018-05-11 07:38] LABS: ALB/GLOB RATIO 1.1 (1.0-2.1); ALBUMIN 3.5 g/dL (3.5-5.0); ALT/SGPT 9 U/L (21-72); AST/SGOT 18 U/L (17-59); BLOOD UREA NITROGEN 12 mg/dL (9-20); GFR NON-AFRICAN AMERICAN > 60
[2018-05-11] MEDS: (Novolin R) Insulin Human Regular 100 units/ml vial SC SCH ×4 (08:28→22:49)
[2018-05-11] MEDS ORDERED: Influenza Vaccine 60 mcg/0.5 mL SYR (4YR UP) IM ONE (10:00)
[2018-05-11] MEDS ORDERED: Simethicone 80 mg Chewtab PO PRN (14:37)
--- NOTE | 2018-05-11 15:45 | CP.PCM.PN ---
Subjective - Date & Time of Evaluation Date of Evaluation: 05/11/18 Time of Evaluation: 15:45 - Subjective Subjective: PATIENT SEEN AND EXAMINED AT THE BEDSIDE Objective - Vital Signs/Intake and Output Vital Signs (last 24 hours): Temp Pulse Resp BP Pulse Ox 97.2 F L 98 H 20 134/80 97 05/11/18 08:00 05/11/18 08:00 05/11/18 08:00 05/11/18 09:17 05/11/18 08:00 Intake and Output: 05/11/18 05/11/18 06:59 18:59 Intake Total 480 500 Balance 480 500 - Medications Medications: Current Medications Acetaminophen (Tylenol 325mg Tab) 650 mg PO Q6 PRN PRN Reason: Fever >100.4 F Last Admin: 05/11/18 08:20 Dose: 650 mg Amlodipine Besylate (Norvasc) 5 mg PO DAILY [facility] Last Admin: 05/11/18 10:02 Dose: Not Given Clobetasol Propionate (Temovate 0.05% Ointment) 1 applic TOP BID [facility] Last Admin: 05/11/18 10:02 Dose: 1 applic Dicyclomine HCl (Bentyl) 10 mg PO BID [facility] Last Admin: 05/11/18 09:27 Dose: 10 mg Diphenhydramine HCl (Benadryl) 25 mg PO Q6 PRN PRN Reason: Itching / Pruritus Last Admin: 05/11/18 08:21 Dose: 25 mg Docusate Sodium (Colace) 100 mg PO BID [facility] Last Admin: 05/11/18 09:17 Dose: 100 mg Famotidine (Pepcid) 20 mg PO BID [facility] Last Admin: 05/11/18 09:17 Dose: 20 mg Glimepiride (Amaryl) 1 mg PO DAILY [facility] Last Admin: 05/11/18 09:27 Dose: Not Given Heparin Sodium (Porcine) (Heparin) 5,000 units SC Q12 [facility] Last Admin: 05/11/18 09:21 Dose: 5,000 units Insulin Human Regular (Novolin R) 0 unit SC ACHS [facility]; Protocol Last Admin: 05/11/18 12:00 Dose: 2 units Lisinopril (Zestril) 20 mg PO DAILY [facility] Last Admin: 05/11/18 09:18 Dose: 20 mg Metformin HCl (Glucophage) 500 mg PO BID [facility] Last Admin: 05/11/18 09:15 Dose: Not Given Metoprolol Tartrate (Lopressor) 25 mg PO BID [facility] Last Admin: 05/11/18 09:17 Dose: 25 mg Montelukast Sodium (Singulair) 10 mg PO DAILY [facility] Last Admin: 05/11/18 09:18 Dose: 10 mg Prednisone (Prednisone Tab) 10 mg PO DAILY [facility] Last Admin: 05/11/18 09:17 Dose: 10 mg Simethicone (Mylicon Chew Tab) 80 mg PO Q12H PRN PRN Reason: GI distress Last Admin: 05/11/18 15:16 Dose: 80 mg - Labs Labs: 05/11/18 07:00 05/11/18 07:00 Assessment and Plan - Assessment and Plan (Free Text) Assessment: FOLLOW UP WITH DR RUSSELL IN HIS OFFICE CONTINUE HOME MEDICATION ORDER NEW PRESCRIPTION GIVEN METOPROLOL/ LISINOPRIL/ COLACE / AND AMARYL ACTIVITY TOLERATED CALL DR RUSSELL OR GO TO THE EMERGENCY ROOM IF SYMPTOM RETURN OR WORSENING
[2018-05-11 16:03] VITALS: BP 127/81; PULSE 80; TEMP 98; O2SAT 98
--- NOTE | 2018-05-11 21:32 | CP.PCM.DIS ---
Provider - Provider Date of Admission: 05/09/18 00:16 Attending physician: John Brunson MD Time Spent in preparation of Discharge (in minutes): 30 Hospital Course - Lab Results Lab Results: Micro Results 05/09/18 06:00 Blood-Venous Blood Culture - Preliminary NO GROWTH AFTER 48 HOURS 05/09/18 06:15 Blood-Venous Blood Culture - Preliminary NO GROWTH AFTER 48 HOURS 05/08/18 22:10 Urine Random Urine Culture - Final No Growth (<1,000 CFU/ML) Most Recent Lab Values WBC 26.3 K/uL (4.8-10.8) H 05/11/18 07:00 RBC 4.91 Mil/uL (4.40-5.90) 05/11/18 07:00 Hgb 13.1 g/dL (12.0-18.0) 05/11/18 07:00 Hct 41.5 % (35.0-51.0) 05/11/18 07:00 MCV 84.5 fL (80.0-94.0) 05/11/18 07:00 MCH 26.6 pg (27.0-31.0) L 05/11/18 07:00 MCHC 31.5 g/dL (33.0-37.0) L 05/11/18 07:00 RDW 19.2 % (11.5-14.5) H 05/11/18 07:00 Plt Count 649 K/uL (130-400) H 05/11/18 07:00 MPV 6.9 fL (7.2-11.7) L 05/11/18 07:00 Neut % (Auto) 76.1 % (50.0-75.0) H 05/11/18 07:00 Lymph % (Auto) 17.0 % (20.0-40.0) L 05/11/18 07:00 [place] % (Auto) 5.6 % (0.0-10.0) 05/11/18 07:00 Eos % (Auto) 0.8 % (0.0-4.0) 05/11/18 07:00 Baso % (Auto) 0.5 % (0.0-2.0) 05/11/18 07:00 Neut # (Auto) 20.1 K/uL (1.8-7.0) H 05/11/18 07:00 Lymph # (Auto) 4.5 K/uL (1.0-4.3) H 05/11/18 07:00 [place] # (Auto) 1.5 K/uL (0.0-0.8) H 05/11/18 07:00 Eos # (Auto) 0.2 K/uL (0.0-0.7) 05/11/18 07:00 Baso # (Auto) 0.1 K/uL (0.0-0.2) 05/11/18 07:00 Neutrophils % (Manual) 81 % (50-75) H 05/08/18 22:10 Band Neutrophils % 3 % (0-2) H 05/08/18 22:10 Lymphocytes % (Manual) 9 % (20-40) L 05/08/18 22:10 Monocytes % (Manual) 4 % (0-10) 05/08/18 22:10 Eosinophils % (Manual) 3 % (0-4) 05/08/18 22:10 Differential Comment 05/10/18 11:15 Platelet Estimate Markedly decreased (NORMAL) L 05/08/18 22:10 Sodium 139 mmol/L (132-148) 05/11/18 07:00 Potassium 3.7 mmol/L (3.6-5.2) 05/11/18 07:00 Chloride 102 mmol/L (98-107) 05/11/18 07:00 Carbon Dioxide 27 mmol/L (22-30) 05/11/18 07:00 Anion Gap 14 (10-20) 05/11/18 07:00 BUN 12 mg/dL (9-20) 05/11/18 07:00 Creatinine 0.5 mg/dL (0.8-1.5) L 05/11/18 07:00 Est GFR ( Amer) > 60 05/11/18 07:00 Est GFR (Non-Af Amer) > 60 05/11/18 07:00 POC Glucose (mg/dL) 225 mg/dL (65-110) H 05/11/18 19:02 Random Glucose 138 mg/dL (75-110) H 05/11/18 07:00 Hemoglobin A1c 7.3 % (4.2-6.5) H 05/09/18 14:01 Calcium 9.0 mg/dl (8.6-10.4) 05/11/18 07:00 Phosphorus 3.4 mg/dL (2.5-4.5) 05/11/18 07:00 Magnesium 1.5 mg/dL (1.6-2.3) L 05/11/18 07:00 Total Bilirubin 0.2 mg/dL (0.2-1.3) 05/11/18 07:00 AST 18 U/L (17-59) 05/11/18 07:00 ALT 9 U/L (21-72) L D 05/11/18 07:00 Alkaline Phosphatase 142 U/L (38-126) H 05/11/18 07:00 Total Protein 6.7 g/dL (6.3-8.3) 05/11/18 07:00 Albumin 3.5 g/dL (3.5-5.0) 05/11/18 07:00 Globulin 3.2 gm/dL (2.2-3.9) 05/11/18 07:00 Albumin/Globulin Ratio 1.1 (1.0-2.1) 05/11/18 07:00 Triglycerides 189 mg/dL (0-149) H D 05/09/18 14:01 Cholesterol 202 mg/dL (0-199) H 05/09/18 14:01 LDL Cholesterol Direct 132 mg/dL (0-129) H 05/09/18 14:01 HDL Cholesterol 49 mg/dL (30-70) 05/09/18 14:01 Lipase 154 U/L (23-300) 05/08/18 22:10 Procalcitonin 0.23 NG/ML (0.19-0.49) 05/09/18 14:01 Urine Color Yellow (YELLOW) 05/08/18 22:10 Urine Clarity Hazy (Clear) 05/08/18 22:10 Urine pH 5.0 (5.0-8.0) 05/08/18 22:10 Ur Specific [place] 1.016 (1.003-1.030) 05/08/18 22:10 Urine Protein Negative mg/dL (NEGATIVE) 05/08/18 22:10 Urine Glucose (UA) Normal mg/dL (Normal) 05/08/18 22:10 Urine Ketones Negative mg/dL (NEGATIVE) 05/08/18 22:10 Urine Blood 3+ (NEGATIVE) H 05/08/18 22:10 Urine Nitrate Negative (NEGATIVE) 05/08/18 22:10 Urine Bilirubin Negative (NEGATIVE) 05/08/18 22:10 Urine Urobilinogen Normal mg/dL (0.2-1.0) 05/08/18 22:10 Ur Leukocyte Esterase 2+ Sima/uL (Negative) H 05/08/18 22:10 Urine WBC (Auto) 23 /hpf (0-5) H 05/08/18 22:10 Urine RBC (Auto) 235 /hpf (0-3) H 05/08/18 22:10 Urine Bacteria Rare (<OCC) 05/08/18 22:10 Hyaline Casts 3-5 /lpf (0-2) H 05/08/18 22:10 Discharge Plan - Discharge Medications Prescriptions: Glimepiride [Amaryl] 1 mg PO DAILY 30 Days tab Docusate [Colace] 100 mg PO BID 30 Days cap Metoprolol Tartrate [Lopressor] 25 mg PO BID 30 Days tab Lisinopril [Zestril] 20 mg PO DAILY 30 Days tab - Follow Up Plan Condition: FAIR Disposition: HOME/ ROUTINE Instructions: Docusate, Glimepiride, Lisinopril, Metoprolol, Urinary Tract Infection in Men (DC), Leukocytosis (DC) Additional Instructions: FOLLOW UP WITH DR BRUNSON IN HIS OFFICE CONTINUE HOME MEDICATION ORDER NEW PRESCRIPTION GIVEN METOPROLOL/ LISINOPRIL/ COLACE / AND AMARYL ACTIVITY TOLERATED CALL DR BRUNSON OR GO TO THE EMERGENCY ROOM IF SYMPTOM RETURN OR WORSENING Referrals: John Brunson MD [Staff Provider] -
--- NOTE | 2018-05-12 16:18 | DS ---
DISCHARGE DIAGNOSES: 1. Allergic drug rash. 2. Ruled out urinary tract infection. 3. Diabetes. 4. Dehydration. HISTORY OF PRESENT ILLNESS: This is a 33-year-old [place] Citizen male who has history of mental retardation, type 2 diabetes, not on any insulin, and he has history of multiple allergies to multiple drugs including majority of antibiotics. In his usual state of health, the patient is homebound and he is dependent on his family members for activities of daily living. He has been compliant. Family assisting with diet and medication and the patient came in because of questionable urinary tract infection and the patient was started on antibiotics in the field by a visiting nurse practitioner and the patient developed allergic reaction, he developed extensive rash, he was brought into emergency room, admitted, given steroids. Skin rash started improving. The patient had urine cultures which are negative. His leukocytosis are due to steroids. He is afebrile with no evidence of urinary tract infection. He is being discharged with outpatient followup. Condition upon discharge is stable. John Brunson MD
--- NOTE | 2018-05-13 19:22 | CP.PCM.DIS ---
Provider - Provider Date of Admission: 05/09/18 00:16 Attending physician: John Brunson MD Time Spent in preparation of Discharge (in minutes): 30 Hospital Course - Lab Results Lab Results: Micro Results 05/09/18 06:15 Blood-Venous Blood Culture - Preliminary NO GROWTH AFTER 4 DAYS 05/09/18 06:00 Blood-Venous Blood Culture - Preliminary NO GROWTH AFTER 4 DAYS 05/08/18 22:10 Urine Random Urine Culture - Final No Growth (<1,000 CFU/ML) Most Recent Lab Values WBC 26.3 K/uL (4.8-10.8) H 05/11/18 07:00 RBC 4.91 Mil/uL (4.40-5.90) 05/11/18 07:00 Hgb 13.1 g/dL (12.0-18.0) 05/11/18 07:00 Hct 41.5 % (35.0-51.0) 05/11/18 07:00 MCV 84.5 fL (80.0-94.0) 05/11/18 07:00 MCH 26.6 pg (27.0-31.0) L 05/11/18 07:00 MCHC 31.5 g/dL (33.0-37.0) L 05/11/18 07:00 RDW 19.2 % (11.5-14.5) H 05/11/18 07:00 Plt Count 649 K/uL (130-400) H 05/11/18 07:00 MPV 6.9 fL (7.2-11.7) L 05/11/18 07:00 Neut % (Auto) 76.1 % (50.0-75.0) H 05/11/18 07:00 Lymph % (Auto) 17.0 % (20.0-40.0) L 05/11/18 07:00 [place] % (Auto) 5.6 % (0.0-10.0) 05/11/18 07:00 Eos % (Auto) 0.8 % (0.0-4.0) 05/11/18 07:00 Baso % (Auto) 0.5 % (0.0-2.0) 05/11/18 07:00 Neut # (Auto) 20.1 K/uL (1.8-7.0) H 05/11/18 07:00 Lymph # (Auto) 4.5 K/uL (1.0-4.3) H 05/11/18 07:00 [place] # (Auto) 1.5 K/uL (0.0-0.8) H 05/11/18 07:00 Eos # (Auto) 0.2 K/uL (0.0-0.7) 05/11/18 07:00 Baso # (Auto) 0.1 K/uL (0.0-0.2) 05/11/18 07:00 Neutrophils % (Manual) 81 % (50-75) H 05/08/18 22:10 Band Neutrophils % 3 % (0-2) H 05/08/18 22:10 Lymphocytes % (Manual) 9 % (20-40) L 05/08/18 22:10 Monocytes % (Manual) 4 % (0-10) 05/08/18 22:10 Eosinophils % (Manual) 3 % (0-4) 05/08/18 22:10 Differential Comment 05/10/18 11:15 Platelet Estimate Markedly decreased (NORMAL) L 05/08/18 22:10 Sodium 139 mmol/L (132-148) 05/11/18 07:00 Potassium 3.7 mmol/L (3.6-5.2) 05/11/18 07:00 Chloride 102 mmol/L (98-107) 05/11/18 07:00 Carbon Dioxide 27 mmol/L (22-30) 05/11/18 07:00 Anion Gap 14 (10-20) 05/11/18 07:00 BUN 12 mg/dL (9-20) 05/11/18 07:00 Creatinine 0.5 mg/dL (0.8-1.5) L 05/11/18 07:00 Est GFR ( Amer) > 60 05/11/18 07:00 Est GFR (Non-Af Amer) > 60 05/11/18 07:00 POC Glucose (mg/dL) 128 mg/dL (65-110) H 05/11/18 22:48 Random Glucose 138 mg/dL (75-110) H 05/11/18 07:00 Hemoglobin A1c 7.3 % (4.2-6.5) H 05/09/18 14:01 Calcium 9.0 mg/dl (8.6-10.4) 05/11/18 07:00 Phosphorus 3.4 mg/dL (2.5-4.5) 05/11/18 07:00 Magnesium 1.5 mg/dL (1.6-2.3) L 05/11/18 07:00 Total Bilirubin 0.2 mg/dL (0.2-1.3) 05/11/18 07:00 AST 18 U/L (17-59) 05/11/18 07:00 ALT 9 U/L (21-72) L D 05/11/18 07:00 Alkaline Phosphatase 142 U/L (38-126) H 05/11/18 07:00 Total Protein 6.7 g/dL (6.3-8.3) 05/11/18 07:00 Albumin 3.5 g/dL (3.5-5.0) 05/11/18 07:00 Globulin 3.2 gm/dL (2.2-3.9) 05/11/18 07:00 Albumin/Globulin Ratio 1.1 (1.0-2.1) 05/11/18 07:00 Triglycerides 189 mg/dL (0-149) H D 05/09/18 14:01 Cholesterol 202 mg/dL (0-199) H 05/09/18 14:01 LDL Cholesterol Direct 132 mg/dL (0-129) H 05/09/18 14:01 HDL Cholesterol 49 mg/dL (30-70) 05/09/18 14:01 Lipase 154 U/L (23-300) 05/08/18 22:10 Procalcitonin 0.23 NG/ML (0.19-0.49) 05/09/18 14:01 Urine Color Yellow (YELLOW) 05/08/18 22:10 Urine Clarity Hazy (Clear) 05/08/18 22:10 Urine pH 5.0 (5.0-8.0) 05/08/18 22:10 Ur Specific [place] 1.016 (1.003-1.030) 05/08/18 22:10 Urine Protein Negative mg/dL (NEGATIVE) 05/08/18 22:10 Urine Glucose (UA) Normal mg/dL (Normal) 05/08/18 22:10 Urine Ketones Negative mg/dL (NEGATIVE) 05/08/18 22:10 Urine Blood 3+ (NEGATIVE) H 05/08/18 22:10 Urine Nitrate Negative (NEGATIVE) 05/08/18 22:10 Urine Bilirubin Negative (NEGATIVE) 05/08/18 22:10 Urine Urobilinogen Normal mg/dL (0.2-1.0) 05/08/18 22:10 Ur Leukocyte Esterase 2+ Sima/uL (Negative) H 05/08/18 22:10 Urine WBC (Auto) 23 /hpf (0-5) H 05/08/18 22:10 Urine RBC (Auto) 235 /hpf (0-3) H 05/08/18 22:10 Urine Bacteria Rare (<OCC) 05/08/18 22:10 Hyaline Casts 3-5 /lpf (0-2) H 05/08/18 22:10 Discharge Plan - Discharge Medications Prescriptions: Glimepiride [Amaryl] 1 mg PO DAILY 30 Days tab Docusate [Colace] 100 mg PO BID 30 Days cap Metoprolol Tartrate [Lopressor] 25 mg PO BID 30 Days tab Lisinopril [Zestril] 20 mg PO DAILY 30 Days tab - Follow Up Plan Condition: FAIR Disposition: HOME/ ROUTINE Instructions: Docusate, Glimepiride, Lisinopril, Metoprolol, Urinary Tract Infection in Men (DC), Leukocytosis (DC) Additional Instructions: FOLLOW UP WITH DR BRUNSON IN HIS OFFICE CONTINUE HOME MEDICATION ORDER NEW PRESCRIPTION GIVEN METOPROLOL/ LISINOPRIL/ COLACE / AND AMARYL ACTIVITY TOLERATED CALL DR BRUNSON OR GO TO THE EMERGENCY ROOM IF SYMPTOM RETURN OR WORSENING Referrals: John Brunson MD [Staff Provider] -
--- NOTE | 2018-05-14 15:27 | DS ---
HISTORY OF PRESENT ILLNESS: The patient is feeling better. He is afebrile. His WBC went down. He has no fever. His urine cultures are negative. His leukocytosis is due to steroids. His CT abdomen and pelvis did not show any evidence of acute inflammation or infection, so did the urine culture. The patient has pelvic kidney on the right side and a small stone which is nonobstructing. The patient is for discharge. He is stable. PHYSICAL EXAMINATION: LUNGS: Clear. CARDIOVASCULAR SYSTEM: S1 and S2 regular. ABDOMEN: Soft. SKIN: Extensive desquamating skin lesion. PLAN: Discharge the patient. Monitor the patient. John Brunson MD
== END 2018-05-12 00:41 | disposition home or self-care (01) | DRG 607 ==
LOC: C.ER 19:59 → C.9E 05-09 00:16 → C.3T 05-09 01:24
PROVIDERS: ADMIT Internal Medicine; ATTEND Internal Medicine
DX: L27.0 Generalized skin eruption due to drugs and medicaments taken internally (principal); F84.0 Autistic disorder; E78.00 Pure hypercholesterolemia, unspecified; E86.0 Dehydration; I12.9 Hypertensive chronic kidney disease with stage 1 through stage 4 chronic kidney disease, or unspecified chronic kidney disease; F79 Unspecified intellectual disabilities; T37.0X5A Adverse effect of sulfonamides, initial encounter; L40.9 Psoriasis, unspecified; M06.9 Rheumatoid arthritis, unspecified; Z74.01 Bed confinement status; K21.9 Gastro-esophageal reflux disease without esophagitis; J45.909 Unspecified asthma, uncomplicated; N18.9 Chronic kidney disease, unspecified; T38.0X5A Adverse effect of glucocorticoids and synthetic analogues, initial encounter; D72.829 Elevated white blood cell count, unspecified; E09.9 Drug or chemical induced diabetes mellitus without complications